=== PATIENT | male | born 1935 | race Caucasian/White ===

== ENCOUNTER 2017-08-03 02:17 | Inpatient (IN) ==
[2017-08-03] MEDS ORDERED: 0.9 % Sodium Chloride 1,000 ML IVC ONE (02:33)
--- NOTE | 2017-08-03 02:35 | Emergency Department Note ---
Disposition Clinical Impression: Hyponatremia, Elevated troponin, VIRIDIANA (acute kidney injury), Elevated INR Leukocytosis Qualifiers: Leukocytosis type: unspecified Qualified Code(s): D72.829 - Elevated white blood cell count, unspecified Anemia Qualifiers: Anemia type: unspecified type Qualified Code(s): D64.9 - Anemia, unspecified Disposition: Transfer Other Condition: Fair Time of Disposition: 05:48 Weakness HPI - General Chief complaint: ED Weakness Stated complaint: AMS Time Seen by Provider: 08/03/17 02:23 Source: patient, family, EMS Limitations: no limitations Nursing Notes Reviewed: Yes Vital Signs Reviewed: Yes - History of Present Illness HPI Narrative: Patient is an 82-year-old male with past medical history of sepsis proximally 2- 3 weeks ago secondary to UTI, CHF, A. fib and currently on Coumadin, COPD, diabetes He also had a recent right ankle injury, sprain with reported negative x-rays at outside facility. He presents today due to generalized fatigue, altered mental status. states that over the past 1-2 days, patient has become increasingly confused, has had difficulty with ambulation. The patient himself denies any chest pain, shortness of breath, nausea, vomiting , fevers, bowel pain, dysuria, hematuria. Pain Scale: 0 - Related Data Home Medications Medication Instructions Recorded Confirmed Advair 500-50 Diskus 12/11/14 12/11/14 Aspirin 81 mg PO DAILY 12/11/14 12/11/14 Calcium 600 + D Tablet 600 mg PO DAILY 12/11/14 12/11/14 Cozaar 50 mg PO DAILY 12/11/14 12/11/14 Cymbalta 60 mg PO DAILY 12/11/14 12/11/14 Duoneb 3 mg PO Q4HR 12/11/14 12/11/14 Furosemide 40 mg PO 1-2XD 12/11/14 12/11/14 Glucosamine Sulfate 500 mg PO BID 12/11/14 12/11/14 HumaLOG 100 ml SQ DAILY 12/11/14 12/11/14 Ketoconazole 2% CRM DAILY 12/11/14 12/11/14 Levemir 40 units SQ HS 12/11/14 12/11/14 Levothyroxine Sodium 75 mcg PO DAILY 12/11/14 12/11/14 Lipitor 40 mg PO DAILY 12/11/14 12/11/14 Losartan 50 mg PO DAILY 12/11/14 12/11/14 Metoprolol XL (24 HR) Succ 50 mg PO DAILY 12/11/14 12/11/14 Potassium Chloride 20 meq PO DAILY 12/11/14 12/11/14 Spiriva 18 mcg PO DAILY 12/11/14 12/11/14 Vitamin E 400 mg PO 1-2XD 12/11/14 12/11/14 Warfarin 7.5 mg PO DAILY 12/11/14 12/11/14 Allergies Allergy/AdvReac Type Severity Reaction Status Date / Time metformin [From Glucophage] Allergy Diarrhea Verified 12/11/14 11:57 All systems ED: reviewed and negative except as stated. Constitutional: Denies: fever Cardiovascular: Denies: chest pain Respiratory: Denies: cough, dyspnea Gastrointestinal: Denies: abdominal pain, nausea, vomiting, diarrhea Neurological: Reports: confusion, abnormal gait. Denies: headache, weakness, numbness, paresthesias Endocrine: Reports: fatigue Past Medical History - Past Medical History Attestation: Yes The following information was validated with the patient. Source: patient Medical history: Reports: COPD, diabetes Psychiatric history: Reports: no psych history - Social History Smoking Status: Former smoker Physical Exam - General Limitations: no limitations General appearance: in no apparent distress - Head Head exam: atraumatic, normocephalic, normal inspection - Eye Eye exam: Present: normal appearance, PERRL, EOMI - ENT ENT exam: normal exam, normal oropharynx, mucous membranes moist - Neck Neck exam: Present: normal inspection, full ROM, trachea midline - Chest Chest inspection: Present: normal inspection, symmetric chest wall rise - Respiratory Respiratory exam: Present: normal lung sounds bilaterally - Cardiovascular Cardiovascular exam: Present: tachycardia, irregular rhythm, normal heart sounds - Abdominal Exam Abdominal exam: Present: soft, Non-Tender. Absent: tenderness, distention, guarding, rebound, rigidity - Extremities Exam Extremities exam: Present: full ROM, other (Right ankle and foot ecchymosis and mild edema from previous right ankle injury.) - Neurological Exam Neurological exam: Present: alert, oriented X3, CN II-XII intact. Absent: motor sensory deficit - Expanded Neurological Exam Patient oriented to: Present: person, place. Absent: time Speech: Present: fluid speech Cranial nerves: EOM function (II, III, IV, ): Normal, facial sensation (V): Normal, facial palsy (VII): Normal, spinal accessory function (XI): Normal, tongue deviation (XII): Normal Motor strength - LUE: 5/5 Motor strength - RUE: 5/5 Motor strength - LLE: 5/5 Motor strength - RLE: 5/5 Sensory exam upper extremity: light touch: Normal Sensory exam lower extremity: light touch: Normal Coma Scale Eye Opening: Spontaneous Coma Scale Motor Response: Obeys Commands Coma Scale Verbal Response: Confused Coma Scale Total: 14 - Psychiatric Psychiatric exam: Present: normal mood, flat affect - Skin Skin exam: Present: warm, dry, intact, normal color. Absent: rash Course Course Narrative: Patient was hypertensive on presentation with systolic blood pressure in 80s. However, after 1 L normal saline bolus, pressure has come up to systolic of 107. On exam, patient was oriented to person and place but not time. He thinks that this is the 1980s. Otherwise no focal neurologic deficits. Basic lab work obtained. Chest x-ray negative for any acute cardio pulmonary process. Urinalysis negative for UTI. CBC shows leukocytosis and mild anemia. BMP concerning for critically low sodium at 118. Creatinine above baseline, concern for a cab. Troponin elevated. Patient has no complete any chest pain or shortness of breath. EKG shows no acute ST changes. This could be secondary to demand ischemia. Patient was given aspirin. He was not started on any heparin at this time. 05:37 and discussed patient's case with the help desk operator, Dr. Chowdary. With patient having no chest pain or shortness of breath at this time but elevated troponin level of 0.77, she recommended that heparin be started if the INR not in therapeutic range. However, INR came back at 8. Will hold Coumadin, not start any heparin at this time. No signs of bleeding, no need for any reversal of this time. Accepted for admisison by Dr. Cobb. Chest X-Ray 08/03/17 02:33 IMPRESSION: 1. No acute process. 2. Findings suggestive of COPD. D/ / Aldair Craft MD / Aldair Craft MD Interpreting Provider: Aldair Craft MD Vital Signs Temperature 98.5 F 08/03/17 02:18 Pulse Rate 102 08/03/17 02:18 Respiratory Rate 18 08/03/17 02:18 Blood Pressure 87/60 08/03/17 02:18 O2 Sat by Pulse Oximetry 95 08/03/17 02:18 Temperature 98.5 F 08/03/17 02:18 Pulse Rate 92 08/03/17 05:43 Respiratory Rate 18 08/03/17 05:43 Blood Pressure 108/56 08/03/17 05:43 O2 Sat by Pulse Oximetry 99 08/03/17 05:43 Oxygen Delivery Oxygen Delivery Room Air Weakness - MDM Narrative Medical decision making narrative: Patient was hypertensive on presentation with systolic blood pressure in 80s. However, after 1 L normal saline bolus, pressure has come up to systolic of 107. On exam, patient was oriented to person and place but not time. He thinks that this is the . Otherwise no focal neurologic deficits. Basic lab work obtained. Chest x-ray negative for any acute cardio pulmonary process. Urinalysis negative for UTI. CBC shows leukocytosis and mild anemia. BMP concerning for critically low sodium at 118. Creatinine above baseline, concern for a cab. Troponin elevated. Patient has no complete any chest pain or shortness of breath. EKG shows no acute ST changes. This could be secondary to demand ischemia. Patient was given aspirin. He was not started on any heparin at this time. 05:37 and discussed patient's case with the help desk operator, Dr. Chowdary. With patient having no chest pain or shortness of breath at this time but elevated troponin level of 0.77, she recommended that heparin be started if the INR not in therapeutic range. However, INR came back at 8. Will hold Coumadin, not start any heparin at this time. No signs of bleeding, no need for any reversal of this time. Accepted for admisison by Dr. Cobb. - Medical Records Medical records reviewed: Yes I reviewed the patient's medical records. - Lab Data Lab results reviewed: Yes I reviewed the patient's lab results. Result diagrams: 08/03/17 02:33 08/03/17 02:33 Lab Results 08/03/17 08/03/17 08/03/17 Range/Units 02:33 02:33 02:55 WBC 15.9 H (4.3-11.1) K/mcL RBC 3.90 L (4.19-5.50) M/mcL Hgb 11.6 L (12.9-16.9) g/dL Hct 32.9 L (37.5-50.1) % MCV 84.4 (83.0-100.0) fL MCH 29.7 (28.0-33.3) pg MCHC 35.3 (31.6-35.5) g/dL RDW 16.2 H (11.5-14.5) % Plt Count 339 (140-400) K/mcL MPV 9.3 L (9.4-12.4) fL Immature Gran % 2.0 (0-4) % Seg Neutrophils % 84.7 % Lymphocytes % 3.8 % Monocytes % 8.8 % Eosinophils % 0.6 % Basophils % 0.1 % Neutrophils # 13.5 H (1.6-8.9) K/mcL Lymphocytes # 0.6 (0.6-4.6) K/mcL Monocytes # 1.4 H (0.0-1.3) K/mcL Eosinophils # 0.1 (0.0-0.6) K/mcL Basophils # 0.0 (0.0-0.2) K/mcL PT (9.4-12.1) Seconds INR APTT (26.0-36.0) Seconds Sodium 118 L* (136-145) mEq/L Potassium 4.7 (3.5-5.1) mEq/L Chloride 83 L (98-107) mEq/L Carbon Dioxide 23 (23-29) mEq/L BUN 118 H (8-23) mg/dL Creatinine 2.23 H (0.70-1.30) mg/dL Est GFR ( Amer) 34 L (> 60) Est GFR (Non-Af Amer) 28 L (> 60) BUN/Creatinine Ratio 53 H (6-26) Glucose 271 H (70-105) mg/dL Calculated Osmolality 293 (280-300) Lactic Acid 2.4 H (0.5-2.2) mmol/L Calcium 8.7 (8.6-10.3) mg/dL Total Bilirubin 0.7 (0.3-1.0) mg/dL AST 73 H (13-39) Units/L ALT 28 (7-52) Units/L Alkaline Phosphatase 83 (34-104) Units/L Troponin I 0.77 H* (< 0.04) ng/mL Serum Total Protein 6.9 (6.4-8.9) g/dL Albumin 3.5 (3.5-5.7) g/dL Globulin 3.4 (2.4-3.5) g/dL Albumin/Globulin Ratio 1.0 L (1.1-2.2) Urine Color (Yellow) Urine Clarity (Clear) Urine pH (5.0-8.0) pH Units Ur Specific [place] (1.010-1.025) Urine Protein (Neg-Trace) mg/dL Urine Glucose (UA) (Normal) mg/dL Urine Ketones (Negative) mg/dL Urine Blood (Negative) Urine Nitrite (Negative) Urine Bilirubin (Negative) Urine Urobilinogen (Normal) mg/dL Ur Leukocyte Esterase (Negative) Urine Microscopic RBC (0-3) per hpf Urine Microscopic WBC (0-3) per hpf Ur Squamous Epith Cells (None-Few) per lpf Urine Bacteria (None-Few) per hpf Hyaline Casts (None-Few) per lpf Ur Culture Indicated? (NO) 08/03/17 08/03/17 Range/Units 02:55 03:41 WBC (4.3-11.1) K/mcL RBC (4.19-5.50) M/mcL Hgb (12.9-16.9) g/dL Hct (37.5-50.1) % MCV (83.0-100.0) fL MCH (28.0-33.3) pg MCHC (31.6-35.5) g/dL RDW (11.5-14.5) % Plt Count (140-400) K/mcL MPV (9.4-12.4) fL Immature Gran % (0-4) % Seg Neutrophils % % Lymphocytes % % Monocytes % % Eosinophils % % Basophils % % Neutrophils # (1.6-8.9) K/mcL Lymphocytes # (0.6-4.6) K/mcL Monocytes # (0.0-1.3) K/mcL Eosinophils # (0.0-0.6) K/mcL Basophils # (0.0-0.2) K/mcL PT 90.3 H* (9.4-12.1) Seconds INR 8.0 H* APTT 49.7 H (26.0-36.0) Seconds Sodium (136-145) mEq/L Potassium (3.5-5.1) mEq/L Chloride (98-107) mEq/L Carbon Dioxide (23-29) mEq/L BUN (8-23) mg/dL Creatinine (0.70-1.30) mg/dL Est GFR ( Amer) (> 60) Est GFR (Non-Af Amer) (> 60) BUN/Creatinine Ratio (6-26) Glucose (70-105) mg/dL Calculated Osmolality (280-300) Lactic Acid (0.5-2.2) mmol/L Calcium (8.6-10.3) mg/dL Total Bilirubin (0.3-1.0) mg/dL AST (13-39) Units/L ALT (7-52) Units/L Alkaline Phosphatase (34-104) Units/L Troponin I (< 0.04) ng/mL Serum Total Protein (6.4-8.9) g/dL Albumin (3.5-5.7) g/dL Globulin (2.4-3.5) g/dL Albumin/Globulin Ratio (1.1-2.2) Urine Color Yellow (Yellow) Urine Clarity Clear (Clear) Urine pH 6.0 (5.0-8.0) pH Units Ur Specific [place] 1.012 (1.010-1.025) Urine Protein Negative (Neg-Trace) mg/dL Urine Glucose (UA) 100 H (Normal) mg/dL Urine Ketones Negative (Negative) mg/dL Urine Blood Small H (Negative) Urine Nitrite Negative (Negative) Urine Bilirubin Negative (Negative) Urine Urobilinogen Normal (Normal) mg/dL Ur Leukocyte Esterase Small H (Negative) Urine Microscopic RBC 0-3 (0-3) per hpf Urine Microscopic WBC 5-15 H (0-3) per hpf Ur Squamous Epith Cells Moderate H (None-Few) per lpf Urine Bacteria None Seen (None-Few) per hpf Hyaline Casts None Seen (None-Few) per lpf Ur Culture Indicated? YES A (NO) - Radiology Data Radiology results reviewed: Yes I reviewed the patient's radiology results. Chest X-Ray 08/03/17 02:33 IMPRESSION: 1. No acute process. 2. Findings suggestive of COPD. D/ / Aldair Craft MD / Aldair Craft MD Interpreting Provider: Aldair Craft MD - EKG Data EKG attestation: Yes I reviewed and interpreted this EKG. EKG results narrative: 08/03/2017 02:42. A. fib. Rate 80. QRS 92. QTC 393. Normal axis. No acute ST elevation or depression. Attestation Statement - Attestation Attestation: I examined this patient and my medical decision-making was reviewed with the Resident Physician. I agree with the documented findings, disposition and treatment plan as described except to the extent set forth below. Findings consistent with altered mental status. The patient does have hyponatremia and weakness. There was intermittent hypotension. Initially the family requests transfer [facility] but ultimately they cannot offer cardiology support and the patient will be admitted here due to an STEMI, hyponatremia, hypotension, possible sepsis. I spent greater than 35 minutes of critical care time resuscitating this acutely ill patient suffering from hyponatremia, hypotension, sepsis. This was excluding billable procedures.
[2017-08-03 03:12] LABS: Basophils % 0.1 %; Eosinophils # 0.1 K/mcL (0.0-0.6); Eosinophils % 0.6 %; Hematocrit 32.9 % (37.5-50.1); Hemoglobin 11.6 g/dL (12.9-16.9); Lymphocytes # 0.6 K/mcL (0.6-4.6); Lymphocytes % 3.8 %; Mean Corpuscular HGB Conc 35.3 g/dL (31.6-35.5); Mean Corpuscular Hemoglobin 29.7 pg (28.0-33.3); Mean Corpuscular Volume 84.4 fL (83.0-100.0); Mean Platelet Volume 9.3 fL (9.4-12.4); Monocytes # 1.4 K/mcL (0.0-1.3); Monocytes % 8.8 %; Neutrophils # 13.5 K/mcL (1.6-8.9); Platelet Count 339 K/mcL (140-400); Red Cell Distribution Width 16.2 % (11.5-14.5); Segmented Neutrophils % 84.7 %
[2017-08-03] MEDS ORDERED: Piperacillin/Tazobactam 3.375 GM in 0.9 % Sodium Chloride Mini Bag 100 ML IVPB ONE (03:28)
[2017-08-03] MEDS ORDERED: Aspirin 325 MG TABLET PO ONE (03:36)
[2017-08-03 03:37] LABS: Albumin 3.5 g/dL (3.5-5.7); Bilirubin,Total 0.7 mg/dL (0.3-1.0); Calcium 8.7 mg/dL (8.6-10.3); Globulin 3.4 g/dL (2.4-3.5); Potassium 4.7 mEq/L (3.5-5.1); Total Protein 6.9 g/dL (6.4-8.9); Troponin I 0.77 ng/mL (< 0.04)
[2017-08-03 03:58] LABS: Bilirubin,Urine Negative (Negative); Blood,Urine Small (Negative); Clarity,Urine Clear (Clear); Color,Urine Yellow (Yellow); Glucose,Urine (UA) 100 mg/dL (Normal); Ketones,Urine Negative (Negative); Leukocyte Esterase,Urine Small (Negative); Nitrite,Urine Negative (Negative); Protein,Urine Negative (Neg-Trace); Specific Gravity,Urine 1.012 (1.010-1.025); Urobilinogen,Urine Normal (Normal)
[2017-08-03 04:01] LABS: Bacteria,Urine None Seen per hpf (None-Few); Hyaline Casts,Urine None Seen per lpf (None-Few); RBC,Urine 0-3 per hpf (0-3); Squamous Epithelial Cell,Urine Moderate per lpf (None-Few)
[2017-08-03 05:29] LABS: Activated Partial Thrombo Time 49.7 Seconds (26.0-36.0)
[2017-08-03] MEDS ORDERED: 0.9 % Sodium Chloride 1,000 ML IVC SCH ×2 (05:30→06:15)
[2017-08-03 05:31] LABS: Prothrombin Time 90.3 Seconds (9.4-12.1)
--- NOTE | 2017-08-03 05:57 | Internal Med History&Physical ---
Date of Encounter: 08/03/17 Time of Encounter: 05:50 Internal Medicine - H&P: HPI Chief complaint: fall/confusion Admitted From: Home Plans for Post Hospital Care: Home History of present illness: Mr. Mack is a 82 year old male w/ pmh of recent UTI sepsis, recent "sprained ankles", COPD, DM on insulin, hypothyroid, HTN, afib, CHF, GERD presented to [place] after experiencing a fall and confusion. Patient late last night got up to have a bowel movement in the restroom, after he finished he got up and on his way back experienced a fall. Patient's was unable to get patient up, and she called squad to get patient. Patient was brought to [place] and found to have an elevated trops and transferred to [place]. Fall was unwitnessed, and by the time patient arrived at [place] patient was confused and disoriented according to ED notes. Patient was poor historian, and history was gathered from . Patient denies chest pain, sob, abd pain, nausea, vomiting, diaphoresis. Past Med Surg Social Fam HX - Past Medical History Medical history: COPD, diabetes Psychiatric history: no psych history - Social History Smoking Status: Former smoker Internal Medicine - H&P: Meds Advair 500-50 Diskus 12/11/14 [History] Aspirin 81 mg PO DAILY 12/11/14 [History] Calcium 600 + D Tablet 600 mg PO DAILY 12/11/14 [History] Cozaar 50 mg PO DAILY 12/11/14 [History] Cymbalta 60 mg PO DAILY 12/11/14 [History] Duoneb 3 mg PO Q4HR 12/11/14 [History] Furosemide 40 mg PO 1-2XD 12/11/14 [History] Glucosamine Sulfate 500 mg PO BID 12/11/14 [History] HumaLOG 100 ml SQ DAILY 12/11/14 [History] Ketoconazole 2% CRM DAILY 12/11/14 [History] Levemir 40 units SQ HS 12/11/14 [History] Levothyroxine Sodium 75 mcg PO DAILY 12/11/14 [History] Lipitor 40 mg PO DAILY 12/11/14 [History] Losartan 50 mg PO DAILY 12/11/14 [History] Metoprolol XL (24 HR) Succ 50 mg PO DAILY 12/11/14 [History] Potassium Chloride 20 meq PO DAILY 12/11/14 [History] Spiriva 18 mcg PO DAILY 12/11/14 [History] Vitamin E 400 mg PO 1-2XD 12/11/14 [History] Warfarin 7.5 mg PO DAILY 12/11/14 [History] 3 Allergy/AdvReac Type Severity Reaction Status Date / Time metformin [From Glucophage] Allergy Diarrhea Verified 12/11/14 11:57 ROS unobtainable: due to mental status All Systems PM: A 10-system review of systems was performed and is negative for pertinent findings except as documented above in the HPI. - Constitutional Vitals: Temp Pulse Resp BP Pulse Ox 98.5 F 92 18 108/56 99 08/03/17 02:18 08/03/17 05:43 08/03/17 05:43 08/03/17 05:43 08/03/17 05:43 General appearance: Present: A&O X 1 (oriented to self. 1982, [facility]) , disheveled, obese. Absent: answers questions appropriately - Head Head exam: Present: atraumatic, normocephalic - Eye Eye exam: Present: PERRL, conjuntiva pink, sclera anicteric Pupils: Present: PERRL - Neck Neck exam general surgery: Present: supple, trachea midline. Absent: lymphadenopathy - Respiratory Respiratory exam: Present: wheezes. Absent: accessory muscle use, rales, rhonchi - Cardiovascular Cardiovascular exam: Present: RRR. Absent: diastolic murmur, gallop, rubs, systolic murmur - GI/Abdominal GI/Abdominal exam: Present: diminished bowel sounds, firm, no peritoneal signs. Absent: distended, guarding, hepatomegaly, rebound, tenderness - Extremities Exam Extremities exam: Present: tenderness (below knees bilaterally.), warm, radial pulses palpable and symmetrical. Absent: calf tenderness, cyanotic, pedal edema Additional comments: bilateral below knee contusions - Neurological Exam Neurological exam: Present: alert, CN II-XII intact, no focal deficits. Absent : pronater drift, facial droop, speech deficit Additional comments: patient was unable to follow command for neuro exam - Skin Skin exam: Present: dry, intact Internal Med - H&P Results - Labs CBC & Chem 7: 08/03/17 02:33 08/03/17 02:33 Labs: Short CBC 08/03/17 Range/Units 02:33 WBC 15.9 H (4.3-11.1) K/mcL Hgb 11.6 L (12.9-16.9) g/dL Hct 32.9 L (37.5-50.1) % Plt Count 339 (140-400) K/mcL Neutrophils # 13.5 H (1.6-8.9) K/mcL BMP 08/03/17 02:33 Sodium 118 L* Potassium 4.7 Chloride 83 L Carbon Dioxide 23 BUN 118 H Creatinine 2.23 H Glucose 271 H Calcium 8.7 Cardiac Enzymes 08/03/17 Range/Units 02:33 Troponin I 0.77 H* (< 0.04) ng/mL Liver Function 08/03/17 Range/Units 02:33 Total Bilirubin 0.7 (0.3-1.0) mg/dL AST 73 H (13-39) Units/L ALT 28 (7-52) Units/L Alkaline Phosphatase 83 (34-104) Units/L Albumin 3.5 (3.5-5.7) g/dL Urine 08/03/17 Range/Units 03:41 Urine Color Yellow (Yellow) Urine Clarity Clear (Clear) Urine pH 6.0 (5.0-8.0) pH Units Ur Specific [place] 1.012 (1.010-1.025) Urine Protein Negative (Neg-Trace) mg/dL Urine Glucose (UA) 100 H (Normal) mg/dL - Impressions ITS Impressions Chest X-Ray 08/03/17 02:33 IMPRESSION: 1. No acute process. 2. Findings suggestive of COPD. D/ / Aldair Craft MD / Aldair Craft MD Interpreting Provider: Aldair Craft MD - Assessment and plan (1) Elevated troponin Current Visit: Yes Status: Acute Assessment and plan: Trops on admission 0.77. patient is currently asymptomatic but is also confused. EKG showed no ischemic changes - cardiology consulted - serial trops (2) Elevated INR Current Visit: Yes Status: Acute Assessment and plan: patient has INR of 8.0 on admission most likely 2/2 VIRIDIANA and poor renal clearance of coumadin. Patient is on coumadin for afib - hold coumadin for now. (3) VIRIDIANA (acute kidney injury) Current Visit: Yes Status: Acute Assessment and plan: Cr elevated on admission most likely 2/2 dehydration. Will hydrate and follow closely. Patient is on Turosemide at [place] will order labs for FEUrea - consult nephro - continue IVF - trend Cr - urine creatinine and urine urea ordered (4) High ankle sprain of left lower extremity Current Visit: Yes Status: Acute Assessment and plan: previous worked up a gonzalez, no fracture Qualifiers: Qualified Code(s): S93.432A - Sprain of tibiofibular ligament of left ankle, initial encounter (5) High ankle sprain of right lower extremity Current Visit: Yes Status: Acute Assessment and plan: previous worked up a gonzalez, no fracture Qualifiers: Qualified Code(s): S93.431A - Sprain of tibiofibular ligament of right ankle , initial encounter (6) Anemia Current Visit: Yes Status: Acute Assessment and plan: hgb on admissions 11.6. may be contributing to patient AMS. Patient is high risk and will follow closely - daily h/h Qualifiers: Anemia type: unspecified type Qualified Code(s): D64.9 - Anemia, unspecified (7) Hyponatremia Current Visit: Yes Status: Acute Assessment and plan: Na on admission 118. fluid given in ED - trend Na q4h - continue IVF - uOSM, Jose ordered (8) Leukocytosis Current Visit: Yes Status: Acute Assessment and plan: WBC on admission 15.9, may be in the setting of recent ankle sprain. Patient was recently hospitalized for sepsis with UTI as source, patient is high risk. No other SIRS criteria met. - closely follow vitals - morning labs Qualifiers: Leukocytosis type: unspecified Qualified Code(s): D72.829 - Elevated white blood cell count, unspecified (9) Diabetes mellitus with neuropathy Current Visit: Yes Status: Acute Assessment and plan: hold home insulin. medium SSI Qualifiers: Diabetes mellitus type: type 2 Qualified Code(s): E11.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, unspecified; Z79.4 - investment counselor (current) use of insulin (10) Hypothyroid Current Visit: Yes Status: Acute Assessment and plan: continue home Rx Qualifiers: Qualified Code(s): E03.9 - Hypothyroidism, unspecified (11) Afib Current Visit: Yes Status: Acute Assessment and plan: currently controlled, continue home rx Qualifiers: Qualified Code(s): I48.91 - Unspecified atrial fibrillation (12) COPD (chronic obstructive pulmonary disease) Current Visit: Yes Status: Acute Assessment and plan: history of COPD, patient does not clinically have COPD exacerbation symptoms. Will continue to monitor closely Qualifiers: Qualified Code(s): J44.9 - Chronic obstructive pulmonary disease, unspecified (13) CHF (congestive heart failure) Current Visit: Yes Status: Acute Assessment and plan: reported history of COPD. continue home rx - ordered BNP Qualifiers: Qualified Code(s): I50.9 - Heart failure, unspecified (14) GERD (gastroesophageal reflux disease) Current Visit: Yes Status: Acute Assessment and plan: continue home rx. Qualifiers: Qualified Code(s): K21.9 - Gastro-esophageal reflux disease without esophagitis (15) Hypertension Current Visit: Yes Status: Acute Assessment and plan: currently stable, continue home rx Qualifiers: Qualified Code(s): I10 - Essential (primary) hypertension (16) Goals of care, counseling/discussion Current Visit: Yes Status: Acute Assessment and plan: is PoA. [facility] [phone]. has PoA and DNR/DNI/CCA paper work. (17) Confusion Current Visit: Yes Status: Acute Assessment and plan: serial clinical exams (18) Fall Current Visit: Yes Status: Acute Assessment and plan: unwitness fall. Patient is high risk due to INR of 8.0, confusion and PMHx. - Ordered CT head to rule out brain hemorrhage. Qualifiers: Qualified Code(s): W19.XXXA - Unspecified fall, initial encounter (19) DVT prophylaxis Current Visit: Yes Status: Acute Assessment and plan: EPCD. holding coumadin due to INR ~8 - Time Spent With Patient Total time spent is greater than 50% in coordination of care (as documented) at patient's floor/unit and/or counseling patient:
[2017-08-03] MEDS ORDERED: D5% in Water 1,000 ML IVC PRN (06:14)
[2017-08-03] MEDS ORDERED: Dextrose Gel 15 GM/37.5 ML TUBE PO PRN ×2 (06:14)
[2017-08-03] MEDS ORDERED: *HR* Dextrose 50 % in Water (Syg) 50 ML SYRINGE IVP PRN (06:14)
[2017-08-03] MEDS ORDERED: Naloxone 0.4 MG/ML INJ IVP PRN (06:15)
--- NOTE | 2017-08-03 06:37 | Event Note ---
Date of Encounter: 08/03/17 Time of Encounter: 06:29 Patient was seen and examined. I agree with the H&P as written by the Resident Physician. Briefly, patient with history of recent hospitalization for UTI sepsis at [place] and discharged about 3 weeks. ago. Has not been himself since discharged and progressively weak. Signs of confusion since last week but nothing major. Last couple of days he has been more confused. Per his , he has had a decrease in his normal oral intake by about half since discharge from there. He had sprained his right ankle about a week ago. Today, she was walking him to the bathroom and he kid of fell but never hit his head. He was confused and she couldnt get him up. They ended up here where laboratory work up showed sings of dehydration and low Na at 118. INR 8.0. Trops .77. No reported chest pain. Cardiology were made aware and recommended no heparin drip as long as his INR is therapeutic. The patient was given 1L NS in the ED and ASA 325 mg and IV vancomycin On exam vitals are stable he is alert to self and thinks he is at [place]. He told me the year was 2017 but told others otherwise. irregular but rate controlled CTAB Distended, NT, +BS Trace LE edema. right ankle wrapped Nonfocal, pupils equal and reactive Will admit to hospitalist c/s nephrology Repeat Na STAT and will base further management based on that. Serial Na checks NS at 100 cc/hr for now Hold nephrotoxins. Trend cardiac enzymes. Cardiology is consulted Likely all demand ischemia Hold Coumadin. CT head STAT
[2017-08-03] MEDS: Ipratropium/Albuterol Neb 3 ML IH SCH ×5 (07:30→23:13)
[2017-08-03] MEDS: Tiotropium 18 MCG inhalation IH SCH (07:32)
[2017-08-03 07:55] LABS: Calcium 8.9 mg/dL (8.6-10.3); Potassium 4.4 mEq/L (3.5-5.1)
[2017-08-03] MEDS ORDERED: GLUCOSAMINE SULFATE 500 MG PO SCH (09:00)
[2017-08-03] MEDS ORDERED: CALCIUM PO SCH (09:00)
[2017-08-03] MEDS ORDERED: [UNRECOGNIZED DRUG - OTHER] PO SCH (09:00)
[2017-08-03] MEDS ORDERED: Spironolactone 25 MG TABLET PO SCH (09:00)
--- NOTE | 2017-08-03 09:05 | Nephrology Consult Note ---
Date of Encounter: 08/03/17 Time of Encounter: 09:00 Assessment and Plan (1) VIRIDIANA (acute kidney injury) Current Visit: Yes Status: Acute Unsure if worsening renal function or VIRIDIANA. As mentioned, said he was supposed to see a premises technician outpatient. Continue to avoid nephrotoxins and renal dose all medications. Continue to encourage PO intake. (2) CHF (congestive heart failure) Current Visit: Yes Status: Chronic Per primary team. Qualifiers: Heart failure type: unspecified Heart failure chronicity: unspecified Qualified Code(s): I50.9 - Heart failure, unspecified (3) Hyponatremia Current Visit: Yes Status: Acute Will trend. Labs ordered to rule out other processes. Will check every 4 hours. History of Present Illness - Reason for Consult hyponatremia - Chief Complaint weakness - History of Present Illness Mr. Mack is an 82 year old male admitted to ICU last night. He presented to ED for AMS, weakness. is at bedside now and reports he has had "difficulty even walking". He was in the hospital 2-3 weeks ago for sepsis with UTI. PMH: CHF, AFIB (currently on Coumadin), COPD and DM. He also sprained his ankle, recently per other records there is no fracture. Patient is poor historian but states he was supposed to see Creative Developer at another facility but was unable to keep appointment, she thinks it was for increasing Scr. Hyponatremia most likely from hypovolemia, will continue gentle hydration. Past Med Surg Social Fam HX - Past Medical History Medical history: COPD, diabetes Psychiatric history: no psych history - Past Surgical History Surgical History: cancer surgery, prostatectomy - Social History Smoking Status: Former smoker Alcohol use: none Drug use: none Medications and Allergies Atorvastatin Calcium [Lipitor] 80 mg PO HS 08/03/17 [History] Budesonide/Formoterol 160/4.5 [Symbicort 160/4.5] 2 puff IH BIDR 08/03/17 [ History] Insulin DETEMIR [Levemir Flextouch] 40 - 50 unit SQ HS 08/03/17 [History] Insulin LISPRO [Humalog Kwikpen U-100] 0 unit SQ TID PRN 08/03/17 [History] Levothyroxine Sodium [Levoxyl] 175 mcg PO DAILY 08/03/17 [History] Losartan Potassium [Cozaar] 50 mg PO DAILY 08/03/17 [History] Metoprolol [Lopressor] 50 mg PO BID 08/03/17 [History] Metoprolol [Lopressor] 50 mg PO BID 08/03/17 [History] Omeprazole [PriLOSEC] 20 mg PO DAILY 08/03/17 [History] Potassium Chloride [K-Tab ER] 80 meq PO BID 08/03/17 [History] Spironolactone [Aldactone] 25 mg PO DAILY 08/03/17 [History] Tiotropium [Spiriva] 18 mcg IH DAILY 08/03/17 [History] Torsemide [Demadex] 100 mg PO BID 08/03/17 [History] Warfarin [Coumadin] 8.5 mg PO DAILY 08/03/17 [History] metOLazone [Metolazone] 10 mg PO DAILY 08/03/17 [History] 3 Allergy/AdvReac Type Severity Reaction Status Date / Time metformin [From Glucophage] Allergy Diarrhea Verified 12/11/14 11:57 Review of Systems ROS unobtainable: due to mental status Exam - Vital Signs Vital signs: Initial Vital Signs Temp Pulse Resp BP Pulse Ox 98.5 F 102 18 87/60 95 08/03/17 02:18 08/03/17 02:18 08/03/17 02:18 08/03/17 02:18 08/03/17 02:18 Vital Signs - Last 8 Hours Temp Pulse Resp BP Pulse Ox 08/03/17 07:30 16 93 08/03/17 06:40 98.1 F 94 12 114/86 Intake and Output 08/02/17 08/03/17 08/03/17 23:59 07:59 15:59 Intake Total 250 / 1250 Balance 250 / 1250 Intake: IV Fluids 250 / 250 Vancocin 1,500 MG In 0.9 % 250 / 250 Sodium Chloride 250 ML @ 167 mls/hr IVPB ONCE ONE Rx#: [id number] Other: Weight 105.3 kg Blood Glucose* 173 Patient Weight 08/03/17 23:59 Weight 105.3 kg - General Appearance General appearance: fatigue, frail EENT: ATNC, hearing intact, vision intact Respiratory: clear Cardiology: edema Additional Comments: RLE Gastrointestinal: normoactive bowel sounds, no tenderness, no guarding Integumentary: no rash, warm and dry Neurologic: alert and oriented x3 Psychiatric: mood/affect appropriate, cooperative Results - Lab Results 08/03/17 02:33 08/03/17 11:40 Most recent lab results Calcium 8.9 mg/dL (8.6-10.3) 08/03/17 07:18 Consult Discharge Plan - Plan Referrals: Garth Little DO [Primary Care Provider] -
--- NOTE | 2017-08-03 09:37 | Electrocardiograph Report ---
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
[2017-08-03] MEDS: 0.9 % Sodium Chloride 1,000 ML IVC SCH ×2 (09:58→23:26)
[2017-08-03] MEDS: Aspirin 81 MG TAB.CHEW PO SCH (09:59)
[2017-08-03] MEDS: Insulin LISPRO 300 UNITS/3 ML VIAL SQ SCH ×4 (10:03→20:00)
[2017-08-03 10:53] LABS: Thyroid Stimulating Hormone 0.104 mcIU/mL (0.340-5.600)
[2017-08-03 11:31] LABS: Uric Acid 9.6 mg/dL (2.3-7.6)
[2017-08-03 12:03] LABS: Bilirubin,Urine Negative (Negative); Blood,Urine Trace (Negative); Clarity,Urine Clear (Clear); Color,Urine Yellow (Yellow); Glucose,Urine (UA) Normal (Normal); Ketones,Urine Negative (Negative); Leukocyte Esterase,Urine Small (Negative); Nitrite,Urine Negative (Negative); Protein,Urine Negative (Neg-Trace); Specific Gravity,Urine 1.016 (1.010-1.025); Urobilinogen,Urine Normal (Normal)
[2017-08-03 12:06] LABS: Bacteria,Urine None Seen per hpf (None-Few); Hyaline Casts,Urine None Seen per lpf (None-Few); RBC,Urine 0-3 per hpf (0-3); Squamous Epithelial Cell,Urine Moderate per lpf (None-Few); WBC,Urine 0-3 per hpf (0-3)
[2017-08-03 12:11] LABS: Troponin I 0.03 ng/mL (< 0.04)
[2017-08-03 12:11] LABS: Creatinine,Urine 36 mg/dL
[2017-08-03 12:12] LABS: Protein/Creatinine Ratio,Urine 0.31 mg/mg (0.00-0.20)
[2017-08-03 12:15] LABS: Calcium 8.9 mg/dL (8.6-10.3); Potassium 3.8 mEq/L (3.5-5.1)
--- NOTE | 2017-08-03 12:31 | Cardiology Consult Note ---
Date of Encounter: 08/03/17 Time of Encounter: 12:00 Assessment and Plan (1) Elevated troponin Current Visit: Yes Status: Acute Troponin 0.77, 0.04 in the setting of acute confusion secondary to VIRIDIANA, hyponatremia. No not suspect ACS No acute ST/T wave abnormalities noted per ECG. Hx of remote PCI, follows with in [place], [place] for Cardiology. Prior EF 55% 2016 per old records. No chest pain reported. INR supratherapeutic upon admission, 8.0. Continue asa, statin, BB. Currently recommend medical therapy, no indication for cardiac rehab. Check TTE to evaluate structure and function. (2) VIRIDIANA (acute kidney injury) Current Visit: Yes Status: Acute Unclear baseline. SCr improved with IV hydration, Nephrology following. (3) CHF (congestive heart failure) Current Visit: Yes Status: Chronic Reported hx of CHF. Mild volume overload on exam, also with VIRIDIANA. Per old records (ecw), EF 55% with normal RV function in 2016. Suspect hx of diastolic CHF. Volume mgmt per Nephrology. Continue betablocker. Qualifiers: Heart failure type: unspecified Heart failure chronicity: unspecified Qualified Code(s): I50.9 - Heart failure, unspecified (4) Afib Current Visit: Yes Status: Acute Reported longstanding hx of atrial fibrillation. INR supratherapeutic upon admission, 8.0. Recent hospitalization with sepsis, d/ c'ed on po antibiotics, unclear when INR last checked as outpt. Recommend resuming coumadin when INR falls below 2.0. Qualifiers: Atrial fibrillation type: persistent Qualified Code(s): I48.1 - Persistent atrial fibrillation Discussion w patient/family: The assessment and plan as outlined above was discussed with the patient and/or family members who expressed understanding and agreement. All questions were answered. Thank you for involving us in the care of your patient. Please call with any questions. The patient will be discussed and reviewed with Dr. Pozo; changes to be made accordingly. History of Present Illness Consult date: 08/03/17 Requesting physician: Peter Anne Consult reason: elevated trop Chief complaint: AMS History of present illness: Mr. Mack is a 82 year old male with PMHx significant for COPD, afib on coumadin, reported CHF, DMII, HTN, HLD CAD s/p remote PCI who presented to the ED with weakness and confusion. He was found to be hyponatremic with Na 118. Family reports recent fall with sprained right ankle. Also reports recent prolonged hospitalization at the end of June at [place] for urosepsis with subsequent transfer to [place] d/t reported urinary catheter issues. Patient is alert and oriented upon exam. He denies any chest pain or discomfort. His INR was 8.0 upon admission, reports INR checked once a month, recently on IV atb. Follows with Dr. Garcia for Cardiology care. Cardiology consulted for elevated troponin. No acute ST/T wave abnormalities noted per ECG. Past Med Surg Social Fam HX - Past Medical History Attestation: Yes The following information was validated with the patient. Medical history: atrial fibrillation, COPD, coronary artery disease, diabetes, hyperlipidemia, hypertension Psychiatric history: no psych history - Past Surgical History Surgical History: cancer surgery, prostatectomy - Social History Smoking Status: Former smoker Alcohol use: none Drug use: none Medications and Allergies Atorvastatin Calcium [Lipitor] 80 mg PO HS 08/03/17 [History] Budesonide/Formoterol 160/4.5 [Symbicort 160/4.5] 2 puff IH BIDR 08/03/17 [ History] Insulin DETEMIR [Levemir Flextouch] 40 - 50 unit SQ HS 08/03/17 [History] Insulin LISPRO [Humalog Kwikpen U-100] 0 unit SQ TID PRN 08/03/17 [History] Levothyroxine Sodium [Levoxyl] 175 mcg PO DAILY 08/03/17 [History] Losartan Potassium [Cozaar] 50 mg PO DAILY 08/03/17 [History] Metoprolol [Lopressor] 50 mg PO BID 08/03/17 [History] Metoprolol [Lopressor] 50 mg PO BID 08/03/17 [History] Omeprazole [PriLOSEC] 20 mg PO DAILY 08/03/17 [History] Potassium Chloride [K-Tab ER] 80 meq PO BID 08/03/17 [History] Spironolactone [Aldactone] 25 mg PO DAILY 08/03/17 [History] Tiotropium [Spiriva] 18 mcg IH DAILY 08/03/17 [History] Torsemide [Demadex] 100 mg PO BID 08/03/17 [History] Warfarin [Coumadin] 8.5 mg PO DAILY 08/03/17 [History] metOLazone [Metolazone] 10 mg PO DAILY 08/03/17 [History] 3 Allergy/AdvReac Type Severity Reaction Status Date / Time metformin [From Glucophage] Allergy Diarrhea Verified 12/11/14 11:57 All Systems Review: The remainder of the systems were reviewed and are negative - Cardiovascular Cardiovascular: as per HPI Physical Examination Vital Signs, Last 4 Hours Temp Pulse Resp BP Pulse Ox 08/03/17 12:00 89 15 117/106 95 08/03/17 11:47 97.8 F 08/03/17 11:38 16 96 08/03/17 10:00 85 12 96/59 95 General: Conversant HEENT: Atraumatic, Normocephaly Cardiac: Other (irregularly irregular) Neuro: Alert and responsive Abdomen: Soft Skin: No rashes noted on visualized skin Musculoskeletal: No Chest Wall Tenderness Extremities: Normal Pulses, Other (right ankle bruise, mild edema noted) Results 08/03/17 02:33 08/03/17 11:40 Lab Results 08/03/17 08/03/17 08/03/17 07:18 07:18 09:45 Sodium 122 L Potassium 4.4 Chloride 86 L Carbon Dioxide 20 L BUN 116 H Creatinine 1.97 H Glucose 173 H Calcium 8.9 Troponin I 0.04 H* TSH 0.104 L 08/03/17 11:40 Sodium 125 L Potassium 3.8 Chloride 89 L Carbon Dioxide 27 BUN 105 H Creatinine 1.82 H Glucose 144 H Calcium 8.9 Troponin I 0.03 TSH Active Medications Albuterol/Ipratropium (Duoneb) 3 ml IH Q4HR ERIKA Stop: 02/02/18 08:01 Last Admin: 08/03/17 11:38 Dose: 3 ml Aspirin (Aspirin) 81 mg PO DAILY ERIKA Stop: 02/02/18 09:01 Last Admin: 08/03/17 09:59 Dose: Not Given Atorvastatin Calcium (Lipitor) 40 mg PO DAILY ERIKA Stop: 02/02/18 09:01 Last Admin: 08/03/17 09:59 Dose: Not Given Dextrose/Water (Dextrose 50% (Syg)) 25 ml IVP AD PRN PRN Reason: Hypoglycemia Stop: 02/02/18 06:15 Duloxetine HCl (Cymbalta) 60 mg PO DAILY [facility] Stop: 02/02/18 09:01 Last Admin: 08/03/17 09:59 Dose: Not Given Glucagon (Glucagen) 1 mg IM ONCE PRN PRN Reason: Hypoglycemia Stop: 02/02/18 06:15 Glucose (Gluctose) 15 gm PO ONCE PRN PRN Reason: Hypoglycemia Stop: 02/02/18 06:15 Glucose (Gluctose) 30 gm PO ONCE PRN PRN Reason: Hypoglycemia Stop: 02/02/18 06:15 Guaifenesin (Mucinex) 600 mg PO BID PRN PRN Reason: Congestion Stop: 02/02/18 06:31 Dextrose (Dextrose 5%) 1,000 mls @ 100 mls/hr IVC .Q10H PRN PRN Reason: HYPOGLYCEMIA Stop: 02/02/18 06:15 Sodium Chloride (0.9 % Sodium Chloride) 1,000 mls @ 75 mls/hr IVC .[id number] ERIKA Stop: 08/04/17 11:24 Last Admin: 08/03/17 09:58 Dose: 75 mls/hr Insulin Human Lispro (Humalog) 0 units SQ HS ERIKA PRN Reason: Protocol Stop: 02/02/18 21:01 Insulin Human Lispro (Humalog) 0 units SQ TIDAC ERIKA PRN Reason: Protocol Stop: 02/02/18 07:31 Last Admin: 08/03/17 10:03 Dose: Not Given Levothyroxine Sodium (Synthroid) 175 mcg PO 0630 [facility] Stop: 02/03/18 06:31 Metoprolol Tartrate (Lopressor) 50 mg PO BID ERIKA Stop: 02/02/18 09:01 Last Admin: 08/03/17 09:59 Dose: Not Given Naloxone HCl (Narcan) 0.4 mg IVP Q2MIN PRN PRN Reason: SEE COMMENTS Stop: 02/02/18 06:16 Omeprazole (Prilosec) 20 mg PO DAILY@0630 ERIKA PRN Reason: Protocol Stop: 02/03/18 06:31 Tiotropium Tony (Spiriva) 18 mcg IH DAILYR [facility] Stop: 02/02/18 10:01 Last Admin: 08/03/17 07:32 Dose: Not Given Vitamin E (Vitamin E) 400 unit PO BID ERIKA Stop: 02/02/18 09:01 Last Admin: 05/22/18 09:59 Dose: Not Given - Imaging and Cardiology Echo: pending Other Results: 12 hour tele: avg HR=93 afib. Consult Discharge Plan - Plan Referrals: Garth Little DO [Primary Care Provider] -
--- NOTE | 2017-08-03 13:23 | Podiatry Consult Note ---
Date of Encounter: 08/03/17 Time of Encounter: 12:45 Assessment and Plan (1) Traumatic ecchymosis of right ankle Current visit: Yes Status: Acute Ecchymosis and edema to right ankle with tenderness upon palpation secondary to fall. Patient had x-rays 6 days ago at [place] of right ankle and per daughter they were negative for fracture. Due to new fall last night will obtain x-rays of the right ankle and foot today. Will follow up with patient once x-rays are obtained and reviewed. Recommend ice, elevation and compression with mildred wrap while in bed. Qualifiers: Encounter type: initial encounter Qualified Code(s): S90.01XA - Contusion of right ankle, initial encounter (2) Diabetes mellitus with neuropathy Current visit: Yes Status: Acute Qualifiers: Diabetes mellitus type: type 2 Diabetes mellitus termite treater insulin use: unspecified termite treater insulin use status Qualified Code(s): E11.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, unspecified History of Present Illness HPI: Mr. Mack is a 82 year old male admitted to [place] for elevated troponins and frequent falls. Patient has a medical history significant for COPD, DM on insulin with neuropathy, hypothyroid, HTN, afib, CHF, GERD. Patient is lying in bed sleeping with daughter at bedside. Per daughter patient fell 6 days ago at home from weakness and was evaluated at [place], x rays were completed of the right ankle at that time and negative for a fracture. Patient was diagnosed with a sprained ankle and sent home with an mildred wrap. Daughter states patient fell last night and the right leg was turned out. The daughter then calleed the squad and patient was brought to the Emergency Department. Patient is very drowsy and unable to keep eyes open during exam. Per daughter patient lives at home with his and uses a walker but he has been very weak and unsteady. Patient pulls back on right leg upon palpation of right ankle. Past Med Surg Social Fam HX - Past Medical History Medical history: atrial fibrillation, COPD, coronary artery disease, diabetes, hyperlipidemia, hypertension Psychiatric history: no psych history - Past Surgical History Surgical History: cancer surgery, prostatectomy - Social History Smoking Status: Former smoker Alcohol use: none Drug use: none Medications and Allergies Atorvastatin Calcium [Lipitor] 80 mg PO HS 08/03/17 [History] Budesonide/Formoterol 160/4.5 [Symbicort 160/4.5] 2 puff IH BIDR 08/03/17 [ History] Insulin DETEMIR [Levemir Flextouch] 40 - 50 unit SQ HS 08/03/17 [History] Insulin LISPRO [Humalog Kwikpen U-100] 0 unit SQ TID PRN 08/03/17 [History] Levothyroxine Sodium [Levoxyl] 175 mcg PO DAILY 08/03/17 [History] Losartan Potassium [Cozaar] 50 mg PO DAILY 08/03/17 [History] Metoprolol [Lopressor] 50 mg PO BID 08/03/17 [History] Metoprolol [Lopressor] 50 mg PO BID 08/03/17 [History] Omeprazole [PriLOSEC] 20 mg PO DAILY 08/03/17 [History] Potassium Chloride [K-Tab ER] 80 meq PO BID 08/03/17 [History] Spironolactone [Aldactone] 25 mg PO DAILY 08/03/17 [History] Tiotropium [Spiriva] 18 mcg IH DAILY 08/03/17 [History] Torsemide [Demadex] 100 mg PO BID 08/03/17 [History] Warfarin [Coumadin] 8.5 mg PO DAILY 08/03/17 [History] metOLazone [Metolazone] 10 mg PO DAILY 08/03/17 [History] 3 Allergy/AdvReac Type Severity Reaction Status Date / Time metformin [From Glucophage] Allergy Diarrhea Verified 12/11/14 11:57 Physical Exam - Constitutional Vitals: Temp Pulse Resp BP Pulse Ox 97.8 F 89 15 117/106 95 08/03/17 11:47 08/03/17 12:00 08/03/17 12:00 08/03/17 12:00 08/03/17 12:00 Exam: Alert to self, drowsy. - Extremities Exam Additional comments: Dried scattered scabs to the anterior tibial region of the left leg. - Expanded Lower Extremities Exam Lower Leg exam: Present: ecchymosis (ecchymosis to the medial and lateral right ankle with ecchymosis to the medial aspect of the right lower leg. Right foot and ankle are edematous, no erythema, no fluctuance. Tenderness upon palpation. ) - Neurological Exam Additional comments: Patient pulls right leg back upon palpation of right ankle. - Vascular Capillary Refill: less than 3 seconds (pedal pulses palpable) - Ankle & Foot Appearance ankle: swelling (right ankle) Results - Labs Result Diagrams: 08/03/17 02:33 08/03/17 11:40 Labs: Abnormal lab results WBC 15.9 K/mcL (4.3-11.1) H 08/03/17 02:33 RBC 3.90 M/mcL (4.19-5.50) L 08/03/17 02:33 Hgb 11.6 g/dL (12.9-16.9) L 08/03/17 02:33 Hct 32.9 % (37.5-50.1) L 08/03/17 02:33 RDW 16.2 % (11.5-14.5) H 08/03/17 02:33 MPV 9.3 fL (9.4-12.4) L 08/03/17 02:33 Neutrophils # 13.5 K/mcL (1.6-8.9) H 08/03/17 02:33 Monocytes # 1.4 K/mcL (0.0-1.3) H 08/03/17 02:33 PT 90.3 Seconds (9.4-12.1) H* 08/03/17 02:55 INR 8.0 H* 08/03/17 02:55 APTT 49.7 Seconds (26.0-36.0) H 08/03/17 02:55 Sodium 125 mEq/L (136-145) L 08/03/17 11:40 Chloride 89 mEq/L (98-107) L 08/03/17 11:40 BUN 105 mg/dL (8-23) H 08/03/17 11:40 Creatinine 1.82 mg/dL (0.70-1.30) H 08/03/17 11:40 Est GFR ( Amer) 44 (> 60) L 08/03/17 11:40 Est GFR (Non-Af Amer) 36 (> 60) L 08/03/17 11:40 BUN/Creatinine Ratio 58 (6-26) H 08/03/17 11:40 Glucose 144 mg/dL (70-105) H 08/03/17 11:40 POC Glucose 162 mg/dL (70-99) H 08/03/17 11:24 Uric Acid 9.6 mg/dL (2.3-7.6) H 08/03/17 09:45 AST 73 Units/L (13-39) H 08/03/17 02:33 Albumin/Globulin Ratio 1.0 (1.1-2.2) L 08/03/17 02:33 TSH 0.104 mcIU/mL (0.340-5.600) L 08/03/17 09:45 Urine Blood Trace (Negative) H 08/03/17 11:00 Ur Leukocyte Esterase Small (Negative) H 08/03/17 11:00 Ur Squamous Epith Cells Moderate per lpf (None-Few) H 08/03/17 11:00 Ur Culture Indicated? YES (NO) A 08/03/17 11:00 Protein/Creatinin Ratio 0.31 mg/mg (0.00-0.20) H 08/03/17 11:00 All other labs normal. Consult Discharge Plan - Plan Referrals: Garth Little DO [Primary Care Provider] -
--- NOTE | 2017-08-03 16:48 | Internal Med Progress Note ---
Date of Encounter: 08/03/17 Time of Encounter: 09:10 - Assessment and plan (1) Hyponatremia Current Visit: Yes Status: Acute Assessment and plan: Severe hyponatremia Na on admission 118 Morning Na -122 Cont Q4h Na Our goal of correction 0.5meq/hr not mroe than 8-10 meq/day Goal for today 126-128 Adjust the IVF accordingly Nephro consulted (2) VIRIDIANA (acute kidney injury) Current Visit: Yes Status: Acute Assessment and plan: Due to dehydration improving cont IVF avoid nephro toxic meds (3) Elevated troponin Current Visit: Yes Status: Acute Assessment and plan: Trops on admission 0.77.. trending down No CP Resumed home meds - ASA, Statin and BB Will obtain recent 2 D Echo and Cardiac work up records from his primary card office Card consulted here (4) Acute metabolic encephalopathy Current Visit: Yes Status: Acute (5) Leukocytosis Current Visit: Yes Status: Acute Assessment and plan: Reactive no signs of inf cont close monitoring no need of abx Qualifiers: Leukocytosis type: unspecified Qualified Code(s): D72.829 - Elevated white blood cell count, unspecified (6) Elevated INR Current Visit: Yes Status: Acute Assessment and plan: patient has INR of 8.0 on admission most likely due to nutritional def / dehydration / VIRIDIANA No signs of active bleeding cont holding Coumadin check INR in AM (7) Diabetes mellitus with neuropathy Current Visit: Yes Status: Acute Assessment and plan: ISS and ADA diet when pt is fully awake ACHS accuchecks Qualifiers: Diabetes mellitus type: type 2 Diabetes mellitus workers compensation analyst insulin use: unspecified workers compensation analyst insulin use status Qualified Code(s): E11.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, unspecified (8) High ankle sprain of right lower extremity Current Visit: Yes Status: Acute Assessment and plan: previous worked up a gonzalez, no fracture Electron Microscopist consulted Qualifiers: Qualified Code(s): S93.431A - Sprain of tibiofibular ligament of right ankle , initial encounter (9) Hypothyroid Current Visit: Yes Status: Acute Assessment and plan: continue home Rx Qualifiers: Qualified Code(s): E03.9 - Hypothyroidism, unspecified (10) Afib Current Visit: Yes Status: Acute Assessment and plan: currently controlled, continue home rx Qualifiers: Atrial fibrillation type: persistent Qualified Code(s): I48.1 - Persistent atrial fibrillation (11) COPD (chronic obstructive pulmonary disease) Current Visit: Yes Status: Acute Assessment and plan: history of COPD, patient does not clinically have COPD exacerbation symptoms. Will continue to monitor closely Qualifiers: Qualified Code(s): J44.9 - Chronic obstructive pulmonary disease, unspecified (12) CHF (congestive heart failure) Current Visit: Yes Status: Chronic Assessment and plan: Mostly diastoic CHF Not in exacerbation resumed home meds except diuretics Qualifiers: Heart failure type: unspecified Heart failure chronicity: unspecified Qualified Code(s): I50.9 - Heart failure, unspecified (13) GERD (gastroesophageal reflux disease) Current Visit: Yes Status: Acute Assessment and plan: continue home rx. Qualifiers: Qualified Code(s): K21.9 - Gastro-esophageal reflux disease without esophagitis (14) Hypertension Current Visit: Yes Status: Acute Assessment and plan: currently stable, continue home rx Qualifiers: Qualified Code(s): I10 - Essential (primary) hypertension (15) Goals of care, counseling/discussion Current Visit: Yes Status: Acute Assessment and plan: is PoA. Nita Mack [phone]. has PoA and DNR/DNI/CCA paper work. (16) Fall Current Visit: Yes Status: Acute Assessment and plan: un witness fall. Patient is high risk due to INR of 8.0, confusion and PMHx. CT of head - no acute ICH Fall precautions Qualifiers: Qualified Code(s): W19.XXXA - Unspecified fall, initial encounter (17) DVT prophylaxis Current Visit: Yes Status: Acute Assessment and plan: EPCD. holding coumadin due to INR ~8 - Time Spent With Patient Total time spent is greater than 50% in coordination of care (as documented) at patient's floor/unit and/or counseling patient: - Subjective Interval history: Mr. Mack is a 82 year old male with PMHx significant for COPD, afib on coumadin, diastolic CHF, DMII, HTN, HLD CAD s/p remote PCI who presented to the ED with weakness and confusion. He was found to be hyponatremic with Na 118 and also have supra therapeutic INR. He does have frequent falls at home, recently had Rt ankle sprain 6 days ago had X ray taken at [facility] which were negative for fx. He also had UTI and Sepsis 3-4weeks ago initially admitted at [facility] [facility], later he was transferred to [facility] for further care and d/t reported urinary catheter issues. He was admmitted here for acute hyponatremmia, VIRIDIANA, elevated Troponin and supra therapeutic INR. When I saw him today he is sleepy, arousable, follwing all the commands. He is oriented x 3. Denied any CP / SOB. Talked to pt's at bed side and explained to her about current care - Constitutional Vitals: Temp Pulse Resp BP Pulse Ox 97.8 F 89 18 110/43 96 08/03/17 11:47 08/03/17 16:00 08/03/17 16:00 08/03/17 16:00 08/03/17 16:00 General appearance: Present: cooperative, A&O X 3, obese, answers questions appropriately - Head Head exam: Present: atraumatic, normal inspection - Neck Neck exam general surgery: Present: supple - Respiratory Respiratory exam: Present: decreased breath sounds. Absent: rales, respiratory distress, rhonchi, wheezes - Cardiovascular Cardiovascular exam: Present: RRR, +S1, +S2. Absent: tachycardia - GI/Abdominal GI/Abdominal exam: Present: normal bowel sounds, soft. Absent: rebound, rigid, tenderness - Extremities Exam Extremities exam: Absent: calf tenderness, pedal edema, tenderness - Back Exam Back exam: Absent: CVA tenderness (L), CVA tenderness (R) - Neurological Exam Neurological exam: Present: alert, altered, oriented X3 - Psychiatric Psychiatric exam: Present: depressed Additional comments: Sleepy - Skin Skin exam: Absent: rash Internal Medicine: Result - Labs CBC & Chem 7: 08/03/17 02:33 08/03/17 15:40 Labs: BMP 08/03/17 08/03/17 08/03/17 07:18 11:40 15:40 Sodium 122 L 125 L 124 L Potassium 4.4 3.8 Chloride 86 L 89 L Carbon Dioxide 20 L 27 BUN 116 H 105 H Creatinine 1.97 H 1.82 H Glucose 173 H 144 H Calcium 8.9 8.9 Cardiac Enzymes 08/03/17 08/03/17 Range/Units 07:18 11:40 Troponin I 0.04 H* 0.03 (< 0.04) ng/mL Urine 08/03/17 Range/Units 11:00 Urine Color Yellow (Yellow) Urine Clarity Clear (Clear) Urine pH 6.0 (5.0-8.0) pH Units Ur Specific [place] 1.016 (1.010-1.025) Urine Protein Negative (Neg-Trace) mg/dL Urine Glucose (UA) Normal (Normal) mg/dL - ABG Interpretation ABG results: PT/INR, D-dimer PT 90.3 Seconds (9.4-12.1) H* 08/03/17 02:55 - VTE Documentation of Mechanical Device: Intermittent pneumatic compression device Consult Discharge Plan - Plan Referrals: Garth Little DO [Primary Care Provider] -
[2017-08-03] MEDS ORDERED: Haloperidol Lactate 5 MG/ML VIAL IVP PRN (17:40)
[2017-08-03 19:10] LABS: Calcium 8.7 mg/dL (8.6-10.3); Magnesium 1.9 mg/dL (1.6-2.6); Phosphorous 3.5 mg/dL (2.7-4.5); Potassium 3.4 mEq/L (3.5-5.1)
[2017-08-04] MEDS: Ipratropium/Albuterol Neb 3 ML IH SCH ×8 (03:27→23:33)
[2017-08-04 05:02] LABS: Basophils % 0.3 %; Eosinophils # 0.1 K/mcL (0.0-0.6); Eosinophils % 0.8 %; Hematocrit 31.3 % (37.5-50.1); Hemoglobin 10.7 g/dL (12.9-16.9); Immature Granulocytes % 1.6 % (0-4); Lymphocytes # 0.8 K/mcL (0.6-4.6); Lymphocytes % 7.3 %; Mean Corpuscular HGB Conc 34.2 g/dL (31.6-35.5); Mean Corpuscular Hemoglobin 28.8 pg (28.0-33.3); Mean Corpuscular Volume 84.4 fL (83.0-100.0); Mean Platelet Volume 9.2 fL (9.4-12.4); Monocytes # 1.2 K/mcL (0.0-1.3); Monocytes % 10.7 %; Neutrophils # 9.2 K/mcL (1.6-8.9); Platelet Count 287 K/mcL (140-400); Red Blood Count 3.71 M/mcL (4.19-5.50); Red Cell Distribution Width 16.2 % (11.5-14.5); Segmented Neutrophils % 79.3 %
[2017-08-04 05:13] LABS: Activated Partial Thrombo Time 51.6 Seconds (26.0-36.0)
[2017-08-04 05:18] LABS: INR 7.2; Prothrombin Time 81.2 Seconds (9.4-12.1)
[2017-08-04 05:28] LABS: Alanine Aminotransferase 27 Units/L (7-52); Albumin 3.1 g/dL (3.5-5.7); Albumin/Globulin Ratio 0.9 (1.1-2.2); Alkaline Phosphatase 66 Units/L (34-104); Aspartate Amino Transferase 46 Units/L (13-39); BUN/Creatinine Ratio 61 (6-26); Bilirubin,Total 0.6 mg/dL (0.3-1.0); Blood Urea Nitrogen 72 mg/dL (8-23); Calcium 8.9 mg/dL (8.6-10.3); Carbon Dioxide 23 mEq/L (23-29); Chloride 98 mEq/L (98-107); Globulin 3.3 g/dL (2.4-3.5); Glucose 236 mg/dL (70-105); Magnesium 2.4 mg/dL (1.6-2.6); Osmolality,Calculated 301 (280-300); Phosphorous 3.1 mg/dL (2.7-4.5); Potassium 3.2 mEq/L (3.5-5.1); Sodium 131 mEq/L (136-145); Total Protein 6.4 g/dL (6.4-8.9); eGFR For African Americans > 60 (> 60); eGFR For Non-African Americans 59 (> 60)
[2017-08-04] MEDS: Tiotropium 18 MCG inhalation IH SCH (07:33)
[2017-08-04] MEDS: Insulin LISPRO 300 UNITS/3 ML VIAL SQ SCH ×4 (08:01→20:52)
[2017-08-04] MEDS ORDERED: Ondansetron 4 MG/2 ML VIAL ONE (08:08)
[2017-08-04] MEDS ORDERED: Pantoprazole 40 MG VIAL IVP ONE (08:08)
[2017-08-04] MEDS: Ondansetron 4 MG/2 ML VIAL IVP PRN ×2 (08:09→17:19)
[2017-08-04] MEDS: Pantoprazole 40 MG in 0.9 % Sodium Chloride Mini Bag 100 ML IVC SCH ×4 (08:19→22:22)
--- NOTE | 2017-08-04 08:19 | Nephrology Progress Note ---
Date of Encounter: 08/04/17 Time of Encounter: 08:16 - Assessment and Plan (1) VIRIDIANA (acute kidney injury) Current Visit: Yes Status: Acute Is improved, will sign off from renal standpoint, reconsult PRN. GFR 59 Scr 1.19 Uop 1650 yesterday and 600 today. (2) CHF (congestive heart failure) Current Visit: Yes Status: Chronic Qualifiers: Heart failure type: unspecified Heart failure chronicity: unspecified Qualified Code(s): I50.9 - Heart failure, unspecified (3) Hyponatremia Current Visit: Yes Status: Acute Resolved, 131. Subjective Principal diagnosis: AMS Interval history: Pt seen and examined. No CP, SOB. Is nauseated and had large amount of coffee ground emesis. Objective - Vital Signs Vital signs: Vital Signs Temp Pulse Resp BP Pulse Ox 08/04/17 07:34 17 93 08/04/17 04:48 98.3 F 08/04/17 04:00 100 12 104/61 97 08/04/17 03:29 16 97 08/04/17 00:28 98.1 F 08/04/17 00:00 126 20 96/55 99 08/03/17 23:13 18 98 08/03/17 20:00 105 22 91/54 100 08/03/17 19:58 18 90 08/03/17 19:55 98 F 08/03/17 18:00 110 16 117/57 97 08/03/17 16:00 89 18 110/43 96 08/03/17 15:21 16 96 08/03/17 14:00 97 16 117/62 97 08/03/17 12:00 89 15 117/106 95 08/03/17 11:47 97.8 F 08/03/17 11:38 16 96 08/03/17 10:00 85 12 96/59 95 Intake and Output 08/03/17 08/04/17 08/04/17 23:59 07:59 15:59 Intake Total 1000 / 1000 Output Total 1100 / 1100 600 / 600 Balance -100 / -100 -600 / -600 Intake: IV Fluids 1000 / 1000 0.9 % Sodium Chloride 1,000 ML 1000 / 1000 @ 75 mls/hr IVC .[id number] ERIKA Rx #:[id number] Output: Urine 1100 / 1100 600 / 600 Other: # Voids 1 Weight 104.5 kg Blood Glucose* 317 Patient Weight 08/04/17 23:59 Weight 104.5 kg - General Appearance General appearance: Present: chronically ill EENT: Present: ATNC, hearing intact, vision intact Neck: Present: supple Respiratory: Present: clear Cardiology: Present: regular rate, regular rhythm, normal S1, normal S2 Gastrointestinal: Present: normoactive bowel sounds, no tenderness, no guarding Integumentary: Present: no rash, warm and dry Neurologic: Present: alert and oriented x3, disoriented (Disoriented at times.) Psychiatric: Present: mood/affect appropriate, cooperative - Lab 08/04/17 04:30 08/04/17 07:55 Most recent lab results Calcium 8.9 mg/dL (8.6-10.3) 08/04/17 04:30 Phosphorus 3.1 mg/dL (2.7-4.5) 08/04/17 04:30 Magnesium 2.4 mg/dL (1.6-2.6) 08/04/17 04:30 Urine Creatinine 36 mg/dL 08/03/17 11:00 Urine Sodium < 10.0 mEq/L 08/03/17 11:00 Urine Total Protein 11 mg/dL (1-14) 08/03/17 11:00 - VTE Documentation of Mechanical Device: Intermittent pneumatic compression device Consult Discharge Plan - Plan Referrals: Garth Little DO [Primary Care Provider] -
[2017-08-04] MEDS: Aspirin 81 MG TAB.CHEW PO SCH (08:25)
--- NOTE | 2017-08-04 08:30 | Internal Med Progress Note ---
Date of Encounter: 08/04/17 Time of Encounter: 08:15 - Assessment and plan (1) Acute upper GI bleed Current Visit: Yes Status: Acute Assessment and plan: with hematemesis Hb dropped down to 10.7 cont close monitoring no need of PRBC for now Protonix 80mg + gtt started now GI consulted No need of NG tube at this point Vit K IV 10mg + FFP 2 U ordered stat Pt does need higher critical level of care. so will transfer him to ICU I spent 45 minutes critical care time on this pt (2) Hyponatremia Current Visit: Yes Status: Acute Assessment and plan: Severe hyponatremia Na on admission 118 Morning Na -131 Corrected slowly Nephro is on board (3) VIRIDIANA (acute kidney injury) Current Visit: Yes Status: Acute Assessment and plan: Due to dehydration improving cont genlte IVF avoid nephro toxic meds (4) Elevated troponin Current Visit: Yes Status: Acute Assessment and plan: Trops on admission 0.77.. trended down No CP Resumed home meds - ASA, Statin and BB Will obtain recent 2 D Echo and Cardiac work up records from his primary card office Card is on board (5) Acute metabolic encephalopathy Current Visit: Yes Status: Acute Assessment and plan: His delirium might be due to acute matabolic encephaloapthy as well as with dementia too cont close monitoring for now improving slowly placed him on Haldol PRN (6) Leukocytosis Current Visit: Yes Status: Acute Assessment and plan: Reactive no signs of inf cont close monitoring no need of abx Qualifiers: Leukocytosis type: unspecified Qualified Code(s): D72.829 - Elevated white blood cell count, unspecified (7) Elevated INR Current Visit: Yes Status: Acute Assessment and plan: patient has INR of 8.0 on admission most likely due to nutritional def / dehydration / VIRIDIANA Tday @ 7.2 Since he just had hematemesis and Hb dropped down to 10.7 gave him 10mg IV Vit K Also ordered 2 U FFP cont holding Coumadin check INR closely (8) Diabetes mellitus with neuropathy Current Visit: Yes Status: Acute Assessment and plan: ISS and ADA diet when pt is fully awake ACHS accuchecks Qualifiers: Diabetes mellitus type: type 2 Diabetes mellitus detention insulin use: unspecified detention insulin use status Qualified Code(s): E11.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, unspecified (9) High ankle sprain of right lower extremity Current Visit: Yes Status: Acute Assessment and plan: previous worked up a gonzalez, no fracture - as per family however X ray of ankle here showed fractures of the medial malleolus and distal fibula Gunite Nozzle Operator consulted - appreciate your help Qualifiers: Qualified Code(s): S93.431A - Sprain of tibiofibular ligament of right ankle , initial encounter (10) Hypothyroid Current Visit: Yes Status: Acute Assessment and plan: continue home Rx Qualifiers: Qualified Code(s): E03.9 - Hypothyroidism, unspecified (11) Afib Current Visit: Yes Status: Acute Assessment and plan: currently rate fairly controlled Switched to IV Lopressor holding coumadin Qualifiers: Atrial fibrillation type: persistent Qualified Code(s): I48.1 - Persistent atrial fibrillation (12) COPD (chronic obstructive pulmonary disease) Current Visit: Yes Status: Acute Assessment and plan: history of COPD, patient does not clinically have COPD exacerbation symptoms. Will continue to monitor closely Qualifiers: Qualified Code(s): J44.9 - Chronic obstructive pulmonary disease, unspecified (13) CHF (congestive heart failure) Current Visit: Yes Status: Chronic Assessment and plan: Mostly diastoic CHF Not in exacerbation resumed home meds except diuretics Qualifiers: Heart failure type: unspecified Heart failure chronicity: unspecified Qualified Code(s): I50.9 - Heart failure, unspecified (14) GERD (gastroesophageal reflux disease) Current Visit: Yes Status: Acute Assessment and plan: continue home rx. Qualifiers: Qualified Code(s): K21.9 - Gastro-esophageal reflux disease without esophagitis (15) Hypertension Current Visit: Yes Status: Acute Assessment and plan: currently stable, continue home rx Qualifiers: Qualified Code(s): I10 - Essential (primary) hypertension (16) Goals of care, counseling/discussion Current Visit: Yes Status: Acute Assessment and plan: is PoA. [facility] [phone]. has PoA and DNR/DNI/CCA paper work. (17) Fall Current Visit: Yes Status: Acute Assessment and plan: un witness fall. Patient is high risk due to INR of 8.0, confusion and PMHx. CT of head - no acute ICH Fall precautions Qualifiers: Qualified Code(s): W19.XXXA - Unspecified fall, initial encounter (18) DVT prophylaxis Current Visit: Yes Status: Acute Assessment and plan: EPCD. holding coumadin due to INR ~8 - Time Spent With Patient Total time spent is greater than 50% in coordination of care (as documented) at patient's floor/unit and/or counseling patient: - Subjective Interval history: Mr. Mack is a 82 year old male with PMHx significant for COPD, afib on coumadin, diastolic CHF, DMII, HTN, HLD CAD s/p remote PCI who presented to the ED with weakness and confusion. He was found to be hyponatremic with Na 118 and also have supra therapeutic INR. He does have frequent falls at home, recently had Rt ankle sprain 6 days ago had X ray taken at [facility] which were negative for fx. He also had UTI and Sepsis 3-4weeks ago initially admitted at [facility], later he was transferred to [place] for further care and d/t reported urinary catheter issues. He was admmitted here for acute hyponatremmia, VIRIDIANA, elevated Troponin and supra therapeutic INR. Pt is more alert, awake and oriented today. Denied any CP / SOB. he just had coffee ground emesis x 1 this morning. No abd pain. No BM since y/d . - Constitutional Vitals: Temp Pulse Resp BP Pulse Ox 98.3 F 100 17 104/61 93 08/04/17 04:48 08/04/17 04:00 08/04/17 07:34 08/04/17 04:00 08/04/17 07:34 General appearance: Present: cooperative, A&O X 3, obese, answers questions appropriately - Head Head exam: Present: atraumatic, normal inspection - Neck Neck exam general surgery: Present: supple - Respiratory Respiratory exam: Present: decreased breath sounds, wheezes (mild). Absent: rales, respiratory distress, rhonchi - Cardiovascular Cardiovascular exam: Present: irregular rhythm, +S1, +S2. Absent: tachycardia - GI/Abdominal GI/Abdominal exam: Present: normal bowel sounds, soft. Absent: rebound, rigid, tenderness - Extremities Exam Extremities exam: Absent: calf tenderness, pedal edema, tenderness - Back Exam Back exam: Absent: CVA tenderness (L), CVA tenderness (R) - Neurological Exam Neurological exam: Present: alert, oriented X3 - Psychiatric Psychiatric exam: Present: anxious - Skin Skin exam: Absent: rash Internal Medicine: Result - Labs CBC & Chem 7: 08/04/17 04:30 08/04/17 04:30 Labs: Short CBC 08/04/17 Range/Units 04:30 WBC 11.5 H (4.3-11.1) K/mcL Hgb 10.7 L (12.9-16.9) g/dL Hct 31.3 L (37.5-50.1) % Plt Count 287 (140-400) K/mcL Neutrophils # 9.2 H (1.6-8.9) K/mcL BMP 08/03/17 08/03/17 08/03/17 11:40 15:40 18:35 Sodium 125 L 124 L 124 L Potassium 3.8 3.4 L Chloride 89 L 91 L Carbon Dioxide 27 23 BUN 105 H 91 H Creatinine 1.82 H 1.54 H Glucose 144 H 308 H Calcium 8.9 8.7 08/03/17 08/04/17 08/04/17 20:00 00:00 04:30 Sodium 125 L 128 L 131 L Potassium 3.2 L Chloride 98 Carbon Dioxide 23 BUN 72 H Creatinine 1.19 Glucose 236 H Calcium 8.9 Cardiac Enzymes 08/03/17 08/03/17 Range/Units 07:18 11:40 Troponin I 0.04 H* 0.03 (< 0.04) ng/mL Liver Function 08/04/17 Range/Units 04:30 Total Bilirubin 0.6 (0.3-1.0) mg/dL AST 46 H (13-39) Units/L ALT 27 (7-52) Units/L Alkaline Phosphatase 66 (34-104) Units/L Albumin 3.1 L (3.5-5.7) g/dL Urine 08/03/17 Range/Units 11:00 Urine Color Yellow (Yellow) Urine Clarity Clear (Clear) Urine pH 6.0 (5.0-8.0) pH Units Ur Specific [place] 1.016 (1.010-1.025) Urine Protein Negative (Neg-Trace) mg/dL Urine Glucose (UA) Normal (Normal) mg/dL - ABG Interpretation ABG results: PT/INR, D-dimer PT 81.2 Seconds (9.4-12.1) H* 08/04/17 04:30 - Impressions Impressions Ankle X-Ray 08/03/17 15:07 IMPRESSION: Fractures of the medial malleolus and distal fibula. No dislocation. No fractures are seen in the right foot. D/ / 08/03/2017 17:43:26 Tenzin Draper MD / Yesenia Iverson Interpreting Provider: Tenzin Draper MD Foot X-Ray 08/03/17 15:07 IMPRESSION: Fractures of the medial malleolus and distal fibula. No dislocation. No fractures are seen in the right foot. D/ / 08/03/2017 17:43:26 Tenzin Draper MD / Yesenia Iverson Interpreting Provider: Tenzin Draper MD - VTE Documentation of Mechanical Device: Intermittent pneumatic compression device Consult Discharge Plan - Plan Referrals: Garth Little DO [Primary Care Provider] -
[2017-08-04] MEDS ORDERED: Aminoglycoside Consult 1 EACH MC ONE (09:03)
[2017-08-04] MEDS: 0.9 % Sodium Chloride w KCl 20 MEQ/1,000 ML MLS IVC SCH ×2 (09:55→22:21)
--- NOTE | 2017-08-04 10:13 | Cardiology Progress Note ---
Date of Encounter: 08/04/17 Time of Encounter: 10:10 Assessment and Plan (1) Elevated troponin I level Current Visit: Yes Status: Acute Continue to monitor, TTE pending to evaluate EF/WMA (2) Afib Current Visit: Yes Status: Acute Reported longstanding hx of atrial fibrillation. INR supratherapeutic upon admission, 8.0. Recent hospitalization with sepsis, d/ c'ed on po antibiotics, unclear when INR last checked as outpt. Recommend resuming coumadin when INR falls below 3.0. Qualifiers: Atrial fibrillation type: persistent Qualified Code(s): I48.1 - Persistent atrial fibrillation (3) CHF (congestive heart failure) Current Visit: Yes Status: Chronic Reported hx of CHF. Mild volume overload on exam, also with VIRIDIANA. Per old records (ecw), EF 55% with normal RV function in 2016. Suspect hx of diastolic CHF. Volume mgmt per Nephrology. Continue betablocker. Repeat TTE Qualifiers: Heart failure type: unspecified Heart failure chronicity: unspecified Qualified Code(s): I50.9 - Heart failure, unspecified (4) Hypertension Current Visit: Yes Status: Acute continue HTN meds Qualifiers: Qualified Code(s): I10 - Essential (primary) hypertension (5) Acute upper GI bleed Current Visit: Yes Status: Acute likely secondary to coagulopathy, continue to monitor HH, agree with PPI Discussion w patient/family: The assessment and plan as outlined above was discussed with the patient and/or family members who expressed understanding and agreement. All questions were answered. Thank you for involving us in the care of your patient. Please call with any questions. Subjective Principal diagnosis: AMS Interval history: Patient has no complaints of chest pain, states he feels better when left alone. No acute events overnight. Denies dyspnea palpitations or syncope. Objective Vital Signs, Last 4 Hours Temp Pulse Resp BP Pulse Ox 08/04/17 09:00 106 20 114/67 97 08/04/17 08:54 97.7 F 08/04/17 08:00 106 16 125/65 95 08/04/17 07:34 17 93 General: Conversant HEENT: Atraumatic Neck: No JVD Cardiac: Reg Rate and Rhythm Lungs: Normal Breath Sounds Neuro: No focal deficits noted, Other (lthargic) Abdomen: Soft Skin: No rashes noted on visualized skin Musculoskeletal: No Chest Wall Tenderness Extremities: No Edema Results 08/04/17 04:30 08/04/17 07:55 Lab Results 08/03/17 08/03/17 08/03/17 09:45 11:40 15:40 WBC Hgb Hct Plt Count INR APTT Sodium 125 L 124 L Potassium 3.8 Chloride 89 L Carbon Dioxide 27 BUN 105 H Creatinine 1.82 H Glucose 144 H Calcium 8.9 Magnesium Total Bilirubin AST ALT Alkaline Phosphatase Troponin I 0.03 B-Natriuretic Peptide TSH 0.104 L 08/03/17 08/03/17 08/04/17 18:35 20:00 00:00 WBC Hgb Hct Plt Count INR APTT Sodium 124 L 125 L 128 L Potassium 3.4 L Chloride 91 L Carbon Dioxide 23 BUN 91 H Creatinine 1.54 H Glucose 308 H Calcium 8.7 Magnesium 1.9 Total Bilirubin AST ALT Alkaline Phosphatase Troponin I B-Natriuretic Peptide TSH 08/04/17 08/04/17 08/04/17 04:30 04:30 04:30 WBC 11.5 H Hgb 10.7 L Hct 31.3 L Plt Count 287 INR 7.2 H* APTT 51.6 H Sodium 131 L Potassium 3.2 L Chloride 98 Carbon Dioxide 23 BUN 72 H Creatinine 1.19 Glucose 236 H Calcium 8.9 Magnesium 2.4 Total Bilirubin 0.6 AST 46 H ALT 27 Alkaline Phosphatase 66 Troponin I B-Natriuretic Peptide TSH 08/04/17 08/04/17 04:30 07:55 WBC Hgb Hct Plt Count INR APTT Sodium 133 L Potassium Chloride Carbon Dioxide BUN Creatinine Glucose Calcium Magnesium Total Bilirubin AST ALT Alkaline Phosphatase Troponin I B-Natriuretic Peptide 149 H TSH - VTE Documentation of Mechanical Device: Intermittent pneumatic compression device Consult Discharge Plan - Plan Referrals: Garth Little DO [Primary Care Provider] -
[2017-08-04 10:57] LABS: Acinetobacter baumannii by PCR Not Detected (Not Detect); Candida albicans by PCR Not Detected (Not Detect); Candida glabrata by PCR Not Detected (Not Detect); Candida krusei by PCR Not Detected (Not Detect); Candida parapsilosis by PCR Not Detected (Not Detect); Candida tropicalis by PCR Not Detected (Not Detect); Enterococcus by PCR Not Detected (Not Detect); Escherichia coli by PCR Not Detected (Not Detect); Klebsiella oxytoca by PCR Not Detected (Not Detect); Klebsiella pneumoniae by PCR Not Detected (Not Detect); Pseudomonas aeruginosa by PCR Not Detected (Not Detect); Serratia marcescens by PCR Not Detected (Not Detect); Staphylococcus aureus by PCR Not Detected (Not Detect); Streptococcus agalactiae(B)PCR Not Detected (Not Detect); Streptococcus by PCR Not Detected (Not Detect); Streptococcus pneumoniae PCR Not Detected (Not Detect); Streptococcus pyogenes (A) PCR Not Detected (Not Detect); mecA Methicillin-Resist Gene ***DETECTED*** (Not Detect)
[2017-08-04] MEDS ORDERED: *HR* Promethazine 25 MG/ML VIAL IVP ONE (11:00)
[2017-08-04] MEDS: *HR* Metoprolol 5 MG/5 ML VIAL IVP SCH ×2 (11:43→17:34)
[2017-08-04] MEDS ORDERED: 0.9 % Sodium Chloride 250 ML ONE (12:56)
--- NOTE | 2017-08-04 13:19 | Podiatry Progress Note ---
Date of Encounter: 08/04/17 Time of Encounter: 13:00 - Assessment and Plan (1) Traumatic ecchymosis of right ankle Current Visit: Yes Status: Acute Ecchymosis and edema to right ankle with tenderness upon palpation secondary to fall. X-rays were ordered of the right foot and ankle showing fractures of the medial malleolus and distal fibula. No fractures or dislocations to the foot. Plan: Remain strict non weight bearing to the RLE. Orders written for compression wrap to the RLE (cast padding and mildred wrap from toes to tibia) Placed in a tall cam boot. Follow up in Podiatry clinic one week after discharge from the hospital with Dr. King. At that time we will obtain repeat x-rays. Qualifiers: Encounter type: initial encounter Qualified Code(s): S90.01XA - Contusion of right ankle, initial encounter (2) Diabetes mellitus with neuropathy Current Visit: Yes Status: Acute Qualifiers: Diabetes mellitus type: type 2 Diabetes mellitus long goods drier insulin use: unspecified care home insulin use status Qualified Code(s): E11.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, unspecified (3) Bimalleolar fracture of right ankle Current Visit: Yes Status: Acute Qualifiers: Encounter type: initial encounter Fracture type: closed Qualified Code(s) : S82.841A - Displaced bimalleolar fracture of right lower leg, initial encounter for closed fracture Subjective Principal diagnosis: AMS Interval history: Patient is lying in bed with cam boot on to RLE. Patient is much more awake and alert today. Patient was evaluated yesterday for a right ankle injury. X rays were ordered of the right foot and ankle showing fractures of the medial malleolus and distal fibula. Patient denies any right ankle pain currently. Objective - Vital Signs Vital Signs: Vital Signs Temp Pulse Resp BP Pulse Ox 08/04/17 11:51 97.3 F L 08/04/17 11:27 18 97 08/04/17 10:00 92 18 130/94 97 08/04/17 09:00 106 20 114/67 97 08/04/17 08:54 97.7 F 08/04/17 08:00 106 16 125/65 95 08/04/17 07:34 17 93 08/04/17 04:48 98.3 F 08/04/17 04:00 100 12 104/61 97 08/04/17 03:29 16 97 08/04/17 00:28 98.1 F 08/04/17 00:00 126 20 96/55 99 08/03/17 23:13 18 98 08/03/17 20:00 105 22 91/54 100 08/03/17 19:58 18 90 08/03/17 19:55 98 F 08/03/17 18:00 110 16 117/57 97 08/03/17 16:00 89 18 110/43 96 08/03/17 15:21 16 96 08/03/17 14:00 97 16 117/62 97 Intake and Output 08/03/17 08/04/17 08/04/17 23:59 07:59 15:59 Intake Total 1000 / 1000 100 / 100 Output Total 1100 / 1100 600 / 600 200 / 200 Balance -100 / -100 -600 / -600 -100 / -100 Intake: IV Fluids 1000 / 1000 100 / 100 0.9 % Sodium Chloride 1,000 ML 1000 / 1000 @ 75 mls/hr IVC .[id number] ERIKA Rx #:[id number] Protonix 40 MG In 0.9 % Sodium 100 / 100 Chloride (Mini-Bag +) 100 ML @ 20 mls/hr IVC .Q5H ERIKA Rx#: [id number] Output: Urine 1100 / 1100 600 / 600 Emesis 200 / 200 Other: # Voids 1 Weight 104.5 kg Blood Glucose* 317 179 Patient Weight 08/04/17 23:59 Weight 104.5 kg - Exam Exam: General: A&O x3, calm and pleasant. Musckuloskeletal: Cast padding with mildred wrap intact to the RLE with tall cam boot. - Lab Result Diagrams: 08/04/17 04:30 08/04/17 07:55 Labs: Abnormal lab results WBC 11.5 K/mcL (4.3-11.1) H 08/04/17 04:30 RBC 3.71 M/mcL (4.19-5.50) L 08/04/17 04:30 Hgb 10.7 g/dL (12.9-16.9) L 08/04/17 04:30 Hct 31.3 % (37.5-50.1) L 08/04/17 04:30 RDW 16.2 % (11.5-14.5) H 08/04/17 04:30 MPV 9.2 fL (9.4-12.4) L 08/04/17 04:30 Neutrophils # 9.2 K/mcL (1.6-8.9) H 08/04/17 04:30 PT 81.2 Seconds (9.4-12.1) H* 08/04/17 04:30 INR 7.2 H* 08/04/17 04:30 APTT 51.6 Seconds (26.0-36.0) H 08/04/17 04:30 Sodium 133 mEq/L (136-145) L 08/04/17 07:55 Potassium 3.2 mEq/L (3.5-5.1) L 08/04/17 04:30 BUN 72 mg/dL (8-23) H 08/04/17 04:30 Est GFR (Non-Af Amer) 59 (> 60) L 08/04/17 04:30 BUN/Creatinine Ratio 61 (6-26) H 08/04/17 04:30 Glucose 236 mg/dL (70-105) H 08/04/17 04:30 POC Glucose 179 mg/dL (70-99) H 08/04/17 11:16 Calculated Osmolality 301 (280-300) H 08/04/17 04:30 Uric Acid 9.6 mg/dL (2.3-7.6) H 08/03/17 09:45 AST 46 Units/L (13-39) H 08/04/17 04:30 B-Natriuretic Peptide 149 pg/mL (Less than 100) H 08/04/17 04:30 Albumin 3.1 g/dL (3.5-5.7) L 08/04/17 04:30 Albumin/Globulin Ratio 0.9 (1.1-2.2) L 08/04/17 04:30 TSH 0.104 mcIU/mL (0.340-5.600) L 08/03/17 09:45 Urine Blood Trace (Negative) H 08/03/17 11:00 Ur Leukocyte Esterase Small (Negative) H 08/03/17 11:00 Ur Squamous Epith Cells Moderate per lpf (None-Few) H 08/03/17 11:00 Ur Culture Indicated? YES (NO) A 08/03/17 11:00 Protein/Creatinin Ratio 0.31 mg/mg (0.00-0.20) H 08/03/17 11:00 Staphylococcus sp PCR DETECTED (Not Detect) A 08/03/17 07:18 mecA-Methicil Res Gene DETECTED (Not Detect) A 08/03/17 07:18 Microbiology, Last 48 Hours 08/03/17 07:18 Blood Culture - Preliminary Peripheral Venipuncture Gram Positive Cocci - VTE Documentation of Mechanical Device: Intermittent pneumatic compression device Consult Discharge Plan - Plan Referrals: Garth Little DO [Primary Care Provider] -
[2017-08-04 15:19] LABS: INR 2.1; Prothrombin Time 23.3 Seconds (9.4-12.1)
--- NOTE | 2017-08-04 15:43 | Gastroenterology Consult Note ---
<Mandie Doll - Last Filed: 08/04/17 15:40> Date of Encounter: 08/04/17 Time of Encounter: 10:45 - Assessment and plan (1) Acute upper GI bleed Current Visit: Yes Status: Acute Assessment and plan: 82 year old male who presents after a fall. He was found to have INR 8 and had hematemesis. Hgb remains at 10.7 INR is still elevated. He reports recent scopes at [facility], will send for results. Will monitor H&H, transfuse as needed. If pt develops active bleeding will need endoscopic work up. - Time Spent With Patient Total time spent is greater than 50% in coordination of care (as documented) at patient's floor/unit and/or counseling patient: GI History of Present Illness - Data of Consult Patient: new to practice Consult date: 08/04/17 Requesting Physician: Myke Cobb - Consult Narrative Reason for consult: hematemesis, anemia History of present illness: Mr. Mack is a 82 year old male w/ pmh of recent UTI sepsis, recent "sprained ankles", COPD, DM on insulin, hypothyroid, HTN, afib, CHF, GERD presented to [facility] after experiencing a fall and confusion. Patient late last night got up to have a bowel movement in the restroom, after he finished he got up and on his way back experienced a fall. Patient's was unable to get patient up, and she called squad to get patient. Patient was brought to [facility] and found to have an elevated trops and transferred to [facility]. Fall was unwitnessed, and by the time patient arrived at [facility] patient was confused and disoriented according to ED notes. Patient denies chest pain, sob, abd pain, diarrhea or constipation. He does complain of nausea and had an episode of hematemesis and hgb dropped from 11.6 to 10.7. INR was 8.0 on admission and is now 7.2. procedures: Santana per pt "couple days ago" nsaids: asa 81 mg anticoagulants: coumadin Past Med Surg Social Fam HX - Past Medical History Medical history: atrial fibrillation, COPD, coronary artery disease, diabetes, hyperlipidemia, hypertension Psychiatric history: no psych history - Past Surgical History Surgical History: cancer surgery, prostatectomy - Social History Smoking Status: Former smoker Alcohol use: none Drug use: none Review of Systems: GI: as per [facility] GENERAL: denies fever, has some chills EYES: denies yellow discoloration ENT: denies pain with swallowing or difficulty swallowing CARDIO: denies chest pain, palpitations RESP: Shortness of breath with exertion : denies change in color of urine NEURO: weakness HEME: Denies any bruising MS: denies joint pain, joint swelling or back pain. DERM: denies rash or itching PSYCH: Denies history of anxiety or depression - Constitutional Vitals: Temp Pulse Resp BP Pulse Ox 98.2 F 105 20 105/82 97 08/04/17 13:48 08/04/17 14:00 08/04/17 14:00 08/04/17 14:00 08/04/17 14:00 Exam: CONSTITUTIONAL:~alert, no acute distress.~HEAD:~normocephalic.~EYES:~no jaundice.~NECK:~no obvious swelling.~HEART:~regular rate and rhythm, no murmurs. ~LUNGS:~bilateral fair air entry.~ABDOMEN:~non distended, soft, diffuse mild tenderness, no masses palpable, no organomegaly.~RECTAL EXAM:~Deferred.~ EXTREMITIES:~no clubbing, cyanosis or edema.~SKIN:~pallor noted, no stigmata of chronic liver disease.~NEUROLOGIC:~no obvious focal defect.~~~~ Results - Labs CBC & Chem 7: 08/04/17 04:30 08/04/17 07:55 Labs: Last Result Calcium 8.9 mg/dL (8.6-10.3) 08/04/17 04:30 Troponin I 0.03 ng/mL (< 0.04) 08/03/17 11:40 Entire Visit Hgb 10.7 g/dL (12.9-16.9) L 08/04/17 04:30 Hct 31.3 % (37.5-50.1) L 08/04/17 04:30 PT 23.3 Seconds (9.4-12.1) H D 08/04/17 14:20 Total Bilirubin 0.6 mg/dL (0.3-1.0) 08/04/17 04:30 AST 46 Units/L (13-39) H 08/04/17 04:30 ALT 27 Units/L (7-52) 08/04/17 04:30 E. coli (PCR) Not Detected (Not Detect) 08/03/17 07:18 - ABG ABG results: PT/INR, D-dimer PT 23.3 Seconds (9.4-12.1) H D 08/04/17 14:20 - Impressions Impressions Echocardiogram 08/03/17 12:27 Impressions: Technically difficult study due to poor windows and patient would not turn on left side for images. LVEF 60-65%. Not all LV segments were well visualized, but overall LVEF appears normal. Normal LV chamber size. Indeterminate diastolic function. Normal right ventricular structure and function. Aortic valve not well visualized. Mild aortic stenosis by Doppler. Mean gradient 16 mmHg. Mild pulmonary hypertension. Estimated RVSP 42 mmHg. Findings: Study Quality * Technically sub-optimal due to poor echocardiographic windows. ECG Findings * Atrial fibrillation. Left Ventricle * LVEF 60-65%. Not all LV segments were well visualized, but overall LVEF appears normal. * Normal LV chamber size. * Indeterminate diastolic function. Right Ventricle * Normal right ventricular structure and function. Left Atrium * Moderately dilated left atrium. Right Atrium * Moderately dilated right atrium. Aortic Valve * Aortic valve not well visualized. * Grossly, the aortic valve appears calcified. * No aortic regurgitation. * Mild aortic stenosis by Doppler. Mean gradient 16 mmHg. Mitral Valve * Normal mitral valve structure and function. * No mitral stenosis. * No mitral regurgitation. Tricuspid Valve * Normal tricuspid valve structure and function. * Trace tricuspid regurgitation. * Mild pulmonary hypertension. Estimated RVSP 42 mmHg. Pulmonic Valve * Pulmonic valve not well visualized. Aorta * Normally sized aortic root. Pericardium * There is a trivial pericardial effusion present. IVC * Normal IVC dimensions and inspiratory collapse. Pulmonary Artery * Pulmonary artery not well visualized. Ankle X-Ray 08/03/17 15:07 IMPRESSION: Fractures of the medial malleolus and distal fibula. No dislocation. No fractures are seen in the right foot. D/ / 08/03/2017 17:43:26 Tenzin Draper MD / Yesenia Iverson Interpreting Provider: Tenzin Draper MD Foot X-Ray 08/03/17 15:07 IMPRESSION: Fractures of the medial malleolus and distal fibula. No dislocation. No fractures are seen in the right foot. D/ / 08/03/2017 17:43:26 Tenzin Draper MD / Yesenia Iverson Interpreting Provider: Tenzin Draper MD Consult Discharge Plan - Plan Referrals: Garth Little DO [Primary Care Provider] - <AidanBarrera - Last Filed: 08/04/17 16:37> Date of Encounter: 08/04/17 Time of Encounter: 15:00 - Time Spent With Patient Total time spent is greater than 50% in coordination of care (as documented) at patient's floor/unit and/or counseling patient: GI History of Present Illness - Data of Consult Requesting Physician: Myke Cobb - Consult Narrative History of present illness: Mr. Mack is a 82 year old male - Constitutional Vitals: Temp Pulse Resp BP Pulse Ox 98.2 F 105 20 105/82 97 08/04/17 13:48 08/04/17 14:00 08/04/17 14:00 08/04/17 14:00 08/04/17 14:00 Results - Labs CBC & Chem 7: 08/04/17 04:30 08/04/17 07:55 Labs: Last Result Calcium 8.9 mg/dL (8.6-10.3) 08/04/17 04:30 Troponin I 0.03 ng/mL (< 0.04) 08/03/17 11:40 Entire Visit Hgb 10.7 g/dL (12.9-16.9) L 08/04/17 04:30 Hct 31.3 % (37.5-50.1) L 08/04/17 04:30 PT 23.3 Seconds (9.4-12.1) H D 08/04/17 14:20 Total Bilirubin 0.6 mg/dL (0.3-1.0) 08/04/17 04:30 AST 46 Units/L (13-39) H 08/04/17 04:30 ALT 27 Units/L (7-52) 08/04/17 04:30 E. coli (PCR) Not Detected (Not Detect) 08/03/17 07:18 - ABG ABG results: PT/INR, D-dimer PT 23.3 Seconds (9.4-12.1) H D 08/04/17 14:20 - Impressions Impressions Echocardiogram 08/03/17 12:27 Impressions: Technically difficult study due to poor windows and patient would not turn on left side for images. LVEF 60-65%. Not all LV segments were well visualized, but overall LVEF appears normal. Normal LV chamber size. Indeterminate diastolic function. Normal right ventricular structure and function. Aortic valve not well visualized. Mild aortic stenosis by Doppler. Mean gradient 16 mmHg. Mild pulmonary hypertension. Estimated RVSP 42 mmHg. Findings: Study Quality * Technically sub-optimal due to poor echocardiographic windows. ECG Findings * Atrial fibrillation. Left Ventricle * LVEF 60-65%. Not all LV segments were well visualized, but overall LVEF appears normal. * Normal LV chamber size. * Indeterminate diastolic function. Right Ventricle * Normal right ventricular structure and function. Left Atrium * Moderately dilated left atrium. Right Atrium * Moderately dilated right atrium. Aortic Valve * Aortic valve not well visualized. * Grossly, the aortic valve appears calcified. * No aortic regurgitation. * Mild aortic stenosis by Doppler. Mean gradient 16 mmHg. Mitral Valve * Normal mitral valve structure and function. * No mitral stenosis. * No mitral regurgitation. Tricuspid Valve * Normal tricuspid valve structure and function. * Trace tricuspid regurgitation. * Mild pulmonary hypertension. Estimated RVSP 42 mmHg. Pulmonic Valve * Pulmonic valve not well visualized. Aorta * Normally sized aortic root. Pericardium * There is a trivial pericardial effusion present. IVC * Normal IVC dimensions and inspiratory collapse. Pulmonary Artery * Pulmonary artery not well visualized. Ankle X-Ray 08/03/17 15:07 IMPRESSION: Fractures of the medial malleolus and distal fibula. No dislocation. No fractures are seen in the right foot. D/ / 08/03/2017 17:43:26 Tenzin Draper MD / Yesenia Iverson Interpreting Provider: Tenzin Draper MD Foot X-Ray 08/03/17 15:07 IMPRESSION: Fractures of the medial malleolus and distal fibula. No dislocation. No fractures are seen in the right foot. D/ / 08/03/2017 17:43:26 Tenzin Draper MD / Yesenia Iverson Interpreting Provider: Tenzin Draper MD - Attending Attestation I have personally performed a face to face evaluation on this patient. I have reviewed and agree with the care plan. History and Exam by me shows: Patient seen. Patient with supratherapeutic INR with a coffee-ground emesis and drop in his hemoglobin. INR is still more than 2. Recommendation: Follow H/H, correct Coagulopathy, if continued to have a drop in his hemoglobin then we will consider EGD.
[2017-08-04] MEDS ORDERED: *HR* FentaNYL (PF) 100 MCG/2 ML VIAL IVP PRN (18:28)
[2017-08-04] MEDS ORDERED: *HR* Promethazine 25 MG/ML VIAL IVP PRN (18:29)
[2017-08-04 18:36] LABS: Basophils % 0.1 %; Eosinophils # 0.1 K/mcL (0.0-0.6); Eosinophils % 1.3 %; Hematocrit 28.2 % (37.5-50.1); Hemoglobin 9.9 g/dL (12.9-16.9); Immature Granulocytes % 1.4 % (0-4); Lymphocytes # 0.8 K/mcL (0.6-4.6); Lymphocytes % 8.4 %; Mean Corpuscular HGB Conc 35.1 g/dL (31.6-35.5); Mean Corpuscular Hemoglobin 30.1 pg (28.0-33.3); Mean Corpuscular Volume 85.7 fL (83.0-100.0); Mean Platelet Volume 9.1 fL (9.4-12.4); Monocytes # 1.2 K/mcL (0.0-1.3); Monocytes % 12.4 %; Neutrophils # 7.5 K/mcL (1.6-8.9); Platelet Count 255 K/mcL (140-400); Red Blood Count 3.29 M/mcL (4.19-5.50); Red Cell Distribution Width 16.3 % (11.5-14.5); Segmented Neutrophils % 76.4 %
[2017-08-04 18:40] LABS: BUN/Creatinine Ratio 50 (6-26); Blood Urea Nitrogen 51 mg/dL (8-23); Calcium 9.1 mg/dL (8.6-10.3); Carbon Dioxide 26 mEq/L (23-29); Chloride 105 mEq/L (98-107); Glucose 181 mg/dL (70-105); Magnesium 2.5 mg/dL (1.6-2.6); Osmolality,Calculated 304 (280-300); Potassium 3.3 mEq/L (3.5-5.1); Sodium 138 mEq/L (136-145); eGFR For African Americans > 60 (> 60); eGFR For Non-African Americans > 60 (> 60)
--- NOTE | 2017-08-04 20:28 | Electrocardiograph Report ---
[address] [place], [place] [address] Test Date: 2017-08-03 Pat Name: [facility] Department: 109 Room: 10 Gender: M Operating Room Registered Nurse: : [id number] Requested By: Rad Mckeon Order Number: [id number] Reading MD: Jordon Pozo Measurements Intervals [place] Rate: 103 P: [place]: 0 QRS: 41 QRSD: 97 T: 27 QT: 344 QTc: 404 Interpretive Statements ATRIAL FIBRILLATION WITH RAPID VENTRICULAR RESPONSE LOW QRS VOLTAGE IN EXTREMITY LEADS Electronically Signed On 08-04-2017 20:27:08 EDT by Jordon Pozo
[2017-08-05] MEDS: *HR* Metoprolol 5 MG/5 ML VIAL IVP SCH ×2 (00:42→06:12)
[2017-08-05] MEDS: Pantoprazole 40 MG in 0.9 % Sodium Chloride Mini Bag 100 ML IVC SCH ×5 (02:30→23:38)
[2017-08-05] MEDS: Ipratropium/Albuterol Neb 3 ML IH SCH ×5 (03:18→20:27)
[2017-08-05 05:10] LABS: Basophils % 0.2 %; Eosinophils # 0.2 K/mcL (0.0-0.6); Eosinophils % 1.7 %; Hematocrit 29.3 % (37.5-50.1); Hemoglobin 9.7 g/dL (12.9-16.9); Immature Granulocytes % 1.3 % (0-4); Lymphocytes # 0.9 K/mcL (0.6-4.6); Lymphocytes % 9.3 %; Mean Corpuscular HGB Conc 33.1 g/dL (31.6-35.5); Mean Corpuscular Hemoglobin 28.7 pg (28.0-33.3); Mean Corpuscular Volume 86.7 fL (83.0-100.0); Mean Platelet Volume 9.1 fL (9.4-12.4); Monocytes # 1.2 K/mcL (0.0-1.3); Monocytes % 12.9 %; Platelet Count 244 K/mcL (140-400); Red Blood Count 3.38 M/mcL (4.19-5.50); Red Cell Distribution Width 16.6 % (11.5-14.5); Segmented Neutrophils % 74.6 %
[2017-08-05 05:27] LABS: INR 1.4; Prothrombin Time 15.2 Seconds (9.4-12.1)
[2017-08-05 05:34] LABS: BUN/Creatinine Ratio 36 (6-26); Blood Urea Nitrogen 36 mg/dL (8-23); Carbon Dioxide 26 mEq/L (23-29); Chloride 110 mEq/L (98-107); Glucose 180 mg/dL (70-105); Magnesium 2.3 mg/dL (1.6-2.6); Osmolality,Calculated 311 (280-300); Potassium 3.5 mEq/L (3.5-5.1); Sodium 144 mEq/L (136-145); eGFR For African Americans > 60 (> 60); eGFR For Non-African Americans > 60 (> 60)
[2017-08-05] MEDS ORDERED: Cefepime HCl 1,000 MG in Water for inj. (sterile) 20 ML 20 ML IVPB SCH (06:00)
[2017-08-05 06:43] LABS: Hematocrit 28.6 % (37.5-50.1); Hemoglobin 9.6 g/dL (12.9-16.9)
--- NOTE | 2017-08-05 07:45 | Internal Med Progress Note ---
Date of Encounter: 08/05/17 Time of Encounter: 07:40 - Assessment and plan (1) Sepsis Current Visit: Yes Status: Acute Assessment and plan: Sepsis with MRSA bacteremia. Repeat blood cultures. Infectious disease recs appreciated. Per pharmacist, staph might be contaminanat and not true MRSA. Will follow up sensitivities and hold vancomycin for now (2) Acute upper GI bleed Current Visit: Yes Status: Acute Assessment and plan: GI following. COntinue protonix drip. Hemgolobin stable. Per GI, no indicstion for endoscopy at this time. Will start on a diet (3) Acute metabolic encephalopathy Current Visit: Yes Status: Acute Assessment and plan: His delirium might be due to acute matabolic encephaloapthy as well as with dementia vs MRSA sepsis. Continue fluids and supportive care (4) Diabetes mellitus with neuropathy Current Visit: Yes Status: Acute Assessment and plan: ISS and ADA diet when pt is fully awake ACHS accuchecks Qualifiers: Diabetes mellitus type: type 2 Diabetes mellitus chcf insulin use: unspecified long term care administrator insulin use status Qualified Code(s): E11.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, unspecified (5) Hyponatremia Current Visit: Yes Status: Acute Assessment and plan: Sodium was 144 this am. Discontinue normal saline and start on half normal saline (6) Elevated troponin Current Visit: Yes Status: Acute Assessment and plan: Trops on admission 0.77.. trended down No CP Resumed home meds - ASA, Statin and BB 2D echo showed no acute findings. Etiology likely 2/2 to demand ischemia (7) VIRIDIANA (acute kidney injury) Current Visit: Yes Status: Acute Assessment and plan: Due to dehydration improving cont genlte IVF avoid nephro toxic meds (8) Elevated INR Current Visit: Yes Status: Acute Assessment and plan: patient has INR of 8.0 on admission most likely due to nutritional def / dehydration / VIRIDIANA Since he just had hematemesis and Hb dropped down to 10.7 gave him 10mg IV Vit K Also ordered 2 U FFP cont holding Coumadin check INR closely. INR down to 1.4 today s/p vitsamin K and FFP (9) High ankle sprain of right lower extremity Current Visit: Yes Status: Acute Assessment and plan: previous worked up a gonzalez, no fracture - as per family however X ray of ankle here showed fractures of the medial malleolus and distal fibula Washing Machine Striper consulted - appreciate your help Qualifiers: Encounter type: initial encounter Qualified Code(s): S93.431A - Sprain of tibiofibular ligament of right ankle, initial encounter (10) Hypothyroid Current Visit: Yes Status: Acute Assessment and plan: continue home Rx Qualifiers: Qualified Code(s): E03.9 - Hypothyroidism, unspecified (11) Afib Current Visit: Yes Status: Acute Assessment and plan: currently rate fairly controlled Switched to IV Lopressor holding coumadin Qualifiers: Atrial fibrillation type: persistent Qualified Code(s): I48.1 - Persistent atrial fibrillation (12) CHF (congestive heart failure) Current Visit: Yes Status: Chronic Assessment and plan: Mostly diastoic CHF Not in exacerbation resumed home meds except diuretics Qualifiers: Heart failure type: unspecified Heart failure chronicity: unspecified Qualified Code(s): I50.9 - Heart failure, unspecified (13) Hypertension Current Visit: Yes Status: Acute Assessment and plan: currently stable, continue home rx Qualifiers: Hypertension type: essential hypertension Qualified Code(s): I10 - Essential (primary) hypertension (14) Goals of care, counseling/discussion Current Visit: Yes Status: Acute Assessment and plan: is PoA. [facility] [phone]. has PoA and DNR/DNI/CCA paper work. (15) Fall Current Visit: Yes Status: Acute Assessment and plan: un witness fall. Patient is high risk due to INR of 8.0, confusion and PMHx. CT of head - no acute ICH Fall precautions Qualifiers: Qualified Code(s): W19.XXXA - Unspecified fall, initial encounter (16) DVT prophylaxis Current Visit: Yes Status: Acute Assessment and plan: EPCD. Coumadin currently held - Time Spent With Patient Total time spent is greater than 50% in coordination of care (as documented) at patient's floor/unit and/or counseling patient: - Subjective Interval history: No acute events overnight - Constitutional Vitals: Temp Pulse Resp BP Pulse Ox 98.8 F 104 18 107/90 98 08/05/17 05:19 08/05/17 07:20 08/05/17 07:20 08/05/17 07:20 08/05/17 07:20 General appearance: Present: cooperative, A&O X 3, obese, answers questions appropriately - Head Head exam: Present: atraumatic, normocephalic - Eye Eye exam: Present: PERRL, conjuntiva pink, sclera anicteric Pupils: Present: PERRL - Neck Neck exam general surgery: Present: supple, trachea midline. Absent: lymphadenopathy - Respiratory Respiratory exam: Present: CTAB. Absent: accessory muscle use, rales, rhonchi, wheezes - Cardiovascular Cardiovascular exam: Present: RRR, +S1, +S2. Absent: diastolic murmur, gallop, rubs, systolic murmur - GI/Abdominal GI/Abdominal exam: Present: normal bowel sounds, soft, no peritoneal signs. Absent: distended, tenderness - Extremities Exam Extremities exam: Present: warm, radial pulses palpable and symmetrical. Absent : calf tenderness, cyanotic, pedal edema - Neurological Exam Neurological exam: Present: CN II-XII intact, oriented X3, no focal deficits. Absent: pronater drift, facial droop, speech deficit - Skin Skin exam: Present: dry, intact Internal Medicine: Result - Labs CBC & Chem 7: 08/05/17 06:15 08/05/17 04:35 Labs: Short CBC 08/04/17 08/05/17 08/05/17 Range/Units 18:10 04:35 06:15 WBC 9.9 9.3 (4.3-11.1) K/mcL Hgb 9.9 L 9.7 L 9.6 L (12.9-16.9) g/dL Hct 28.2 L 29.3 L 28.6 L (37.5-50.1) % Plt Count 255 244 (140-400) K/mcL Neutrophils # 7.5 7.0 (1.6-8.9) K/mcL BMP 08/04/17 08/04/17 08/05/17 07:55 18:10 04:35 Sodium 133 L 138 144 Potassium 3.3 L 3.5 Chloride 105 110 H Carbon Dioxide 26 26 BUN 51 H 36 H Creatinine 1.03 0.99 Glucose 181 H 180 H Calcium 9.1 9.0 - ABG Interpretation ABG results: PT/INR, D-dimer PT 15.2 Seconds (9.4-12.1) H 08/05/17 04:35 - Impressions Impressions Echocardiogram 08/03/17 12:27 Impressions: Technically difficult study due to poor windows and patient would not turn on left side for images. LVEF 60-65%. Not all LV segments were well visualized, but overall LVEF appears normal. Normal LV chamber size. Indeterminate diastolic function. Normal right ventricular structure and function. Aortic valve not well visualized. Mild aortic stenosis by Doppler. Mean gradient 16 mmHg. Mild pulmonary hypertension. Estimated RVSP 42 mmHg. Findings: Study Quality * Technically sub-optimal due to poor echocardiographic windows. ECG Findings * Atrial fibrillation. Left Ventricle * LVEF 60-65%. Not all LV segments were well visualized, but overall LVEF appears normal. * Normal LV chamber size. * Indeterminate diastolic function. Right Ventricle * Normal right ventricular structure and function. Left Atrium * Moderately dilated left atrium. Right Atrium * Moderately dilated right atrium. Aortic Valve * Aortic valve not well visualized. * Grossly, the aortic valve appears calcified. * No aortic regurgitation. * Mild aortic stenosis by Doppler. Mean gradient 16 mmHg. Mitral Valve * Normal mitral valve structure and function. * No mitral stenosis. * No mitral regurgitation. Tricuspid Valve * Normal tricuspid valve structure and function. * Trace tricuspid regurgitation. * Mild pulmonary hypertension. Estimated RVSP 42 mmHg. Pulmonic Valve * Pulmonic valve not well visualized. Aorta * Normally sized aortic root. Pericardium * There is a trivial pericardial effusion present. IVC * Normal IVC dimensions and inspiratory collapse. Pulmonary Artery * Pulmonary artery not well visualized. - VTE Documentation of Mechanical Device: Intermittent pneumatic compression device Consult Discharge Plan - Plan Referrals: Garth Little DO [Primary Care Provider] -
[2017-08-05] MEDS: Aspirin 81 MG TAB.CHEW PO SCH (08:26)
[2017-08-05] MEDS: Insulin LISPRO 300 UNITS/3 ML VIAL SQ SCH ×4 (08:39→21:13)
--- NOTE | 2017-08-05 16:21 | Infectious Disease Consult ---
Date of Encounter: 08/05/17 Time of Encounter: 16:15 Assessment and Plan (1) Urinary tract infection Status: Acute Assessment and plan: Causative organism Escherichia coli Source urine Given the patient's mental status unable to gauge symptoms however given his fall and questionable confusion as well as greater than 100,000 colony-forming units of Escherichia coli this may represent true infection. Sensitivities reveal that this bacteria is resistant to ampicillin, Unasyn, and intermediate to Augmentin Is sensitive to Bactrim Will start Bactrim DS 1 tab twice a day for 5-7 days ID will sign off, please call with any questions Qualifiers: Urinary tract infection type: acute cystitis Hematuria presence: with hematuria Qualified Code(s): N30.01 - Acute cystitis with hematuria (2) Positive blood culture Status: Acute Assessment and plan: One out of 4 blood cultures positive for Staphylococcus species expressing the mecA gene. This is not staph aureus. This is likely a contaminate given the patient's clinical picture. Repeat blood cultures are pending. If repeat blood cultures are remain negative recommend no further treatment. (3) VIRIDIANA (acute kidney injury) Status: Resolved Assessment and plan: Resolved at this time. Likely prerenal azotemia. Creatinine clearance is 70 Further management per primary/nephrology (4) Hyponatremia Status: Acute Assessment and plan: Likely hypovolemic hyponatremia setting of dehydration Nephrology following further recommendations per primary/nephrology (5) Anemia Status: Acute Assessment and plan: Appears to be acute blood loss in the setting of GI bleed. Further management per GI/primary Qualifiers: Anemia type: unspecified type Qualified Code(s): D64.9 - Anemia, unspecified (6) Elevated INR Status: Acute Assessment and plan: Secondary to Coumadin use. Was reversed and now normal. No evidence of active bleeding Further management per primary (7) Acute upper GI bleed Status: Acute (8) Fall Status: Acute Qualifiers: Encounter type: initial encounter Qualified Code(s): W19.XXXA - Unspecified fall, initial encounter (9) Diabetes mellitus with neuropathy Status: Acute Qualifiers: Diabetes mellitus type: type 2 Diabetes mellitus long term care administrator insulin use: unspecified prison insulin use status Qualified Code(s): E11.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, unspecified (10) Hypothyroid Status: Acute Qualifiers: Hypothyroidism type: unspecified Qualified Code(s): E03.9 - Hypothyroidism , unspecified (11) Afib Status: Acute Qualifiers: Atrial fibrillation type: persistent Qualified Code(s): I48.1 - Persistent atrial fibrillation (12) COPD (chronic obstructive pulmonary disease) Status: Acute Qualifiers: COPD type: unspecified COPD Qualified Code(s): J44.9 - Chronic obstructive pulmonary disease, unspecified (13) CHF (congestive heart failure) Status: Chronic Qualifiers: Heart failure type: unspecified Heart failure chronicity: unspecified Qualified Code(s): I50.9 - Heart failure, unspecified (14) GERD (gastroesophageal reflux disease) Status: Acute Qualifiers: Esophagitis presence: esophagitis presence not specified Qualified Code(s) : K21.9 - Gastro-esophageal reflux disease without esophagitis (15) Hypertension Status: Acute Qualifiers: Hypertension type: essential hypertension Qualified Code(s): I10 - Essential (primary) hypertension Infectious Disease HPI - Data of Consult Patient: new to practice Consult date: 08/05/17 Requesting Physician: Myke Cobb Primary Care Provider: Garth Little - Consult Narrative Reason for consult: Positive blood culture History of present illness: Mr. Mack is a 82 year old male with history of COPD, insulin-dependent diabetes, hypothyroidism, hypertension, atrial fibrillation, congestive heart failure, GERD, dementia, recent UTI, recent fall. Patient was admitted on August 03 after a fall. Infectious disease was consulted on August 05 due to positive blood culture. Patient is an 82-year-old male with previous medical history as stated above. Patient is an extremely poor historian and is unable to provide a history. History is obtained from the medical record. Per the record the patient got up in the middle the night to have a bowel movement and had a fall. He was transferred to [facility] and found to have elevated troponins so he is transferred to [place]. Patient has no recollection of events leading to his admission. At this time the patient is unable to verbalize any complaints. Patient had blood cultures drawn upon arrival and 1 out of 4 bottles was positive for staph species with mecA gene. Upon arrival patient was found to be afebrile, tachycardic with a heart rate in the low 100s in atrial fibrillation, blood pressure has remained stable through admission. White blood cell count was 15.9 on arrival, hemoglobin 11.6.he is found to be hyponatremic at 124 with an elevated creatinine of 1.54. He is hyperglycemic at 308, his lactic acid was slightly elevated at 2.4 which has since normalized. INR was acutely elevated 8.0. Urinalysis had small leukocyte esterase and subsequent urine culture was positive for Escherichia coli. Blood cultures were drawn in 1 out of 4 bottles was positive for staph species with mecA gene, not staph aureus. CC: Myke Cobb Past Med Surg Social Fam HX - Past Medical History Medical history: atrial fibrillation, COPD, coronary artery disease, diabetes, hyperlipidemia, hypertension Psychiatric history: no psych history - Past Surgical History Surgical History: cancer surgery, prostatectomy - Social History Smoking Status: Former smoker Alcohol use: none Drug use: none Infectious Disease-CN:Meds Atorvastatin Calcium [Lipitor] 80 mg PO HS 08/03/17 [History] Budesonide/Formoterol 160/4.5 [Symbicort 160/4.5] 2 puff IH BIDR 08/03/17 [ History] Insulin DETEMIR [Levemir Flextouch] 40 - 50 unit SQ HS 08/03/17 [History] Insulin LISPRO [Humalog Kwikpen U-100] 0 unit SQ TID PRN 08/03/17 [History] Levothyroxine Sodium [Levoxyl] 175 mcg PO DAILY 08/03/17 [History] Losartan Potassium [Cozaar] 50 mg PO DAILY 08/03/17 [History] Metoprolol [Lopressor] 50 mg PO BID 08/03/17 [History] Metoprolol [Lopressor] 50 mg PO BID 08/03/17 [History] Omeprazole [PriLOSEC] 20 mg PO DAILY 08/03/17 [History] Potassium Chloride [K-Tab ER] 80 meq PO BID 08/03/17 [History] Spironolactone [Aldactone] 25 mg PO DAILY 08/03/17 [History] Tiotropium [Spiriva] 18 mcg IH DAILY 08/03/17 [History] Torsemide [Demadex] 100 mg PO BID 08/03/17 [History] Warfarin [Coumadin] 8.5 mg PO DAILY 08/03/17 [History] metOLazone [Metolazone] 10 mg PO DAILY 08/03/17 [History] 3 Allergy/AdvReac Type Severity Reaction Status Date / Time metformin [From Glucophage] Allergy Diarrhea Verified 12/11/14 11:57 Sulfa (Sulfonamide Allergy See Verified 08/05/17 17:59 Antibiotics) Comments ROS unobtainable: due to mental status Exam - Constitutional Vitals: Temp Pulse Resp BP Pulse Ox 98.1 F 99 18 128/71 100 08/05/17 12:15 08/05/17 15:05 08/05/17 15:05 08/05/17 15:05 08/05/17 15:05 General appearance: no acute distress, obese - Head Head exam: Present: atraumatic, normal inspection, normocephalic - Eye Eye exam: Present: EOMI, PERRL - ENT ENT exam: Present: mucous membranes dry - Respiratory Respiratory exam: Present: CTAB. Absent: rales, rhonchi, stridor - Cardiovascular Cardiovascular exam: Present: irregular rhythm, tachycardia. Absent: diastolic murmur, systolic murmur - GI/Abdominal GI/Abdominal exam: Present: hypoactive bowel sounds, soft. Absent: distended, tenderness - Extremities Exam Extremities exam: Absent: pedal edema Additional comments: Patient has walking boot on right lower extremity - Neurological Exam Neurological exam: Present: alert, altered, no focal deficits - Psychiatric Psychiatric exam: Absent: anxious, depressed Infectious Disease CN: Results - Labs CBC & Chem 7: 08/05/17 06:15 08/05/17 04:35 Cultures: Cultures 08/03/17 11:00 Urine Culture - Preliminary Urine,Clean Catch No growth. 08/03/17 07:18 Blood Culture - Preliminary Peripheral Venipuncture Gram Positive Cocci Serology: Serology 08/04/17 08/04/17 08/03/17 Range/Units 04:00 04:00 11:00 Urine Color (Yellow) Urine Clarity (Clear) Urine pH (5.0-8.0) pH Units Ur Specific Gurley (1.010-1.025) Urine Protein (Neg-Trace) mg/dL Urine Glucose (UA) (Normal) mg/dL Urine Ketones (Negative) mg/dL Urine Blood (Negative) Urine Nitrite (Negative) Urine Bilirubin (Negative) Urine Urobilinogen (Normal) mg/dL Ur Leukocyte Esterase (Negative) Urine Microscopic RBC (0-3) per hpf Urine Microscopic WBC (0-3) per hpf Ur Squamous Epith Cells (None-Few) per lpf Urine Bacteria (None-Few) per hpf Hyaline Casts (None-Few) per lpf Ur Culture Indicated? (NO) Urine Osmolality 394 (300-1090) mOsm/kg Urine Creatinine 36 mg/dL Protein/Creatinin Ratio 0.31 H (0.00-0.20) mg/mg Urine Sodium < 10.0 mEq/L Urine Urea Nitrogen mg/dL Urine Total Protein 11 (1-14) mg/dL A. baumannii (PCR) (Not Detect) Mago albicans (PCR) (Not Detect) C. glabrata (PCR) (Not Detect) C. krusei (PCR) (Not Detect) C. parapsilosis (PCR) (Not Detect) C. tropicalis (PCR) (Not Detect) Enterobacteriac sp PCR (Not Detect) E. cloacae complex PCR (Not Detect) Enterococcus sp PCR (Not Detect) E. coli (PCR) (Not Detect) H. influenzae (PCR) (Not Detect) Klebsiella oxytoca PCR (Not Detect) Klebsiella pneumoniae (Not Detect) List. monocytogenes PCR (Not Detect) N. meningitidis (PCR) (Not Detect) Proteus species (PCR) (Not Detect) Serratia marcescens PCR (Not Detect) Staphylococcus sp PCR (Not Detect) Staph aureus (PCR) (Not Detect) mecA-Methicil Res Gene (Not Detect) Streptococcus sp PCR (Not Detect) Group A Strep DNA (Not Detect) Group B Strep (PCR) (Not Detect) Strep pneumoniae (PCR) (Not Detect) P. aeruginosa (PCR) (Not Detect) Elton/B-Vanco Res Genes (Not Detect) KPC (blaKPC) Detect PCR (Not Detect) 08/03/17 08/03/17 08/03/17 Range/Units 11:00 11:00 11:00 Urine Color Yellow (Yellow) Urine Clarity Clear (Clear) Urine pH 6.0 (5.0-8.0) pH Units Ur Specific Gurley 1.016 (1.010-1.025) Urine Protein Negative (Neg-Trace) mg/dL Urine Glucose (UA) Normal (Normal) mg/dL Urine Ketones Negative (Negative) mg/dL Urine Blood Trace H (Negative) Urine Nitrite Negative (Negative) Urine Bilirubin Negative (Negative) Urine Urobilinogen Normal (Normal) mg/dL Ur Leukocyte Esterase Small H (Negative) Urine Microscopic RBC 0-3 (0-3) per hpf Urine Microscopic WBC 0-3 (0-3) per hpf Ur Squamous Epith Cells Moderate H (None-Few) per lpf Urine Bacteria None Seen (None-Few) per hpf Hyaline Casts None Seen (None-Few) per lpf Ur Culture Indicated? YES A (NO) Urine Osmolality 331 (300-1090) mOsm/kg Urine Creatinine mg/dL Protein/Creatinin Ratio (0.00-0.20) mg/mg Urine Sodium < 10.0 mEq/L Urine Urea Nitrogen mg/dL Urine Total Protein (1-14) mg/dL A. baumannii (PCR) (Not Detect) Mago albicans (PCR) (Not Detect) C. glabrata (PCR) (Not Detect) C. krusei (PCR) (Not Detect) C. parapsilosis (PCR) (Not Detect) C. tropicalis (PCR) (Not Detect) Enterobacteriac sp PCR (Not Detect) E. cloacae complex PCR (Not Detect) Enterococcus sp PCR (Not Detect) E. coli (PCR) (Not Detect) H. influenzae (PCR) (Not Detect) Klebsiella oxytoca PCR (Not Detect) Klebsiella pneumoniae (Not Detect) List. monocytogenes PCR (Not Detect) N. meningitidis (PCR) (Not Detect) Proteus species (PCR) (Not Detect) Serratia marcescens PCR (Not Detect) Staphylococcus sp PCR (Not Detect) Staph aureus (PCR) (Not Detect) mecA-Methicil Res Gene (Not Detect) Streptococcus sp PCR (Not Detect) Group A Strep DNA (Not Detect) Group B Strep (PCR) (Not Detect) Strep pneumoniae (PCR) (Not Detect) P. aeruginosa (PCR) (Not Detect) Elton/B-Vanco Res Genes (Not Detect) KPC (blaKPC) Detect PCR (Not Detect) 08/03/17 08/03/17 Range/Units 11:00 07:18 Urine Color (Yellow) Urine Clarity (Clear) Urine pH (5.0-8.0) pH Units Ur Specific Gurley (1.010-1.025) Urine Protein (Neg-Trace) mg/dL Urine Glucose (UA) (Normal) mg/dL Urine Ketones (Negative) mg/dL Urine Blood (Negative) Urine Nitrite (Negative) Urine Bilirubin (Negative) Urine Urobilinogen (Normal) mg/dL Ur Leukocyte Esterase (Negative) Urine Microscopic RBC (0-3) per hpf Urine Microscopic WBC (0-3) per hpf Ur Squamous Epith Cells (None-Few) per lpf Urine Bacteria (None-Few) per hpf Hyaline Casts (None-Few) per lpf Ur Culture Indicated? (NO) Urine Osmolality (300-1090) mOsm/kg Urine Creatinine 36 mg/dL Protein/Creatinin Ratio (0.00-0.20) mg/mg Urine Sodium mEq/L Urine Urea Nitrogen 602 mg/dL Urine Total Protein (1-14) mg/dL A. baumannii (PCR) Not Detected (Not Detect) Mago albicans (PCR) Not Detected (Not Detect) C. glabrata (PCR) Not Detected (Not Detect) C. krusei (PCR) Not Detected (Not Detect) C. parapsilosis (PCR) Not Detected (Not Detect) C. tropicalis (PCR) Not Detected (Not Detect) Enterobacteriac sp PCR Not Detected (Not Detect) E. cloacae complex PCR Not Detected (Not Detect) Enterococcus sp PCR Not Detected (Not Detect) E. coli (PCR) Not Detected (Not Detect) H. influenzae (PCR) Not Detected (Not Detect) Klebsiella oxytoca PCR Not Detected (Not Detect) Klebsiella pneumoniae Not Detected (Not Detect) List. monocytogenes PCR Not Detected (Not Detect) N. meningitidis (PCR) Not Detected (Not Detect) Proteus species (PCR) Not Detected (Not Detect) Serratia marcescens PCR Not Detected (Not Detect) Staphylococcus sp PCR DETECTED A (Not Detect) Staph aureus (PCR) Not Detected (Not Detect) mecA-Methicil Res Gene DETECTED A (Not Detect) Streptococcus sp PCR Not Detected (Not Detect) Group A Strep DNA Not Detected (Not Detect) Group B Strep (PCR) Not Detected (Not Detect) Strep pneumoniae (PCR) Not Detected (Not Detect) P. aeruginosa (PCR) Not Detected (Not Detect) Elton/B-Vanco Res Genes N/A (Not Detect) KPC (blaKPC) Detect PCR N/A (Not Detect) - VTE Documentation of Mechanical Device: Intermittent pneumatic compression device Consult Discharge Plan - Plan Referrals: Garth Little DO [Primary Care Provider] - - Attending Attestation I examined this patient and my medical decision-making was reviewed with the Resident Physician. I agree with the documented findings, disposition and treatment plan as described except to the extent set forth below. Nita addendum to original report dictated by resident physician. Please refer to residents note for full detail. Patient was seen and examined in the presence of his and daughter and grandchild. Patient sleeping comfortably with no acute distress. I agree with above history of present illness and physical exam findings. although tells me that the patient is also allergic to sulfa that was not on our list. Assessment and plan: Urinary tract infection with Escherichia coli Positive blood culture coag-negative staph within MecA gene 1 out of 4 sets Acute kidney injury A. fib with RVR Diabetes mellitus with neuropathy Status post fall Recommendations: The patient's coag-negative staph in the blood is likely contaminant. I would not pursue any further this time. As for the UTI patient has positive Escherichia coli that septal to marked palpable oral options. Patient is allergic to Bactrim per a few years back ago he was allergic to sulfa so I will stop the Bactrim and start him on levofloxacin to finish a 5-7 day course. Patient otherwise stable we will be happy to reevaluate if anything new comes up in the meantime we will sign off.
[2017-08-05] MEDS: levoFLOXacin 500 MG TABLET PO SCH (18:11)
[2017-08-05] MEDS ORDERED: Sulfamethoxazole/Trimeth DS 1 EACH TABLET PO SCH (21:00)
[2017-08-06] MEDS: Ipratropium/Albuterol Neb 3 ML IH SCH ×6 (01:34→20:12)
[2017-08-06] MEDS: Pantoprazole 40 MG in 0.9 % Sodium Chloride Mini Bag 100 ML IVC SCH ×2 (04:00→09:35)
[2017-08-06 06:40] LABS: Basophils % 0.1 %; Eosinophils # 0.3 K/mcL (0.0-0.6); Hematocrit 29.7 % (37.5-50.1); Hemoglobin 9.4 g/dL (12.9-16.9); Immature Granulocytes % 1.1 % (0-4); Lymphocytes # 1.2 K/mcL (0.6-4.6); Lymphocytes % 12.3 %; Mean Corpuscular HGB Conc 31.6 g/dL (31.6-35.5); Mean Corpuscular Hemoglobin 28.7 pg (28.0-33.3); Mean Corpuscular Volume 90.8 fL (83.0-100.0); Monocytes # 1.1 K/mcL (0.0-1.3); Monocytes % 11.5 %; Neutrophils # 7.1 K/mcL (1.6-8.9); Platelet Count 229 K/mcL (140-400); Red Blood Count 3.27 M/mcL (4.19-5.50); Red Cell Distribution Width 17.1 % (11.5-14.5)
[2017-08-06 07:00] LABS: BUN/Creatinine Ratio 23 (6-26); Blood Urea Nitrogen 20 mg/dL (8-23); Carbon Dioxide 25 mEq/L (23-29); Chloride 114 mEq/L (98-107); Glucose 174 mg/dL (70-105); Magnesium 2.1 mg/dL (1.6-2.6); Osmolality,Calculated 309 (280-300); Phosphorous 1.8 mg/dL (2.7-4.5); Potassium 3.6 mEq/L (3.5-5.1); Sodium 146 mEq/L (136-145); eGFR For African Americans > 60 (> 60); eGFR For Non-African Americans > 60 (> 60)
[2017-08-06] MEDS: Insulin LISPRO 300 UNITS/3 ML VIAL SQ SCH ×4 (08:06→23:18)
[2017-08-06] MEDS: Aspirin 81 MG TAB.CHEW PO SCH (11:21)
[2017-08-06] MEDS ORDERED: DEXTROSE 5 % IN WATER 50 ML PGGYBK.PRT IV SCH (12:00)
--- NOTE | 2017-08-06 12:15 | Internal Med Progress Note ---
Date of Encounter: 08/06/17 Time of Encounter: 12:15 - Assessment and plan (1) Afib Current Visit: Yes Status: Acute Assessment and plan: A fib with RVR. Currently on Cardizem drip. Plan to wean off cardizem and start lopressor. Holding anticoagulation 2/2 to GI bleed Qualifiers: Atrial fibrillation type: persistent Qualified Code(s): I48.1 - Persistent atrial fibrillation (2) Sepsis Current Visit: Yes Status: Acute Assessment and plan: Sepsis with UTI. Seen by ID.Completed course of cefepime.Will start on bactrim. what was thought to be MRSA is likely a contaminanat. Qualifiers: Sepsis type: sepsis due to unspecified organism Qualified Code(s): A41.9 - Sepsis, unspecified organism (3) Acute upper GI bleed Current Visit: Yes Status: Acute Assessment and plan: GI following. D/C protonix drip and start on BID PPI. Hemgolobin stable. Per GI , no indication for endoscopy at this time. Will start on a diet. Plan to restart anticoagulation if clear by GI (4) Acute metabolic encephalopathy Current Visit: Yes Status: Acute Assessment and plan: His delirium might be due to acute matabolic encephaloapthy as well as with dementia vs MRSA sepsis. 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 Discontinue normal saline and start on half normal saline (7) Elevated troponin Current Visit: Yes Status: Acute Assessment and plan: Trops on admission 0.77.. trended down No CP Resumed home meds - ASA, Statin and BB 2D echo showed no acute findings. Etiology likely 2/2 to demand ischemia (8) VIRIDIANA (acute kidney injury) Current Visit: Yes Status: Resolved Assessment and plan: Due to dehydration improving cont genlte IVF avoid nephro toxic meds (9) Elevated INR Current Visit: Yes Status: Acute Assessment and plan: patient has INR of 8.0 on admission most likely due to nutritional def / dehydration / VIRIDIANA Since he just had hematemesis and Hb dropped down to 10.7 gave him 10mg IV Vit K Also ordered 2 U FFP cont holding Coumadin check INR closely. INR down to 1.4 today s/p vitsamin K and FFP (10) High ankle sprain of right lower extremity Current Visit: Yes Status: Acute Assessment and plan: previous worked up a gonzalez, no fracture - as per family however X ray of ankle here showed fractures of the medial malleolus and distal fibula Senior Net Architect consulted - appreciate your help Qualifiers: Encounter type: initial encounter Qualified Code(s): S93.431A - Sprain of tibiofibular ligament of right ankle, initial encounter (11) Hypothyroid Current Visit: Yes Status: Acute Assessment and plan: continue home Rx Qualifiers: Hypothyroidism type: unspecified Qualified Code(s): E03.9 - Hypothyroidism , unspecified (12) CHF (congestive heart failure) Current Visit: Yes Status: Chronic Assessment and plan: Mostly diastoic CHF Not in exacerbation resumed home meds except diuretics Qualifiers: Heart failure type: unspecified Heart failure chronicity: unspecified Qualified Code(s): I50.9 - Heart failure, unspecified (13) Hypertension Current Visit: Yes Status: Acute Assessment and plan: currently stable, continue home rx Qualifiers: Hypertension type: essential hypertension Qualified Code(s): I10 - Essential (primary) hypertension (14) Goals of care, counseling/discussion Current Visit: Yes Status: Acute Assessment and plan: is PoA. [facility] [phone]. has PoA and DNR/DNI/CCA paper work. (15) Fall Current Visit: Yes Status: Acute Assessment and plan: un witness fall. Patient is high risk due to INR of 8.0, confusion and PMHx. CT of head - no acute ICH Fall precautions Qualifiers: Encounter type: initial encounter Qualified Code(s): W19.XXXA - Unspecified fall, initial encounter (16) DVT prophylaxis Current Visit: Yes Status: Acute Assessment and plan: EPCD. Coumadin currently held - Time Spent With Patient Total time spent is greater than 50% in coordination of care (as documented) at patient's floor/unit and/or counseling patient: - Subjective Interval history: No acute events overnight - Constitutional Vitals: Temp Pulse Resp BP Pulse Ox 97.9 F 104 16 145/75 94 08/06/17 11:44 08/06/17 11:44 08/06/17 11:44 08/06/17 11:44 08/06/17 11:44 General appearance: Present: cooperative, A&O X 3, obese, answers questions appropriately - Head Head exam: Present: atraumatic, normocephalic - Eye Eye exam: Present: PERRL, conjuntiva pink, sclera anicteric Pupils: Present: PERRL - Neck Neck exam general surgery: Present: supple, trachea midline. Absent: lymphadenopathy - Respiratory Respiratory exam: Present: CTAB. Absent: accessory muscle use, rales, rhonchi, wheezes - Cardiovascular Cardiovascular exam: Present: RRR, +S1, +S2. Absent: diastolic murmur, gallop, rubs, systolic murmur - GI/Abdominal GI/Abdominal exam: Present: normal bowel sounds, soft, no peritoneal signs. Absent: distended, tenderness - Extremities Exam Extremities exam: Present: warm, radial pulses palpable and symmetrical. Absent : calf tenderness, cyanotic, pedal edema - Neurological Exam Neurological exam: Present: CN II-XII intact, oriented X3, no focal deficits. Absent: pronater drift, facial droop, speech deficit - Skin Skin exam: Present: dry, intact Internal Medicine: Result - Labs CBC & Chem 7: 08/06/17 06:20 08/06/17 06:20 Labs: Short CBC 08/06/17 Range/Units 06:20 WBC 9.9 (4.3-11.1) K/mcL Hgb 9.4 L (12.9-16.9) g/dL Hct 29.7 L (37.5-50.1) % Plt Count 229 (140-400) K/mcL Neutrophils # 7.1 (1.6-8.9) K/mcL BMP 08/06/17 06:20 Sodium 146 H Potassium 3.6 Chloride 114 H Carbon Dioxide 25 BUN 20 Creatinine 0.88 Glucose 174 H Calcium 9.0 - ABG Interpretation ABG results: PT/INR, D-dimer PT 15.2 Seconds (9.4-12.1) H 08/05/17 04:35 - Impressions Impressions Chest X-Ray 08/05/17 08:02 IMPRESSION: Stable COPD with no acute abnormality. D/ / 08/05/2017 09:22:35 Manuel Rosas MD / maria fernanda Interpreting Provider: Manuel Rosas MD - VTE Documentation of Mechanical Device: Intermittent pneumatic compression device Consult Discharge Plan - Plan Referrals: Garth Little DO [Primary Care Provider] -
[2017-08-06 13:20] LABS: INR 1.4; Prothrombin Time 15.6 Seconds (9.4-12.1)
[2017-08-06] MEDS: D5% in Water 1,000 ML IVC SCH (13:22)
[2017-08-06] MEDS: levoFLOXacin 500 MG TABLET PO SCH (17:27)
[2017-08-06] MEDS: Pantoprazole 40 MG VIAL IVP SCH (17:27)
[2017-08-07] MEDS: Ipratropium/Albuterol Neb 3 ML IH SCH ×7 (00:09→23:23)
[2017-08-07] MEDS: D5% in Water 1,000 ML IVC SCH (02:55)
[2017-08-07 05:24] LABS: Basophils % 0.2 %; Eosinophils # 0.2 K/mcL (0.0-0.6); Eosinophils % 2.1 %; Hematocrit 27.7 % (37.5-50.1); Immature Granulocytes % 0.8 % (0-4); Lymphocytes # 1.4 K/mcL (0.6-4.6); Lymphocytes % 13.5 %; Mean Corpuscular HGB Conc 32.5 g/dL (31.6-35.5); Mean Corpuscular Hemoglobin 29.5 pg (28.0-33.3); Mean Corpuscular Volume 90.8 fL (83.0-100.0); Mean Platelet Volume 9.1 fL (9.4-12.4); Monocytes # 0.9 K/mcL (0.0-1.3); Monocytes % 9.4 %; Neutrophils # 7.4 K/mcL (1.6-8.9); Nucleated Red Blood Cells 0.5 /100 WBC (0); Platelet Count 227 K/mcL (140-400); Red Blood Count 3.05 M/mcL (4.19-5.50); Red Cell Distribution Width 17.4 % (11.5-14.5)
[2017-08-07 05:45] LABS: BUN/Creatinine Ratio 17 (6-26); Blood Urea Nitrogen 15 mg/dL (8-23); Calcium 8.9 mg/dL (8.6-10.3); Carbon Dioxide 25 mEq/L (23-29); Chloride 114 mEq/L (98-107); Glucose 207 mg/dL (70-105); Osmolality,Calculated 311 (280-300); Potassium 3.4 mEq/L (3.5-5.1); Sodium 147 mEq/L (136-145); eGFR For African Americans > 60 (> 60); eGFR For Non-African Americans > 60 (> 60)
[2017-08-07] MEDS: Pantoprazole 40 MG VIAL IVP SCH ×2 (06:19→17:03)
--- NOTE | 2017-08-07 07:41 | Internal Med Progress Note ---
Date of Encounter: 08/07/17 Time of Encounter: 07:40 - Assessment and plan (1) Afib Current Visit: Yes Status: Acute Assessment and plan: A fib with RVR. Currently on Cardizem drip. Plan to wean off cardizem and start lopressor. Holding anticoagulation 2/2 to GI bleed. Pt's HR still elevated after resuming lopressor. Will add po cardizem to regimen Qualifiers: Atrial fibrillation type: persistent Qualified Code(s): I48.1 - Persistent atrial fibrillation (2) Sepsis Current Visit: Yes Status: Acute Assessment and plan: Sepsis with UTI. Seen by ID.Completed course of cefepime.Will start on bactrim. what was thought to be MRSA is likely a contaminant. Qualifiers: Sepsis type: sepsis due to unspecified organism Qualified Code(s): A41.9 - Sepsis, unspecified organism (3) Acute upper GI bleed Current Visit: Yes Status: Acute Assessment and plan: GI following. D/C protonix drip and start on BID PPI. Hemgolobin stable. Per GI , no indication for endoscopy at this time. Will start on a diet. Plan to restart anticoagulation if clear by GI (4) Acute metabolic encephalopathy Current Visit: Yes Status: Acute Assessment and plan: His delirium might be due to acute matabolic encephalopathy as well as with dementia vs UTI sepsis. 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 Patient has been started on free water (7) Elevated troponin Current Visit: Yes Status: Acute Assessment and plan: Trops on admission 0.77.. trended down No CP Resumed home meds - ASA, Statin and BB 2D echo showed no acute findings. Etiology likely 2/2 to demand ischemia (8) VIRIDIANA (acute kidney injury) Current Visit: Yes Status: Resolved Assessment and plan: Due to dehydration improving cont gentle IVF avoid nephro toxic meds (9) Elevated INR Current Visit: Yes Status: Acute Assessment and plan: patient has INR of 8.0 on admission most likely due to nutritional def / dehydration / VIRIDIANA Since he just had hematemesis and Hb dropped down to 10.7 gave him 10mg IV Vit K Also ordered 2 U FFP cont holding Coumadin check INR closely. INR down to 1.4 s/p vitamin K and FFP. Continue to hold anticoagulation until cleared by GI (10) High ankle sprain of right lower extremity Current Visit: Yes Status: Acute Assessment and plan: previous worked up a gonzalez, no fracture - as per family however X ray of ankle here showed fractures of the medial malleolus and distal fibula [employer] consulted - appreciate your help Qualifiers: Encounter type: initial encounter Qualified Code(s): S93.431A - Sprain of tibiofibular ligament of right ankle, initial encounter (11) Hypothyroid Current Visit: Yes Status: Acute Assessment and plan: continue home Rx Qualifiers: Hypothyroidism type: unspecified Qualified Code(s): E03.9 - Hypothyroidism , unspecified (12) CHF (congestive heart failure) Current Visit: Yes Status: Chronic Assessment and plan: Mostly diastoic CHF Not in exacerbation resumed home meds except diuretics Qualifiers: Heart failure type: unspecified Heart failure chronicity: unspecified Qualified Code(s): I50.9 - Heart failure, unspecified (13) Hypertension Current Visit: Yes Status: Acute Assessment and plan: currently stable, continue home rx Qualifiers: Hypertension type: essential hypertension Qualified Code(s): I10 - Essential (primary) hypertension (14) Goals of care, counseling/discussion Current Visit: Yes Status: Acute Assessment and plan: is PoA. [facility] [phone]. has PoA and DNR/DNI/CCA paper work. (15) Fall Current Visit: Yes Status: Acute Assessment and plan: un witness fall. Patient is high risk due to INR of 8.0, confusion and PMHx. CT of head - no acute ICH Fall precautions Qualifiers: Encounter type: initial encounter Qualified Code(s): W19.XXXA - Unspecified fall, initial encounter (16) DVT prophylaxis Current Visit: Yes Status: Acute Assessment and plan: EPCD. Coumadin currently held - Time Spent With Patient Total time spent is greater than 50% in coordination of care (as documented) at patient's floor/unit and/or counseling patient: - Subjective Interval history: No acute events overnight - Constitutional Vitals: Temp Pulse Resp BP Pulse Ox 99.0 F 102 16 123/71 98 08/07/17 03:26 08/07/17 03:26 08/07/17 03:48 08/07/17 03:08/07/17 03:48 General appearance: Present: cooperative, A&O X 3, obese, answers questions appropriately - Head Head exam: Present: atraumatic, normocephalic - Eye Eye exam: Present: PERRL, conjuntiva pink, sclera anicteric Pupils: Present: PERRL - Neck Neck exam general surgery: Present: supple, trachea midline. Absent: lymphadenopathy - Respiratory Respiratory exam: Present: CTAB. Absent: accessory muscle use, rales, rhonchi, wheezes - Cardiovascular Cardiovascular exam: Present: RRR, +S1, +S2. Absent: diastolic murmur, gallop, rubs, systolic murmur - GI/Abdominal GI/Abdominal exam: Present: normal bowel sounds, soft, no peritoneal signs. Absent: distended, tenderness - Extremities Exam Extremities exam: Present: warm, radial pulses palpable and symmetrical. Absent : calf tenderness, cyanotic, pedal edema - Neurological Exam Neurological exam: Present: CN II-XII intact, oriented X3, no focal deficits. Absent: pronater drift, facial droop, speech deficit - Skin Skin exam: Present: dry, intact Internal Medicine: Result - Labs CBC & Chem 7: 08/07/17 04:37 08/07/17 04:37 Labs: Short CBC 08/07/17 Range/Units 04:37 WBC 10.0 (4.3-11.1) K/mcL Hgb 9.0 L (12.9-16.9) g/dL Hct 27.7 L (37.5-50.1) % Plt Count 227 (140-400) K/mcL Neutrophils # 7.4 (1.6-8.9) K/mcL BMP 08/07/17 04:37 Sodium 147 H Potassium 3.4 L Chloride 114 H Carbon Dioxide 25 BUN 15 Creatinine 0.86 Glucose 207 H Calcium 8.9 - ABG Interpretation ABG results: PT/INR, D-dimer PT 15.6 Seconds (9.4-12.1) H 08/06/17 12:52 - Impressions Impressions Videofluoroscopic Swallow 08/06/17 11:53 IMPRESSION: Penetration with thin liquids which is improved with nectar consistency. Please see separate speech pathology report for full discussion of findings and recommendations. D/ / 08/06/2017 15:59:48 Antonio Blair MD / catina Interpreting Provider: Antonio Blair MD Head CT 08/06/17 12:12 IMPRESSION: Stable CT scan of the head without acute intracranial abnormality. Generalized cortical atrophy and chronic microvascular ischemic changes. D/ / Kenny Fajardo MD / Kenny Fajardo MD Interpreting Provider: Kenny Fajardo MD - VTE Documentation of Mechanical Device: Intermittent pneumatic compression device Consult Discharge Plan - Plan Referrals: Garth Little DO [Primary Care Provider] -
[2017-08-07] MEDS ORDERED: D5% in Water 1,000 ML IVC SCH (07:45)
[2017-08-07] MEDS: Aspirin 81 MG TAB.CHEW PO SCH (08:40)
[2017-08-07] MEDS ORDERED: Diltiazem CD (24hr) 120 MG CAPSULE PO SCH (09:00)
[2017-08-07] MEDS: Insulin LISPRO 300 UNITS/3 ML VIAL SQ SCH ×4 (09:04→22:15)
[2017-08-07] MEDS ORDERED: Furosemide 40 MG/4 ML VIAL IVP ONE (11:44)
[2017-08-07] MEDS: *HR* LORazepam 2 MG/ML VIAL IVP PRN ×2 (14:19→23:36)
[2017-08-07] MEDS: levoFLOXacin 500 MG TABLET PO SCH (17:02)
[2017-08-08] MEDS: Ipratropium/Albuterol Neb 3 ML IH SCH ×6 (03:51→23:18)
[2017-08-08 04:52] LABS: Basophils % 0.1 %; Eosinophils # 0.3 K/mcL (0.0-0.6); Eosinophils % 2.5 %; Hemoglobin 8.9 g/dL (12.9-16.9); Immature Granulocytes % 0.7 % (0-4); Lymphocytes # 1.5 K/mcL (0.6-4.6); Lymphocytes % 11.4 %; Mean Corpuscular HGB Conc 31.8 g/dL (31.6-35.5); Mean Corpuscular Hemoglobin 29.9 pg (28.0-33.3); Monocytes # 1.2 K/mcL (0.0-1.3); Neutrophils # 9.9 K/mcL (1.6-8.9); Nucleated Red Blood Cells 0.2 /100 WBC (0); Platelet Count 196 K/mcL (140-400); Red Blood Count 2.98 M/mcL (4.19-5.50); Red Cell Distribution Width 17.4 % (11.5-14.5); Segmented Neutrophils % 76.3 %
[2017-08-08 05:12] LABS: BUN/Creatinine Ratio 14 (6-26); Blood Urea Nitrogen 16 mg/dL (8-23); Calcium 8.9 mg/dL (8.6-10.3); Carbon Dioxide 27 mEq/L (23-29); Chloride 114 mEq/L (98-107); Glucose 240 mg/dL (70-105); Osmolality,Calculated 311 (280-300); Potassium 3.9 mEq/L (3.5-5.1); Sodium 146 mEq/L (136-145); eGFR For African Americans > 60 (> 60); eGFR For Non-African Americans > 60 (> 60)
[2017-08-08] MEDS: Pantoprazole 40 MG VIAL IVP SCH ×2 (05:48→16:48)
[2017-08-08] MEDS: Diltiazem CD (24hr) 240 MG CAPSULE PO SCH (07:38)
[2017-08-08] MEDS: Aspirin 81 MG TAB.CHEW PO SCH (07:38)
--- NOTE | 2017-08-08 07:38 | Internal Med Progress Note ---
Date of Encounter: 08/08/17 Time of Encounter: 07:30 - Assessment and plan (1) Afib Current Visit: Yes Status: Acute Assessment and plan: A fib with RVR. Weaned off cardizem drip. Plan to wean off cardizem and start lopressor. Holding anticoagulation 2/2 to GI bleed. Pt's HR still elevated after resuming lopressor. Added po cardizem to regimen Qualifiers: Atrial fibrillation type: persistent Qualified Code(s): I48.1 - Persistent atrial fibrillation (2) Sepsis Current Visit: Yes Status: Acute Assessment and plan: Sepsis with UTI. Seen by ID.Completed course of cefepime. Possibly new HCAp developing. CXR showed new infiltrate and patient had a mild leukocytosis. will start on borad spectrum abx woth zosyn. repeat blood cultures. Obtain CT chest Qualifiers: Sepsis type: sepsis due to unspecified organism Qualified Code(s): A41.9 - Sepsis, unspecified organism (3) Pneumonia Current Visit: Yes Status: Acute Assessment and plan: Query HCAp. see management for sepsis Qualifiers: Qualified Code(s): J18.9 - Pneumonia, unspecified organism (4) Acute upper GI bleed Current Visit: Yes Status: Acute Assessment and plan: GI following. D/C protonix drip and start on BID PPI. Hemgolobin stable. Per GI , no indication for endoscopy at this time. Will start on a diet. Plan to restart anticoagulation if clear by GI (5) Acute metabolic encephalopathy Current Visit: Yes Status: Acute Assessment and plan: His delirium might be due to acute matabolic encephalopathy as well as with dementia vs UTI sepsis. Continue fluids and supportive care. 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 Patient has been started on free water (8) Elevated troponin Current Visit: Yes Status: Acute Assessment and plan: Trops on admission 0.77.. trended down No CP Resumed home meds - ASA, Statin and BB 2D echo showed no acute findings. Etiology likely 2/2 to demand ischemia (9) VIRIDIANA (acute kidney injury) Current Visit: Yes Status: Resolved Assessment and plan: Due to dehydration improving cont gentle IVF avoid nephro toxic meds (10) Elevated INR Current Visit: Yes Status: Acute Assessment and plan: patient has INR of 8.0 on admission most likely due to nutritional def / dehydration / VIRIDIANA Since he just had hematemesis and Hb dropped down to 10.7 gave him 10mg IV Vit K Also ordered 2 U FFP cont holding Coumadin check INR closely. INR down to 1.4 s/p vitamin K and FFP. Continue to hold anticoagulation until cleared by GI (11) High ankle sprain of right lower extremity Current Visit: Yes Status: Acute Assessment and plan: previous worked up a gonzalez, no fracture - as per family however X ray of ankle here showed fractures of the medial malleolus and distal fibula Manager Math consulted - appreciate your help Qualifiers: Encounter type: initial encounter Qualified Code(s): S93.431A - Sprain of tibiofibular ligament of right ankle, initial encounter (12) Hypothyroid Current Visit: Yes Status: Acute Assessment and plan: continue home Rx Qualifiers: Hypothyroidism type: unspecified Qualified Code(s): E03.9 - Hypothyroidism , unspecified (13) CHF (congestive heart failure) Current Visit: Yes Status: Chronic Assessment and plan: Mostly diastoic CHF Not in exacerbation resumed home meds except diuretics Qualifiers: Heart failure type: unspecified Heart failure chronicity: unspecified Qualified Code(s): I50.9 - Heart failure, unspecified (14) Hypertension Current Visit: Yes Status: Acute Assessment and plan: currently stable, continue home rx Qualifiers: Hypertension type: essential hypertension Qualified Code(s): I10 - Essential (primary) hypertension (15) Goals of care, counseling/discussion Current Visit: Yes Status: Acute Assessment and plan: is PoA. [facility] [phone]. has PoA and DNR/DNI/CCA paper work. (16) Fall Current Visit: Yes Status: Acute Assessment and plan: un witness fall. Patient is high risk due to INR of 8.0, confusion and PMHx. CT of head - no acute ICH Fall precautions Qualifiers: Encounter type: initial encounter Qualified Code(s): W19.XXXA - Unspecified fall, initial encounter (17) DVT prophylaxis Current Visit: Yes Status: Acute Assessment and plan: EPCD. Coumadin currently held - Time Spent With Patient Total time spent is greater than 50% in coordination of care (as documented) at patient's floor/unit and/or counseling patient: - Subjective Interval history: No acute events overnight - Constitutional Vitals: Temp Pulse Resp BP Pulse Ox 98.5 F 128 17 121/80 98 08/08/17 07:02 08/08/17 07:02 08/08/17 07:02 08/08/17 07:02 08/08/17 07:02 General appearance: Present: cooperative, A&O X 3, obese, answers questions appropriately Exam: Lethargic - Head Head exam: Present: atraumatic, normocephalic - Eye Eye exam: Present: PERRL, conjuntiva pink, sclera anicteric Pupils: Present: PERRL - Neck Neck exam general surgery: Present: supple, trachea midline. Absent: lymphadenopathy - Respiratory Respiratory exam: Present: CTAB. Absent: accessory muscle use, rales, rhonchi, wheezes - Cardiovascular Cardiovascular exam: Present: RRR, +S1, +S2. Absent: diastolic murmur, gallop, rubs, systolic murmur - GI/Abdominal GI/Abdominal exam: Present: normal bowel sounds, soft, no peritoneal signs. Absent: distended, tenderness - Extremities Exam Extremities exam: Present: warm, radial pulses palpable and symmetrical. Absent : calf tenderness, cyanotic, pedal edema - Neurological Exam Neurological exam: Present: CN II-XII intact, oriented X3, no focal deficits. Absent: pronater drift, facial droop, speech deficit - Skin Skin exam: Present: dry, intact Internal Medicine: Result - Labs CBC & Chem 7: 08/08/17 04:30 08/08/17 04:30 Labs: Short CBC 08/08/17 Range/Units 04:30 WBC 12.9 H (4.3-11.1) K/mcL Hgb 8.9 L (12.9-16.9) g/dL Hct 28.0 L (37.5-50.1) % Plt Count 196 (140-400) K/mcL Neutrophils # 9.9 H (1.6-8.9) K/mcL BMP 08/08/17 04:30 Sodium 146 H Potassium 3.9 Chloride 114 H Carbon Dioxide 27 BUN 16 Creatinine 1.16 Glucose 240 H Calcium 8.9 - ABG Interpretation ABG results: PT/INR, D-dimer PT 15.6 Seconds (9.4-12.1) H 08/06/17 12:52 - Impressions Impressions Chest X-Ray 08/07/17 10:15 IMPRESSION: COPD with developing right lower lobe atelectasis or infiltrate. Indeterminate nodular opacity left upper lobe. Recommend CT correlation. D/ / 08/07/2017 10:56:26 Arvind Lee MD / maria fernanda Interpreting Provider: Arvind Lee MD - VTE Documentation of Mechanical Device: Intermittent pneumatic compression device Consult Discharge Plan - Plan Referrals: Garth Little DO [Primary Care Provider] -
[2017-08-08] MEDS: *HR* LORazepam 2 MG/ML VIAL IVP PRN ×2 (07:39→20:22)
[2017-08-08] MEDS: Insulin LISPRO 300 UNITS/3 ML VIAL SQ SCH ×4 (07:48→21:59)
[2017-08-08] MEDS ORDERED: Benzonatate 100 MG CAPSULE PO PRN (08:09)
[2017-08-08] MEDS: Acetylcysteine 10% 2 ML INHSOL IH SCH ×3 (09:23→23:18)
--- NOTE | 2017-08-08 10:34 | Cardiology Progress Note ---
Date of Encounter: 08/08/17 Time of Encounter: 09:30 Assessment and Plan (1) Elevated troponin Current Visit: Yes Status: Acute Troponin elevated on presentation in setting of VIRIDIANA, hyponatremia. No not suspect ACS. No acute findings on ECG. Normal LVEF by echo. Continue aspirin , statin, BB. (2) Elevated INR Current Visit: Yes Status: Acute Presented with supratherapeutic INR, now normalized. Patient tolerating aspirin. Would appreciate recommendations from GI for intermodal customer service anticoagulation. (3) Afib Current Visit: Yes Status: Acute Reported longstanding hx of atrial fibrillation presented with rate controlled atrial fibrillation. Received call from hospitalist today regarding uncontrolled heart rates. Average HR overnight on telemetry is 111 bpm. Cardizem gtt was stopped and replaced with PO cardizem. MAR documents that lopressor this morning was held for "low BP" but I do not see very low blood pressures documented. Recommend ensuring lopressor and cardizem are given with careful watch on BP - especially if there is suspicion for a developing infection. Suspect elevated heart rates are a sign of an underlying developing infection - WBCs were improving but now are again elevated, CXR suggestive of an infiltrate, low grade temperature last 24h and now tremoring and confused. Will defer to Hospitalist for management. Once this underlying process is treated, suspect improvement in heart rates. In regards to anticoagulation, coumadin was held on admission due to supratherapeutic INR, 8.0. Recent hospitalization with sepsis, d/c'ed on po antibiotics, unclear when INR last checked as outpt. GI has been following. Now on aspirin. Would appreciate GI recommendations for [facility] anticoagulation from their standpoint. Qualifiers: Atrial fibrillation type: persistent Qualified Code(s): I48.1 - Persistent atrial fibrillation Discussion w patient/family: The assessment and plan as outlined above was discussed with the patient's who expressed understanding and agreement. All questions were answered. Thank you for involving us in the care of your patient. Please call with any questions. Subjective Principal diagnosis: AMS Interval history: Patient mumbling this morning, somewhat confused thinks it is 1918. at bedside said he has been tremoring overnight which is new. Objective Vital Signs, Last 4 Hours Temp Pulse Resp BP Pulse Ox 08/08/17 07:55 17 121/80 98 08/08/17 07:02 98.5 F 128 17 121/80 98 General: No Apparent Distress, Other (Tremors noted, attempts conversation but mumbles, appears confused) HEENT: Other (mucus membranes dry) Neck: Other (JVP difficult to appreciate) Cardiac: Other (irregularly irregular, no murmur) Lungs: Other (poor inspiratory effort, sounds rhonchorous, no wheeze) Neuro: Other (alert, confused) Abdomen: Soft, Other (bowel sounds audible) Extremities: Other (no significant LE edema on left, right sided is in a boot) Results 08/08/17 04:30 08/08/17 04:30 Lab Results 08/08/17 08/08/17 04:30 04:30 WBC 12.9 H Hgb 8.9 L Hct 28.0 L Plt Count 196 Sodium 146 H Potassium 3.9 Chloride 114 H Carbon Dioxide 27 BUN 16 Creatinine 1.16 Glucose 240 H Calcium 8.9 - Imaging and Cardiology Chest Xray: report reviewed (possible infiltrate) Echo: report reviewed (Normal LVEF, mild , mild PHTN) - EKG Interpretation EKG results cardiology: other (Telemetry reviewed, average HR 111 bpm, 20 beats NSVT, lots of artifact) - VTE Documentation of Mechanical Device: Intermittent pneumatic compression device Consult Discharge Plan - Plan Referrals: Garth Little DO [Primary Care Provider] -
[2017-08-08] MEDS ORDERED: Isovue-370 500 ML INFUS..BTL IV ONE (11:17)
[2017-08-08] MEDS: Piperacillin/Tazobactam 3.375 GM in 0.9 % Sodium Chloride Mini Bag 100 ML IVPB SCH ×2 (12:20→20:21)
[2017-08-08] MEDS: levoFLOXacin 500 MG TABLET PO SCH (16:48)
[2017-08-08] MEDS: Insulin DETEMIR 100 UNIT/ML X5UNITS SQ SCH (20:22)
[2017-08-09] MEDS: Ipratropium/Albuterol Neb 3 ML IH SCH ×5 (03:22→19:50)
[2017-08-09] MEDS ORDERED: *HR* LORazepam 2 MG/ML VIAL IVP ONE (03:26)
[2017-08-09] MEDS: Piperacillin/Tazobactam 3.375 GM in 0.9 % Sodium Chloride Mini Bag 100 ML IVPB SCH ×3 (04:06→19:37)
[2017-08-09] MEDS: Pantoprazole 40 MG VIAL IVP SCH ×2 (06:22→16:49)
[2017-08-09 06:29] LABS: Basophils % 0.1 %; Eosinophils # 0.3 K/mcL (0.0-0.6); Eosinophils % 2.7 %; Hematocrit 28.6 % (37.5-50.1); Immature Granulocytes % 0.8 % (0-4); Lymphocytes # 1.5 K/mcL (0.6-4.6); Lymphocytes % 12.6 %; Mean Corpuscular HGB Conc 31.5 g/dL (31.6-35.5); Mean Corpuscular Hemoglobin 29.9 pg (28.0-33.3); Mean Platelet Volume 9.5 fL (9.4-12.4); Monocytes # 1.1 K/mcL (0.0-1.3); Monocytes % 8.8 %; Nucleated Red Blood Cells 0.3 /100 WBC (0); Platelet Count 208 K/mcL (140-400); Red Blood Count 3.01 M/mcL (4.19-5.50); Red Cell Distribution Width 18.4 % (11.5-14.5)
[2017-08-09 06:49] LABS: BUN/Creatinine Ratio 14 (6-26); Blood Urea Nitrogen 18 mg/dL (8-23); Calcium 8.9 mg/dL (8.6-10.3); Carbon Dioxide 25 mEq/L (23-29); Chloride 116 mEq/L (98-107); Glucose 224 mg/dL (70-105); Osmolality,Calculated 315 (280-300); Potassium 4.2 mEq/L (3.5-5.1); Sodium 148 mEq/L (136-145); eGFR For African Americans > 60 (> 60); eGFR For Non-African Americans 54 (> 60)
[2017-08-09] MEDS ORDERED: D5% in Water 1,000 ML IVC SCH ×2 (07:30→23:45)
[2017-08-09] MEDS: Acetylcysteine 10% 2 ML INHSOL IH SCH ×2 (07:36→16:02)
--- NOTE | 2017-08-09 07:50 | Internal Med Progress Note ---
Date of Encounter: 08/09/17 Time of Encounter: 07:30 - Assessment and plan (1) Afib Current Visit: Yes Status: Acute Assessment and plan: A fib with RVR. Holding anticoagulation 2/2 to GI bleed. Pt's HR still elevated after resuming lopressor. Added po cardizem to regimen. Patient was restarted on cardizem drip in last 24hrs 2/2 to afib with rvr. We'll attempt to wean off today. Seen by cardiology who think underlying sepsis may be contributing to elevated heart rate. Continue zosyn. plan for 3 -5 day course. HR is 88 this am. Palliative care consulted. Patient will be discharged to [facility] once medical issues are stable. Qualifiers: Atrial fibrillation type: persistent Qualified Code(s): I48.1 - Persistent atrial fibrillation (2) Sepsis Current Visit: Yes Status: Acute Assessment and plan: Sepsis with UTI and HCAP. Seen by ID. Completed course of cefepime initially. Possibly new HCAP developing. CXR showed new infiltrate and patient had a mild leukocytosis. CT showed new right sided pneumonia in last 24hrs. Continue zosyn and repeat cultures. Mucomyst added to nebs treatment due to congestion Qualifiers: Sepsis type: sepsis due to unspecified organism Qualified Code(s): A41.9 - Sepsis, unspecified organism (3) Pneumonia Current Visit: Yes Status: Acute Assessment and plan: Query HCAP. see management for sepsis Qualifiers: Qualified Code(s): J18.9 - Pneumonia, unspecified organism (4) Acute upper GI bleed Current Visit: Yes Status: Acute Assessment and plan: GI following. D/C protonix drip and start on BID PPI. Hemgolobin stable. Per GI , no indication for endoscopy at this time. Will start on a diet. Plan to restart anticoagulation if clear by GI. Spoke with GI again today 08/09 who will reassess for possible endoscopy/anticoagulation (5) Acute metabolic encephalopathy Current Visit: Yes Status: Acute Assessment and plan: His delirium might be due to acute matabolic encephalopathy as well as with dementia vs UTI and HCAP sepsis. Continue fluids and supportive care. CT head came back WNL x 2 (6) Diabetes mellitus with neuropathy Current Visit: Yes Status: Acute Assessment and plan: ISS and ADA diet when pt is fully awake ACHS accuchecks Qualifiers: Diabetes mellitus type: type 2 Diabetes mellitus intermediate teacher insulin use: unspecified mcc insulin use status Qualified Code(s): E11.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, unspecified (7) Hyponatremia Current Visit: Yes Status: Acute Assessment and plan: Hyponatremia which has resolved and patient is now hypernatremic. Patient has been started on free water. Monitor sodium levels (8) Elevated troponin Current Visit: Yes Status: Acute Assessment and plan: Trops on admission 0.77.. trended down No CP Resumed home meds - ASA, Statin and BB 2D echo showed no acute findings. Etiology likely 2/2 to demand ischemia (9) VIRIDIANA (acute kidney injury) Current Visit: Yes Status: Resolved Assessment and plan: Due to dehydration improving cont gentle IVF avoid nephro toxic meds (10) Elevated INR Current Visit: Yes Status: Acute Assessment and plan: patient has INR of 8.0 on admission most likely due to nutritional def / dehydration / VIRIDIANA Since he just had hematemesis and Hb dropped down to 10.7 gave him 10mg IV Vit K Also ordered 2 U FFP cont holding Coumadin check INR closely. INR down to 1.4 s/p vitamin K and FFP. Continue to hold anticoagulation until cleared by GI (11) High ankle sprain of right lower extremity Current Visit: Yes Status: Acute Assessment and plan: previous worked up a gonzalez, no fracture - as per family however X ray of ankle here showed fractures of the medial malleolus and distal fibula Has boot on and podiatry recommened outpatient follow up in one week after discharge for repeat xrays Qualifiers: Encounter type: initial encounter Qualified Code(s): S93.431A - Sprain of tibiofibular ligament of right ankle, initial encounter (12) Hypothyroid Current Visit: Yes Status: Acute Assessment and plan: continue home Rx Qualifiers: Hypothyroidism type: unspecified Qualified Code(s): E03.9 - Hypothyroidism , unspecified (13) CHF (congestive heart failure) Current Visit: Yes Status: Chronic Assessment and plan: Has diastolic CHF Not in exacerbation resumed home meds except diuretics Qualifiers: Heart failure type: unspecified Heart failure chronicity: unspecified Qualified Code(s): I50.9 - Heart failure, unspecified (14) Hypernatremia Current Visit: Yes Status: Acute Assessment and plan: See plan for hyponatremia. On free water (15) Hypertension Current Visit: Yes Status: Acute Assessment and plan: currently stable, continue home rx Qualifiers: Hypertension type: essential hypertension Qualified Code(s): I10 - Essential (primary) hypertension (16) Goals of care, counseling/discussion Current Visit: Yes Status: Acute Assessment and plan: is PoA. [facility] [phone]. has PoA and DNR/DNI/CCA paper work. (17) Fall Current Visit: Yes Status: Acute Assessment and plan: un witness fall. Patient is high risk due to INR of 8.0, confusion and PMHx. CT of head - no acute ICH Fall precautions Qualifiers: Encounter type: initial encounter Qualified Code(s): W19.XXXA - Unspecified fall, initial encounter (18) DVT prophylaxis Current Visit: Yes Status: Acute Assessment and plan: EPCD. Coumadin currently held - Time Spent With Patient Total time spent is greater than 50% in coordination of care (as documented) at patient's floor/unit and/or counseling patient: - Subjective Interval history: No acute events overnight. Had CT angio done - Constitutional Vitals: Temp Pulse Resp BP Pulse Ox 99.4 F 88 23 129/76 98 08/09/17 03:46 08/09/17 03:46 08/09/17 04:28 08/09/17 03:46 08/09/17 04:28 General appearance: Present: cooperative, A&O X 3, obese, answers questions appropriately - Head Head exam: Present: atraumatic, normocephalic - Eye Eye exam: Present: PERRL, conjuntiva pink, sclera anicteric Pupils: Present: PERRL - Neck Neck exam general surgery: Present: supple, trachea midline. Absent: lymphadenopathy - Respiratory Respiratory exam: Present: CTAB. Absent: accessory muscle use, rales, rhonchi, wheezes Additional comments: Sounds congested. coarse breath sounds - Cardiovascular Cardiovascular exam: Present: +S1, +S2. Absent: diastolic murmur, gallop, rubs , systolic murmur Additional comments: irregularly irregular - GI/Abdominal GI/Abdominal exam: Present: normal bowel sounds, soft, no peritoneal signs. Absent: distended, tenderness - Extremities Exam Extremities exam: Present: warm, radial pulses palpable and symmetrical. Absent : calf tenderness, cyanotic, pedal edema - Neurological Exam Neurological exam: Present: CN II-XII intact, oriented X3, no focal deficits. Absent: pronater drift, facial droop, speech deficit - Skin Skin exam: Present: dry, intact Internal Medicine: Result - Labs CBC & Chem 7: 08/09/17 06:01 08/09/17 06:01 Labs: Short CBC 08/09/17 Range/Units 06:01 WBC 12.0 H (4.3-11.1) K/mcL Hgb 9.0 L (12.9-16.9) g/dL Hct 28.6 L (37.5-50.1) % Plt Count 208 (140-400) K/mcL Neutrophils # 9.0 H (1.6-8.9) K/mcL BMP 08/09/17 06:01 Sodium 148 H Potassium 4.2 Chloride 116 H Carbon Dioxide 25 BUN 18 Creatinine 1.28 Glucose 224 H Calcium 8.9 - ABG Interpretation ABG results: PT/INR, D-dimer PT 15.6 Seconds (9.4-12.1) H 08/06/17 12:52 - Impressions Impressions Chest CTA 08/08/17 11:17 IMPRESSION: No gross findings of pulmonary embolism. Bilateral airway thickening and mucoid deposition, suggestive of airways disease. Asymmetric right lower lobe consolidation is seen, for which superimposed pneumonia could be considered in the appropriate clinical setting. Left upper lobe nodules are not markedly changed as compared to prior examination, favoring an etiology such as granulomatous disease. Atherosclerosis, including coronary artery calcification. Distended stomach. If patient is symptomatic, nasogastric tube could be considered. D/ / Nilson Maza MD / Nilson Maza MD Interpreting Provider: Nilson Maza MD Chest X-Ray 08/09/17 00:18 IMPRESSION: No acute disease. D/ / Juanito Saenz MD / Juanito Saenz MD Interpreting Provider: Juanito Saenz MD - VTE Documentation of Mechanical Device: Intermittent pneumatic compression device Consult Discharge Plan - Plan Referrals: Garth Little DO [Primary Care Provider] -
[2017-08-09] MEDS: Insulin LISPRO 300 UNITS/3 ML VIAL SQ SCH ×4 (08:10→20:33)
[2017-08-09] MEDS: Diltiazem CD (24hr) 240 MG CAPSULE PO SCH (08:14)
[2017-08-09] MEDS: Aspirin 81 MG TAB.CHEW PO SCH (08:14)
[2017-08-09 08:52] LABS: INR 1.6; Prothrombin Time 17.7 Seconds (9.4-12.1)
--- NOTE | 2017-08-09 11:46 | Cardiology Progress Note ---
Date of Encounter: 08/09/17 Time of Encounter: 10:00 Assessment and Plan (1) Elevated troponin Current Visit: Yes Status: Acute Troponin elevated on presentation in setting of VIRIDIANA, hyponatremia. Do not suspect ACS. No acute findings on ECG. Normal LVEF by echo. Continue aspirin , statin, BB. (2) Elevated INR Current Visit: Yes Status: Acute Presented with supratherapeutic INR, now normalized. Patient tolerating aspirin. 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 Appears he may be a fall risk and presently he has clinically deteriorated. Continue aspirin for now. (3) Afib Current Visit: Yes Status: Acute Reported longstanding hx of atrial fibrillation presented with rate controlled atrial fibrillation. Heart rates were recently uncontrolled in setting of possible developing infectious etiology. Overnight, average heart rates much better, in the 90's. Recommend continuing both lopressor and cardizem for rate control. Suspect that once underlying infection is treated/improves, so too will heart rates. In regards to anticoagulation, coumadin was held on admission due to supratherapeutic INR, 8.0. Recent hospitalization with sepsis, d/c'ed on po antibiotics, unclear when INR last checked as outpt. GI has been following. Now on aspirin. Would appreciate GI recommendations for prison anticoagulation from their standpoint which can be done prior to discharge or as an outpatient. He has clinically deteriorated and is potentially a fall risk. Continue aspirin for now. Qualifiers: Atrial fibrillation type: persistent Qualified Code(s): I48.1 - Persistent atrial fibrillation Discussion w patient/family: The assessment and plan as outlined above was discussed with the patient's who expressed understanding and agreement. All questions were answered. Thank you for involving us in the care of your patient. Please call with any questions. Subjective Principal diagnosis: AMS Interval history: Patient confused today. Conversing very little. Not oriented to place or time. Somewhat diaphoretic. Low grade temperatures overnight. at bedside. Objective Vital Signs, Last 4 Hours Temp Pulse Resp BP Pulse Ox 08/09/17 07:50 98.9 F 93 20 121/64 98 General: Other (No acute distress, oriented to person only, confused/mumbling, somewhat diaphoretic) HEENT: Atraumatic, Normocephaly Neck: No JVD Cardiac: Other (irregularly irregular, normal rate, no murmur) Lungs: Other (poor inspiratory effort) Neuro: Other (disoriented) Abdomen: Soft, Non-Tender, Other (soft bowel sounds) Extremities: No Edema (Right side in boot) Results 08/09/17 06:01 08/09/17 06:01 Lab Results 08/09/17 08/09/17 08/09/17 06:01 06:01 08:38 WBC 12.0 H Hgb 9.0 L Hct 28.6 L Plt Count 208 INR 1.6 Sodium 148 H Potassium 4.2 Chloride 116 H Carbon Dioxide 25 BUN 18 Creatinine 1.28 Glucose 224 H Calcium 8.9 - Imaging and Cardiology Other Results: CTA reviewed - EKG Interpretation EKG results cardiology: other (Overnight telemetry demonstrates average HR 91 bpm, no concerning dysrhythmia) - VTE Documentation of Mechanical Device: Intermittent pneumatic compression device Consult Discharge Plan - Plan Referrals: Garth Little DO [Primary Care Provider] -
[2017-08-09] MEDS: Ondansetron 4 MG/2 ML VIAL IVP PRN (15:23)
[2017-08-09] MEDS: Insulin DETEMIR 100 UNIT/ML X5UNITS SQ SCH (20:34)
--- NOTE | 2017-08-09 23:54 | Event Note ---
Date of Encounter: 08/09/17 Time of Encounter: 19:56 Notified by pts. nurse WESLEY Frederick that pts. abdomen was firm and distended. No documented BM since last night. Reports active bowel sounds in all four quadrants. CT of the abdomen/pelvis ordered to r/o blockage prior to stool softener/stimulation. Will await results.
[2017-08-10] MEDS: Ipratropium/Albuterol Neb 3 ML IH SCH ×7 (00:01→23:31)
[2017-08-10] MEDS: Piperacillin/Tazobactam 3.375 GM in 0.9 % Sodium Chloride Mini Bag 100 ML IVPB SCH ×3 (04:23→20:48)
[2017-08-10 04:29] LABS: Basophils % 0.2 %; Eosinophils # 0.2 K/mcL (0.0-0.6); Eosinophils % 2.4 %; Hemoglobin 7.9 g/dL (12.9-16.9); Immature Granulocytes % 0.6 % (0-4); Lymphocytes % 11.4 %; Mean Corpuscular HGB Conc 30.4 g/dL (31.6-35.5); Mean Corpuscular Volume 95.6 fL (83.0-100.0); Mean Platelet Volume 9.9 fL (9.4-12.4); Monocytes # 0.8 K/mcL (0.0-1.3); Monocytes % 8.4 %; Neutrophils # 6.9 K/mcL (1.6-8.9); Platelet Count 185 K/mcL (140-400); Red Blood Count 2.72 M/mcL (4.19-5.50); Red Cell Distribution Width 18.6 % (11.5-14.5)
[2017-08-10 04:51] LABS: BUN/Creatinine Ratio 14 (6-26); Blood Urea Nitrogen 14 mg/dL (8-23); Calcium 8.6 mg/dL (8.6-10.3); Carbon Dioxide 27 mEq/L (23-29); Chloride 114 mEq/L (98-107); Glucose 212 mg/dL (70-105); Osmolality,Calculated 307 (280-300); Potassium 3.9 mEq/L (3.5-5.1); Sodium 145 mEq/L (136-145); eGFR For African Americans > 60 (> 60); eGFR For Non-African Americans > 60 (> 60)
[2017-08-10] MEDS: Pantoprazole 40 MG VIAL IVP SCH ×2 (06:03→17:35)
[2017-08-10] MEDS: Insulin LISPRO 300 UNITS/3 ML VIAL SQ SCH ×4 (08:45→20:26)
[2017-08-10] MEDS: Sennosides/Docusate Sodium TABLET PO SCH ×2 (08:47→20:47)
[2017-08-10] MEDS: Aspirin 81 MG TAB.CHEW PO SCH (08:48)
[2017-08-10] MEDS: Diltiazem CD (24hr) 240 MG CAPSULE PO SCH (08:51)
--- NOTE | 2017-08-10 12:54 | Internal Med Progress Note ---
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 Patient has been started on free water. Monitor sodium levels Na today 145 Continue free water D/C IVF (3) Elevated troponin Current Visit: Yes Status: Acute Assessment and plan: Trops on admission 0.77.. trended down No CP Resumed home meds - ASA, Statin and BB 2D echo showed no acute findings. Etiology likely 2/2 to demand ischemia (4) VIRIDIANA (acute kidney injury) Current Visit: Yes Status: Resolved Assessment and plan: Due to dehydration Resolved D/C IVF (5) Elevated INR Current Visit: Yes Status: Resolved Assessment and plan: Resolved INR 1.6 08/09 Admitting INR 8.0 (6) High ankle sprain of right lower extremity Current Visit: Yes Status: Acute Assessment and plan: previous worked up a gonzalez, no fracture - as per family however X ray of ankle here showed fractures of the medial malleolus and distal fibula Has boot on and podiatry recommened outpatient follow up in one week after discharge for repeat xrays Qualifiers: Encounter type: initial encounter Qualified Code(s): S93.431A - Sprain of tibiofibular ligament of right ankle, initial encounter (7) Hypothyroid Current Visit: Yes Status: Chronic Assessment and plan: continue home Rx Qualifiers: Hypothyroidism type: unspecified Qualified Code(s): E03.9 - Hypothyroidism , unspecified (8) Afib Current Visit: Yes Status: Chronic Assessment and plan: A fib with RVR. Holding anticoagulation 2/2 to GI bleed. Continue Lopessor,Diltiazem no anticoagulation due to Suspected GIB Qualifiers: Atrial fibrillation type: persistent Qualified Code(s): I48.1 - Persistent atrial fibrillation (9) CHF (congestive heart failure) Current Visit: Yes Status: Chronic Assessment and plan: Has diastolic CHF Not in exacerbation resumed home meds except diuretics Qualifiers: Heart failure type: unspecified Heart failure chronicity: unspecified Qualified Code(s): I50.9 - Heart failure, unspecified (10) Hypertension Current Visit: Yes Status: Chronic Assessment and plan: currently stable, continue home rx Qualifiers: Hypertension type: essential hypertension Qualified Code(s): I10 - Essential (primary) hypertension (11) Goals of care, counseling/discussion Current Visit: Yes Status: Chronic Assessment and plan: is PoA. [facility] [phone]. has PoA and DNR/DNI/CCA paper work. (12) Fall Current Visit: Yes Status: Acute Assessment and plan: un witness fall. Patient is high risk due to INR of 8.0, confusion and PMHx. CT of head - no acute ICH Fall precautions Qualifiers: Encounter type: initial encounter Qualified Code(s): W19.XXXA - Unspecified fall, initial encounter (13) DVT prophylaxis Current Visit: Yes Status: Acute Assessment and plan: EPCD. Coumadin currently held (14) Acute metabolic encephalopathy Current Visit: Yes Status: Acute Assessment and plan: Possibly delirium Continue conservative management Avid benzos and haldol low dose risperidone if persistent CT head came back WNL x 2 (15) Acute upper GI bleed Current Visit: Yes Status: Acute Assessment and plan: GI following. Continue BID PPI. Hb continues to drop Now 7.9 For EGD a.m, GI reconsulted on phone today (16) Sepsis Current Visit: Yes Status: Acute Assessment and plan: Sepsis with UTI and HCAP. Seen by ID. Completed course of cefepime initially. Possibly new HCAP developing. CXR showed new infiltrate CT showed new right sided pneumonia Continue zosyn Continue incentive spirometry and O2 supplementation No leukocytosis (17) Pneumonia Current Visit: Yes Status: Acute Assessment and plan: Query HCAP. see management for sepsis Qualifiers: Pneumonia type: due to unspecified organism Laterality: unspecified laterality Lung location: unspecified part of lung Qualified Code(s): J18.9 - Pneumonia, unspecified organism (18) Hypernatremia Current Visit: Yes Status: Acute Assessment and plan: See plan for hyponatremia. On free water (19) Anemia Current Visit: Yes Status: Acute Assessment and plan: hgb on admissions 11.6. Now 7.9 RptHb ordered for pm,with type and screen GI consulted on phone For EGD a.m NPO MN No melena at this time Continue to monitor Qualifiers: Anemia type: unspecified type Qualified Code(s): D64.9 - Anemia, unspecified - Time Spent With Patient Total time spent is greater than 50% in coordination of care (as documented) at patient's floor/unit and/or counseling patient: - Subjective Interval history: Patient is seen and evaluated at the bedside with his spouse this morning, he is somnolent but able to be awakened, states his name, date of breath, today's date, and his location. He is alert and oriented 3 upon awakening. The patient was admitted following a mechanical fall with a nondisplaced right fibular fracture, supratherapeutic INR, hyponatremia, E coli UTI, staph epidermidis bacteremia, elevated troponins, acute kidney injury, most of which have resolved. He has a medical history of hypertension, atrial fibrillation. The patient also developed pneumonia inpatient and is currently on Zosyn and levofloxacin. The patient developed hematemesis and is on Protonix twice a day. Hemoglobin today noted to be 7.9 was greater than 10 on admission. No melena stools, patient is currently constipated. Lactate is normal. Chem and CBC otherwise normal Gastroenterology has been consulted for possible endoscopy. The patient's pain discharged. He is otherwise hemodynamically stable. Family at the bedside educated about the plan today. - Constitutional Vitals: Temp Pulse Resp BP Pulse Ox 99.3 F 89 16 101/60 95 08/10/17 10:40 08/10/17 10:40 08/10/17 10:40 08/10/17 10:40 08/10/17 10:40 General appearance: Present: cooperative, A&O X 3, pleasant, obese, answers questions appropriately - Head Head exam: Present: atraumatic, normocephalic - Eye Eye exam: Present: PERRL, conjuntiva pink, sclera anicteric Pupils: Present: PERRL - Neck Neck exam general surgery: Present: supple, trachea midline. Absent: lymphadenopathy - Respiratory Respiratory exam: Present: rales, rhonchi - Cardiovascular Cardiovascular exam: Present: RRR, +S1, +S2. Absent: diastolic murmur, gallop, rubs, systolic murmur - GI/Abdominal GI/Abdominal exam: Present: normal bowel sounds, soft, no peritoneal signs. Absent: distended, tenderness - Extremities Exam Extremities exam: Present: warm, radial pulses palpable and symmetrical. Absent : calf tenderness, cyanotic, pedal edema Additional comments: R leg in soft cast. - Neurological Exam Neurological exam: Present: alert, CN II-XII intact, oriented X3, no focal deficits. Absent: pronater drift, facial droop, speech deficit - Skin Skin exam: Present: dry, intact Internal Medicine: Result - Labs CBC & Chem 7: 08/10/17 04:00 08/10/17 04:00 Labs: Short CBC 08/10/17 Range/Units 04:00 WBC 9.0 (4.3-11.1) K/mcL Hgb 7.9 L (12.9-16.9) g/dL Hct 26.0 L (37.5-50.1) % Plt Count 185 (140-400) K/mcL Neutrophils # 6.9 (1.6-8.9) K/mcL BMP 08/10/17 04:00 Sodium 145 Potassium 3.9 Chloride 114 H Carbon Dioxide 27 BUN 14 Creatinine 1.00 Glucose 212 H Calcium 8.6 - ABG Interpretation ABG results: PT/INR, D-dimer PT 17.7 Seconds (9.4-12.1) H 08/09/17 08:38 - Impressions Impressions Abdomen/Pelvis CT 08/10/17 20:09 IMPRESSION: 1. No acute findings identified in the abdomen and pelvis. Assessment limited due to respiratory motion. 2. Colonic diverticulosis D/ / 08/10/2017 07:22:17 Jose Kaur MD / jose Interpreting Provider: Jose Kaur MD - VTE Documentation of Mechanical Device: Intermittent pneumatic compression device Consult Discharge Plan - Plan Referrals: Garth Little DO [Primary Care Provider] - (will go to [facility])
--- NOTE | 2017-08-10 14:52 | Palliative - Consult Note ---
Date of Encounter: 08/10/17 Time of Encounter: 12:30 - Assessment and Plan (1) VIRIDIANA (acute kidney injury) Current Visit: Yes Status: Resolved Assessment and plan: BUN 14, Creatinine 1.0. Nephrology signed off as VIRIDIANA improved with resolution of dehydration. (2) COPD (chronic obstructive pulmonary disease) Current Visit: Yes Status: Acute Assessment and plan: Patient reports some dyspnea with activity. Oxygen saturation 95% on 3L NC. Qualifiers: COPD type: unspecified COPD Qualified Code(s): J44.9 - Chronic obstructive pulmonary disease, unspecified (3) CHF (congestive heart failure) Current Visit: Yes Status: Chronic Qualifiers: Heart failure type: unspecified Heart failure chronicity: unspecified Qualified Code(s): I50.9 - Heart failure, unspecified (4) GERD (gastroesophageal reflux disease) Current Visit: Yes Status: Acute Qualifiers: Esophagitis presence: esophagitis presence not specified Qualified Code(s) : K21.9 - Gastro-esophageal reflux disease without esophagitis (5) Goals of care, counseling/discussion Current Visit: Yes Status: Chronic Assessment and plan: I spent 60 minutes face to face iwth the patient, of which more than 50%, 30 minutes) was spend in the counseling and coordination of care, including discharge planning and understanding of current medical state. Met with patient 's at length regarding plans to discharge to [facility] at discharge for continued rehab. CODE STATUS established at DNR CCA/DNI. Patient's reports plan to have scope tomorrow and re-evaluate for stability for discharge planning. Patient participated in physical therapy during conversation. Palliative care will follow up tomorrow. (6) Elevated troponin I level Current Visit: Yes Status: Acute (7) Sepsis Current Visit: Yes Status: Acute Assessment and plan: WBC improved to 9.0. Continue Zosyn as ordered. Qualifiers: Sepsis type: sepsis due to unspecified organism Qualified Code(s): A41.9 - Sepsis, unspecified organism Palliative-CN HPI - Data of Consult Patient: new to practice Consult date: 08/08/17 Requesting Physician: Neno Samayoa MD Primary Care Provider: Garth Little - Consult Narrative Palliative Care/Comfort Measures: Palliative care Reason for consult: Goals of care clarification History of present illness: Mr. Mack is a 82 year old male Arrived to [facility] ER on 08/03/17 for weakness/ AMS. PMH of UTI, CHF, AFib, COPD, DM, recent hx of right ankle injury sprain. Presented for AMS and generalized fatigue. CXR: No acute process and findings suggestive of COPD. ECG resulted with: ATRIAL FIBRILLATION, LOW QRS VOLTAGE IN EXTREMITY LEADS. Patient admitted to [facility] for elevated troponin, elevated INR, VIRIDIANA, high ankle sprain of BLE, Anemia, Hyponatremia, Leukocytosis, DM, Hypothyroid, Afib, COPD, CHF, GERD, HTN and Confusion. CT of head: Motion artifact limits overall exam; global atrophy and chronic microvascular ischemic changes, no acute intracranial abnormality. Nephrology consulted: hypovolemic, hyponatremic and continuing to follow patient initially; signed off once hyponatremia corrected. Cardiology consulted: mild elevation Troponin, possible diastolic CHF; continue medical management, signed off. Echo completed. Podiatry consulted: traumatic ecchymosis of right ankle; non weight bearing RLE- compression wrap with cast padding. Right ankle xray: fractures of the medial malleolus and distal fibula, no dislocation; no fractures seen in right foot. GI Consulted: recommended further endoscopic workup if develops active bleeding. ID consulted: recommended treating UTI with Bactrim and signed off. Barium Swallow performed: Recommend nectar thick liquids. Repeat head CT: Stable CT scan of the head without acute intracranial abnormality and generalized cortical atrophy and chronic microvascular ischemic changes. Continued medical management by primary team for duration of hospital stay to also include acute metabolic encephalopathy. Palliative care consulted for clarification of goals of care. Patient resting quietly with eyes closed upon arrival for assessment. Patients (Nita) and grandson (Grayson) present on arrival. Patient is alert and oriented, denies pain, nausea, vomiting, anxiety, or difficulty with bowel movements. Patient reports some dyspnea with movement; oxygen saturation 95% on 3L. Patients requested discussing goals of care outside of room as patient was trying to rest. Family reports recent delirium related to extended hospital stay, patient was seeing lizards on the wall yesterday. CC: Neno Samayoa MD Past Med Surg Social Fam HX - Past Medical History Medical history: atrial fibrillation, COPD, coronary artery disease, diabetes, hyperlipidemia, hypertension Psychiatric history: no psych history - Past Surgical History Surgical History: cancer surgery, prostatectomy - Social History Smoking Status: Former smoker Alcohol use: none Drug use: none Medications and Allergies Atorvastatin Calcium [Lipitor] 80 mg PO HS 08/03/17 [History] Budesonide/Formoterol 160/4.5 [Symbicort 160/4.5] 2 puff IH BIDR 08/03/17 [ History] Insulin DETEMIR [Levemir Flextouch] 40 - 50 unit SQ HS 08/03/17 [History] Insulin LISPRO [Humalog Kwikpen U-100] 0 unit SQ TID PRN 08/03/17 [History] Levothyroxine Sodium [Levoxyl] 175 mcg PO DAILY 08/03/17 [History] Losartan Potassium [Cozaar] 50 mg PO DAILY 08/03/17 [History] Metoprolol [Lopressor] 50 mg PO BID 08/03/17 [History] Metoprolol [Lopressor] 50 mg PO BID 08/03/17 [History] Omeprazole [PriLOSEC] 20 mg PO DAILY 08/03/17 [History] Potassium Chloride [K-Tab ER] 80 meq PO BID 08/03/17 [History] Spironolactone [Aldactone] 25 mg PO DAILY 08/03/17 [History] Tiotropium [Spiriva] 18 mcg IH DAILY 08/03/17 [History] Torsemide [Demadex] 100 mg PO BID 08/03/17 [History] Warfarin [Coumadin] 8.5 mg PO DAILY 08/03/17 [History] metOLazone [Metolazone] 10 mg PO DAILY 08/03/17 [History] 3 Allergy/AdvReac Type Severity Reaction Status Date / Time metformin [From Glucophage] Allergy Diarrhea Verified 12/11/14 11:57 Sulfa (Sulfonamide Allergy See Verified 08/05/17 17:59 Antibiotics) Comments - Constitutional Constitutional ROS PAL: frequent falls, lethargy, weight loss - EENT Ears: decreased hearing - Cardiovascular Cardiovascular ROS: irregular heart rhythm, no leg edema - Respiratory Respiratory: dyspnea, dyspnea on exertion - Gastrointestinal Gastrointestinal: coffee ground emesis, no abdominal pain - Musculoskeletal Musculoskeletal ROS IM: joint swelling - Neurological Neurological ROS: frequent falls - Psychiatric Psychiatric general PM: no anxiety Palliative Care-Exam - Constitutional Vitals: Temp Pulse Resp BP Pulse Ox 99.3 F 89 16 101/60 95 08/10/17 10:40 08/10/17 10:40 08/10/17 10:40 08/10/17 10:40 08/10/17 10:40 General appearance: Present: no acute distress, obese - Head Head Exam: Present: atraumatic, normal inspection - Expanded Head Exam Head exam expanded IM: Absent: general tenderness - Eye Eye exam: Present: EOMI, normal appearance, PERRL. Absent: periorbital swelling , periorbital tenderness Pupils: Present: normal accommodation, PERRL - ENT ENT exam: Present: mucous membranes dry - Expanded ENT Exam Mouth Exam: Absent: drooling - Neck Neck exam: Present: full ROM, normal inspection - Respiratory Respiratory exam: Present: CTAB. Absent: accessory muscle use, respiratory distress - Cardiovascular Cardiovascular exam: Present: irregular rhythm - Expanded Cardiovascular Exam Peripheral pulses: 2+: Radial (L), Radial (R), Posterior Tibialis (L), Dorsalis Pedis (L) PM - GI/Abdominal Exam GI/Abdominal exam: Present: diminished bowel sounds, distended. Absent: tenderness - Rectal Rectal Exam: Present: deferred - Catheter Type: Urethral ([place]) - Extremities Exam Extremities exam: Absent: normal inspection (RLE wrapped as has fracture.) - Neurological Exam Neurological exam: Present: alert, oriented X3 - Expanded Neurological Exam Patient oriented to: Present: person, place, time Coma Scale Eye Opening: To Voice Coma Scale Motor Response: Obeys Commands Coma Scale Verbal Response: Oriented Coma Scale Total: 14 - Psychiatric Psychiatric exam: Present: flat affect Internal Medicine - CN: Reslt - Labs CBC & Chem 7: 08/10/17 04:00 08/10/17 04:00 Labs: Short CBC 08/10/17 Range/Units 04:00 WBC 9.0 (4.3-11.1) K/mcL Hgb 7.9 L (12.9-16.9) g/dL Hct 26.0 L (37.5-50.1) % Plt Count 185 (140-400) K/mcL Neutrophils # 6.9 (1.6-8.9) K/mcL BMP 08/10/17 04:00 Sodium 145 Potassium 3.9 Chloride 114 H Carbon Dioxide 27 BUN 14 Creatinine 1.00 Glucose 212 H Calcium 8.6 - ABG Interpretation ABG results: PT/INR, D-dimer PT 17.7 Seconds (9.4-12.1) H 08/09/17 08:38 - Impressions Impressions Abdomen/Pelvis CT 08/10/17 20:09 IMPRESSION: 1. No acute findings identified in the abdomen and pelvis. Assessment limited due to respiratory motion. 2. Colonic diverticulosis D/ / 08/10/2017 07:22:17 Jose Kaur MD / jose Interpreting Provider: Jose Kaur MD Consult Discharge Plan - Plan Referrals: Garth Little DO [Primary Care Provider] - (will go to [facility]) Palliative Quality Palliative Quality: Screen for Code Status: Yes, Screen for Goals of Care: Yes, Screen for Pain: Yes, If Pain Regimen Started, Initiate Bowel Regimen: NA, Screen for Nausea/Vomitting: Yes Code Status: 08/03/17 06:15 Resuscitation Status: Active [RES] Routine Comment: Resuscitation Status: [id number]
[2017-08-10] MEDS ORDERED: Acetaminophen 325 MG TABLET PO PRN (15:19)
[2017-08-10 16:10] LABS: Hematocrit 26.7 % (37.5-50.1); Hemoglobin 8.4 g/dL (12.9-16.9)
[2017-08-10] MEDS: Insulin DETEMIR 100 UNIT/ML X5UNITS SQ SCH (20:49)
[2017-08-11] MEDS: Ipratropium/Albuterol Neb 3 ML IH SCH ×2 (03:48→07:27)
[2017-08-11] MEDS: Piperacillin/Tazobactam 3.375 GM in 0.9 % Sodium Chloride Mini Bag 100 ML IVPB SCH ×3 (04:25→21:43)
[2017-08-11 04:41] LABS: Basophils % 0.3 %; Eosinophils # 0.2 K/mcL (0.0-0.6); Eosinophils % 2.7 %; Hematocrit 25.5 % (37.5-50.1); Hemoglobin 8.2 g/dL (12.9-16.9); Immature Granulocytes % 0.6 % (0-4); Lymphocytes % 12.7 %; Mean Corpuscular HGB Conc 32.2 g/dL (31.6-35.5); Mean Corpuscular Hemoglobin 30.6 pg (28.0-33.3); Mean Corpuscular Volume 95.1 fL (83.0-100.0); Mean Platelet Volume 9.9 fL (9.4-12.4); Monocytes # 0.6 K/mcL (0.0-1.3); Monocytes % 7.9 %; Neutrophils # 5.9 K/mcL (1.6-8.9); Nucleated Red Blood Cells 0.3 /100 WBC (0); Platelet Count 184 K/mcL (140-400); Red Blood Count 2.68 M/mcL (4.19-5.50); Red Cell Distribution Width 18.6 % (11.5-14.5); Segmented Neutrophils % 75.8 %
[2017-08-11 04:59] LABS: BUN/Creatinine Ratio 12 (6-26); Blood Urea Nitrogen 11 mg/dL (8-23); Calcium 8.7 mg/dL (8.6-10.3); Carbon Dioxide 29 mEq/L (23-29); Chloride 113 mEq/L (98-107); Glucose 180 mg/dL (70-105); Osmolality,Calculated 304 (280-300); Potassium 3.7 mEq/L (3.5-5.1); Sodium 145 mEq/L (136-145); eGFR For African Americans > 60 (> 60); eGFR For Non-African Americans > 60 (> 60)
[2017-08-11] MEDS: Pantoprazole 40 MG VIAL IVP SCH ×2 (06:13→17:07)
[2017-08-11] MEDS: Insulin LISPRO 300 UNITS/3 ML VIAL SQ SCH ×3 (08:44→17:42)
[2017-08-11] MEDS: Diltiazem CD (24hr) 240 MG CAPSULE PO SCH (08:45)
[2017-08-11] MEDS ORDERED: *HR* Metoprolol 5 MG/5 ML VIAL IVP ONE ×2 (11:18→11:22)
[2017-08-11] MEDS ORDERED: 0.9 % Sodium Chloride 250 ML IVC ONE (11:19)
[2017-08-11] MEDS ORDERED: 0.9 % Sodium Chloride 250 ML ONE (11:22)
[2017-08-11] MEDS ORDERED: Levalbuterol Neb 0.63 MG/3 ML IH PRN ×2 (11:32→15:02)
[2017-08-11] MEDS ORDERED: Levalbuterol Neb 0.63 MG/3 ML ONE (11:34)
[2017-08-11] MEDS: Aspirin 81 MG TAB.CHEW PO SCH (11:37)
[2017-08-11] MEDS: Sennosides/Docusate Sodium TABLET PO SCH ×2 (11:38→21:44)
--- NOTE | 2017-08-11 12:35 | Internal Med Progress Note ---
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 Patient has been started on free water. Monitor sodium levels Na today 145 Continue free water D/C IVF 08/10 (3) Elevated troponin Current Visit: Yes Status: Acute Assessment and plan: Trops on admission 0.77.. trended down No CP Resumed home meds - ASA, Statin and BB 2D echo showed no acute findings. Etiology likely 2/2 to demand ischemia (4) VIRIDIANA (acute kidney injury) Current Visit: Yes Status: Resolved Assessment and plan: Due to dehydration Resolved D/C IVF (5) Elevated INR Current Visit: Yes Status: Resolved Assessment and plan: Resolved INR 1.6 08/09 Admitting INR 8.0 Coumadin stillheld, per cardio reinitiation of coumadin is dependent on GI eval, patient is getting EGD today (6) High ankle sprain of right lower extremity Current Visit: Yes Status: Acute Assessment and plan: previous worked up a gonzalez, no fracture - as per family however X ray of ankle here showed fractures of the medial malleolus and distal fibula Has boot on and podiatry recommened outpatient follow up in one week after discharge for repeat xrays Qualifiers: Encounter type: initial encounter Qualified Code(s): S93.431A - Sprain of tibiofibular ligament of right ankle, initial encounter (7) Hypothyroid Current Visit: Yes Status: Chronic Assessment and plan: continue home Rx Qualifiers: Hypothyroidism type: unspecified Qualified Code(s): E03.9 - Hypothyroidism , unspecified (8) Afib Current Visit: Yes Status: Chronic Assessment and plan: A fib with RVR. Holding anticoagulation 2/2 to suspected GI bleed. Continue Lopessor,Diltiazem Gave 250cc this a.m for Afib with RVR Continue to monitor Qualifiers: Atrial fibrillation type: persistent Qualified Code(s): I48.1 - Persistent atrial fibrillation (9) CHF (congestive heart failure) Current Visit: Yes Status: Chronic Assessment and plan: Has diastolic CHF Will resume TOrsemide at low dose this a.m Continue to monitor Chem Qualifiers: Heart failure type: unspecified Heart failure chronicity: unspecified Qualified Code(s): I50.9 - Heart failure, unspecified (10) Hypertension Current Visit: Yes Status: Chronic Assessment and plan: currently stable, continue home rx Qualifiers: Hypertension type: essential hypertension Qualified Code(s): I10 - Essential (primary) hypertension (11) Goals of care, counseling/discussion Current Visit: Yes Status: Chronic Assessment and plan: is PoA. [facility] [phone]. has PoA and DNR/DNI/CCA paper work. (12) Fall Current Visit: Yes Status: Acute Assessment and plan: un witness fall. Patient is high risk due to INR of 8.0, confusion and PMHx. CT of head - no acute ICH Fall precautions Qualifiers: Encounter type: initial encounter Qualified Code(s): W19.XXXA - Unspecified fall, initial encounter (13) DVT prophylaxis Current Visit: Yes Status: Acute Assessment and plan: EPCD. Coumadin currently held (14) Acute metabolic encephalopathy Current Visit: Yes Status: Resolved Assessment and plan: Resolved Possibly delirium Continue conservative management Avid benzos and haldol low dose risperidone if persistent CT head came back WNL x 2 (15) Acute upper GI bleed Current Visit: Yes Status: Suspected Assessment and plan: Suspected GI following. Continue BID PPI. Hb stable at 8.4 without transfusion For EGD today (16) Sepsis Current Visit: Yes Status: Resolved Assessment and plan: Sepsis with UTI and HCAP. Seen by ID. Completed course of cefepime initially. Possibly new HCAP developing. CXR showed new infiltrate CT showed new right sided pneumonia Continue zosyn Continue incentive spirometry and O2 supplementation No leukocytosis Qualifiers: Sepsis type: sepsis due to unspecified organism Qualified Code(s): A41.9 - Sepsis, unspecified organism (17) Pneumonia Current Visit: Yes Status: Acute Assessment and plan: Query HCAP. see management for sepsis Qualifiers: Pneumonia type: due to unspecified organism Laterality: unspecified laterality Lung location: unspecified part of lung Qualified Code(s): J18.9 - Pneumonia, unspecified organism (18) Hypernatremia Current Visit: Yes Status: Resolved Assessment and plan: See plan for hyponatremia. On free water (19) Anemia Current Visit: Yes Status: Acute Assessment and plan: hgb on admissions 11.6. Stable at 8 this a.m Hx of hematemesis For EGD today No melena at this time Continue to monitor Qualifiers: Anemia type: unspecified type Qualified Code(s): D64.9 - Anemia, unspecified - Time Spent With Patient Total time spent is greater than 50% in coordination of care (as documented) at patient's floor/unit and/or counseling patient: - Subjective Interval history: Patient is seen and evaluated at the bedside with his spouse this morning, He is awake, alert and oriented 3 upon awakening. The patient was admitted following a mechanical fall with a nondisplaced right fibular fracture, supratherapeutic INR, hyponatremia, E coli UTI, staph epidermidis bacteremia, elevated troponins, acute kidney injury, most of which have resolved. He has a medical history of hypertension, atrial fibrillation. The patient also developed pneumonia inpatient and is currently on Zosyn and levofloxacin. The patient developed hematemesis and is on Protonix twice a day. he is wheezing diffusely on exam today Hb is stable at 8.4 He is awaiting EGD by GI-Confirmed from GI they are aware and following - Constitutional Vitals: Temp Pulse Resp BP Pulse Ox 99.1 F 116 24 125/71 96 08/11/17 11:08 08/11/17 11:08 08/11/17 11:45 08/11/17 11:08 08/11/17 11:45 General appearance: Present: cooperative, A&O X 3, pleasant, obese, answers questions appropriately - Head Head exam: Present: atraumatic, normocephalic - Eye Eye exam: Present: PERRL, conjuntiva pink, sclera anicteric Pupils: Present: PERRL - Neck Neck exam general surgery: Present: supple, trachea midline. Absent: lymphadenopathy - Respiratory Respiratory exam: Present: decreased breath sounds, wheezes - Cardiovascular Cardiovascular exam: Present: irregular rhythm, +S1, +S2, tachycardia. Absent: diastolic murmur, gallop, rubs, systolic murmur - GI/Abdominal GI/Abdominal exam: Present: normal bowel sounds, soft, no peritoneal signs. Absent: distended, tenderness - Extremities Exam Extremities exam: Present: warm, radial pulses palpable and symmetrical. Absent : calf tenderness, cyanotic, pedal edema Additional comments: RLE in boots - Neurological Exam Neurological exam: Present: alert, CN II-XII intact, oriented X3, no focal deficits. Absent: pronater drift, facial droop, speech deficit - Skin Skin exam: Present: dry, intact Internal Medicine: Result - Labs CBC & Chem 7: 08/11/17 04:20 08/11/17 04:00 Labs: Short CBC 08/10/17 08/11/17 Range/Units 15:56 04:20 WBC 7.8 (4.3-11.1) K/mcL Hgb 8.4 L 8.2 L (12.9-16.9) g/dL Hct 26.7 L 25.5 L (37.5-50.1) % Plt Count 184 (140-400) K/mcL Neutrophils # 5.9 (1.6-8.9) K/mcL BMP 08/11/17 04:00 Sodium 145 Potassium 3.7 Chloride 113 H Carbon Dioxide 29 BUN 11 Creatinine 0.92 Glucose 180 H Calcium 8.7 - ABG Interpretation ABG results: PT/INR, D-dimer PT 17.7 Seconds (9.4-12.1) H 08/09/17 08:38 - VTE Documentation of Mechanical Device: Intermittent pneumatic compression device Consult Discharge Plan - Plan Referrals: Garth Little DO [Primary Care Provider] - (will go to [facility])
--- NOTE | 2017-08-11 12:37 | Anesthesia Evaluation PreOp ---
Date of Encounter: 08/11/17 Time of Encounter: 12:35 - Past History Planned Operation: EGD Cardiac History: CHF, Arrhythmia (afib), Other (Impressions: Technically difficult study due to poor windows and patient would not turn on left side for images. LVEF 60-65%. Not all LV segments were well visualized, but overall LVEF appears normal. Normal LV chamber size. Indeterminate diastolic function. Normal right ventricular structure and function. Aortic valve not well visualized. Mild aortic stenosis by Doppler. Mean gradient 16 mmHg. Mild pulmonary hypertension. 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 History: Other (confusion: head CT showed no acute intracranial abnormality) Other Medical History: Renal (VIRIDIANA), Diabetes Type II, GERD, Other (anemia) Anesthesia History: No Prior Anesthetic Complications, Past Anesthesia ( prostatectomy) Alcohol Use: none Drug use: none Medications and Allergies Atorvastatin Calcium [Lipitor] 80 mg PO HS 08/03/17 [History] Budesonide/Formoterol 160/4.5 [Symbicort 160/4.5] 2 puff IH BIDR 08/03/17 [ History] Insulin DETEMIR [Levemir Flextouch] 40 - 50 unit SQ HS 08/03/17 [History] Insulin LISPRO [Humalog Kwikpen U-100] 0 unit SQ TID PRN 08/03/17 [History] Levothyroxine Sodium [Levoxyl] 175 mcg PO DAILY 08/03/17 [History] Losartan Potassium [Cozaar] 50 mg PO DAILY 08/03/17 [History] Metoprolol [Lopressor] 50 mg PO BID 08/03/17 [History] Metoprolol [Lopressor] 50 mg PO BID 08/03/17 [History] Omeprazole [PriLOSEC] 20 mg PO DAILY 08/03/17 [History] Potassium Chloride [K-Tab ER] 80 meq PO BID 08/03/17 [History] Spironolactone [Aldactone] 25 mg PO DAILY 08/03/17 [History] Tiotropium [Spiriva] 18 mcg IH DAILY 08/03/17 [History] Torsemide [Demadex] 100 mg PO BID 08/03/17 [History] Warfarin [Coumadin] 8.5 mg PO DAILY 08/03/17 [History] metOLazone [Metolazone] 10 mg PO DAILY 08/03/17 [History] 3 Allergy/AdvReac Type Severity Reaction Status Date / Time metformin [From Glucophage] Allergy Diarrhea Verified 12/11/14 11:57 Sulfa (Sulfonamide Allergy See Verified 08/05/17 17:59 Antibiotics) Comments - Meds/Allergy Pre-op Review Medications Reviewed: Yes Allergies Reviewed: Yes Beta Blockers on Current Med List: Yes If Beta Blockers taken, Date/Time (Last Dose taken): 841am 08/11/17 Anesthesia Results - Labs 08/11/17 04:20 08/11/17 04:00 - Imaging EKG: report reviewed ( Interpretive Statements ATRIAL FIBRILLATION WITH RAPID VENTRICULAR RESPONSE LOW QRS VOLTAGE IN EXTREMITY LEADS Electronically Signed On 08-04-2017 20:27:08 EDT by Jordon Pozo) Anesthesia Exam Vital Signs/O2 Sat, Most Current Temp Pulse Resp BP Pulse Ox 99.1 F 116 24 125/71 96 08/11/17 11:08 08/11/17 11:08 08/11/17 11:45 08/11/17 11:08 08/11/17 11:45 Weight: 111kg NPO (# of Hours): >8 - HEENT Pupil (Motor): Pupils equal - PULVERIZER TENDER LOC: Confused - Cardiac Rhythm: Irregular - Pulmonary Breath Sounds: bilateral Clear Respiratory Effort: Symmetrical Anesthesia Assess/Plan ASA Score: 4 Modified Maria Teresa Scale for Level of Consciousness: Cooperative, oriented, and tranquil Anesthetic Plan: MAC (pt is dni/dnr will accept a brief intubation in the periop period until he is stable) Monitoring Plan: Standard Monitors Recovery Plan: PACU
[2017-08-11] MEDS ORDERED: *HR* Propofol 200 MG/20 ML VIAL IVP ONE (12:41)
[2017-08-11] MEDS ORDERED: Lidocaine -MPF 2% 2 ML VIAL ONE (12:41)
[2017-08-11] MEDS: *HR* LORazepam 2 MG/ML VIAL IVP PRN (12:48)
--- NOTE | 2017-08-11 14:05 | Anesthesia Evaluation Post Op ---
Date of Encounter: 08/11/17 Time of Encounter: 14:05 - Vital Signs Vital Signs: Vital Signs/O2 Sat, Most Current Temp Pulse Resp BP Pulse Ox 98.5 F 110 24 105/72 96 08/11/17 13:14 08/11/17 13:14 08/11/17 13:14 08/11/17 13:14 08/11/17 13:14 - Lungs Lungs: Rhonchi - Airway Airway: Non-obstructed - Cardiovascular Irregular Rate, Baseline Rhythm - Mental Status Mental Status: Confused, Baseline Status - Nausea Vomiting Nausea Vomiting: Not Present - Hydration Hydration: NPO - Discharge PostOp Status: Transfer Patient to floor
--- NOTE | 2017-08-11 14:14 | Palliative Progress Note ---
Date of Encounter: 08/11/17 Time of Encounter: 09:45 - Assessment and plan (1) VIRIDIANA (acute kidney injury) Current Visit: Yes Status: Resolved Assessment and plan: BUN 11 Cr 0.92. Continue to monitor. (2) COPD (chronic obstructive pulmonary disease) Current Visit: Yes Status: Acute Assessment and plan: Patient oxygen saturation 96% during assessment, while on Bipap. Qualifiers: COPD type: unspecified COPD Qualified Code(s): J44.9 - Chronic obstructive pulmonary disease, unspecified (3) CHF (congestive heart failure) Current Visit: Yes Status: Chronic Qualifiers: Heart failure type: unspecified Heart failure chronicity: unspecified Qualified Code(s): I50.9 - Heart failure, unspecified (4) Goals of care, counseling/discussion Current Visit: Yes Status: Chronic Assessment and plan: Plan colonoscopy tomorrow. senior living plan to discharge to [facility]. (5) Elevated troponin I level Current Visit: Yes Status: Acute (6) Sepsis Current Visit: Yes Status: Resolved Assessment and plan: WBC improved to 7.8. Continue IV Antibiotics from Primary care team. Qualifiers: Sepsis type: sepsis due to unspecified organism Qualified Code(s): A41.9 - Sepsis, unspecified organism (7) Abdominal pain Current Visit: Yes Status: Acute Assessment and plan: Patient has not had bowel movement since 08/08/17. Plan to have colonoscopy tomorrow. (8) Anxiety Current Visit: Yes Status: Acute Assessment and plan: Patient having increased anxiety. Requested Romi RN administer PRN Ativan to reduce anxiety; had not been given in last 24 hours. - Time Spent With Patient Total time spent is greater than 50% in coordination of care (as documented) at patient's floor/unit and/or counseling patient: - Subjective Interval history: Patient laying in bed with eyes open, alert and oriented times 3 during assessment. Patient's and daughter at bedside, reported that EGD scheduled for today. Patient anxious and heart rate in 110s. Patient denies nausea, or vomiting during assessment. Patient having tachypneic breathing and reports RUQ abdominal pain; unable to rate on pain scale. Abdomen is notably distended. During examination, GI RESEARCH FELLOW Tenzin approached patient's for consent for EGD , with plan for between 12-3pm. Patient's expressed that they feel abdominal distention from flatulence. Spoke with RESEARCH FELLOW from GI and agreed that EGD would give best report on cause of abdominal swelling if in upper GI tract. 1220: Reassessed patient with improved respiratory rate; however, continued complaint of anxiety related to EGD. Heart rate increased to 150-180. Spoke with Romi OLSON and patient had been given Metoprolol. Recommended use of Ativan to assist with continued anxiety. - Constitutional Vitals: Abnormal lab results RBC 2.68 M/mcL (4.19-5.50) L 08/11/17 04:20 Hgb 8.2 g/dL (12.9-16.9) L 08/11/17 04:20 Hct 25.5 % (37.5-50.1) L 08/11/17 04:20 RDW 18.6 % (11.5-14.5) H 08/11/17 04:20 Nucleated RBCs/100 WBC 0.3 /100 WBC (0) H 08/11/17 04:20 PT 17.7 Seconds (9.4-12.1) H 08/09/17 08:38 APTT 51.6 Seconds (26.0-36.0) H 08/04/17 04:30 Chloride 113 mEq/L (98-107) H 08/11/17 04:00 Glucose 180 mg/dL (70-105) H 08/11/17 04:00 POC Glucose 164 mg/dL (70-99) H 08/10/17 20:19 Calculated Osmolality 304 (280-300) H 08/11/17 04:00 Uric Acid 9.6 mg/dL (2.3-7.6) H 08/03/17 09:45 Phosphorus 1.8 mg/dL (2.7-4.5) L 08/06/17 06:20 AST 46 Units/L (13-39) H 08/04/17 04:30 B-Natriuretic Peptide 149 pg/mL (Less than 100) H 08/04/17 04:30 Albumin 3.1 g/dL (3.5-5.7) L 08/04/17 04:30 Albumin/Globulin Ratio 0.9 (1.1-2.2) L 08/04/17 04:30 TSH 0.104 mcIU/mL (0.340-5.600) L 08/03/17 09:45 Urine Blood Trace (Negative) H 08/03/17 11:00 Ur Leukocyte Esterase Small (Negative) H 08/03/17 11:00 Ur Squamous Epith Cells Moderate per lpf (None-Few) H 08/03/17 11:00 Ur Culture Indicated? YES (NO) A 08/03/17 11:00 Protein/Creatinin Ratio 0.31 mg/mg (0.00-0.20) H 08/03/17 11:00 Staphylococcus sp PCR DETECTED (Not Detect) A 08/03/17 07:18 mecA-Methicil Res Gene DETECTED (Not Detect) A 08/03/17 07:18 General appearance: Present: cooperative, mild distress (Moderate distress noted.) - Head Head exam: Present: atraumatic, normal inspection - Eye Eye exam: Present: PERRL. Absent: periorbital swelling, periorbital tenderness Pupils: Present: normal accommodation, PERRL - ENT ENT exam: Present: mucous membranes dry, normal external ear exam - Neck Neck exam: Present: full ROM, normal inspection - Respiratory Respiratory exam: Present: accessory muscle use, CTAB, respiratory distress - Cardiovascular Cardiovascular exam: Present: +S1, +S2 - GI/Abdominal GI/Abdominal exam: Present: diminished bowel sounds, distended, firm, tenderness - Rectal Rectal exam: Present: deferred - Extremities Exam Extremities exam: Present: full ROM - Back Exam Back exam: Present: full ROM, normal inspection - Neurological Exam Neurological exam: Present: alert, altered, oriented X3, strengths equal and symetr throughout - Psychiatric Psychiatric exam: Present: anxious - Skin Skin exam: Present: dry, intact, warm Palliative Quality Palliative Quality: Screen for Code Status: Yes, Screen for Goals of Care: Yes, Screen for Pain: Yes, If Pain Regimen Started, Initiate Bowel Regimen: NA, Screen for Nausea/Vomitting: Yes Code Status: 08/03/17 06:15 Resuscitation Status: Active [RES] Routine Comment: Resuscitation Status: [id number] - Labs CBC & Chem 7: 08/11/17 04:20 08/11/17 04:00 Labs: Laboratory Results - last 24 hr 08/10/17 08/10/17 08/10/17 10:44 15:56 15:56 WBC RBC Hgb 8.4 L Hct 26.7 L MCV MCH MCHC RDW Plt Count MPV Immature Gran % Seg Neutrophils % Lymphocytes % Monocytes % Eosinophils % Basophils % Neutrophils # Lymphocytes # Monocytes # Eosinophils # Basophils # Nucleated RBCs/100 WBC Sodium Potassium Chloride Carbon Dioxide BUN Creatinine Est GFR ( Amer) Est GFR (Non-Af Amer) BUN/Creatinine Ratio Glucose POC Glucose 274 H Calculated Osmolality Calcium Blood Type A POSITIVE Antibody Screen NEGATIVE 08/10/17 08/10/17 08/11/17 16:26 20:19 04:00 WBC RBC Hgb Hct MCV MCH MCHC RDW Plt Count MPV Immature Gran % Seg Neutrophils % Lymphocytes % Monocytes % Eosinophils % Basophils % Neutrophils # Lymphocytes # Monocytes # Eosinophils # Basophils # Nucleated RBCs/100 WBC Sodium 145 Potassium 3.7 Chloride 113 H Carbon Dioxide 29 BUN 11 Creatinine 0.92 Est GFR ( Amer) > 60 Est GFR (Non-Af Amer) > 60 BUN/Creatinine Ratio 12 Glucose 180 H POC Glucose 138 H 164 H Calculated Osmolality 304 H Calcium 8.7 Blood Type Antibody Screen 08/11/17 04:20 WBC 7.8 RBC 2.68 L Hgb 8.2 L Hct 25.5 L MCV 95.1 MCH 30.6 MCHC 32.2 RDW 18.6 H Plt Count 184 MPV 9.9 Immature Gran % 0.6 Seg Neutrophils % 75.8 Lymphocytes % 12.7 Monocytes % 7.9 Eosinophils % 2.7 Basophils % 0.3 Neutrophils # 5.9 Lymphocytes # 1.0 Monocytes # 0.6 Eosinophils # 0.2 Basophils # 0.0 Nucleated RBCs/100 WBC 0.3 H Sodium Potassium Chloride Carbon Dioxide BUN Creatinine Est GFR ( Amer) Est GFR (Non-Af Amer) BUN/Creatinine Ratio Glucose POC Glucose Calculated Osmolality Calcium Blood Type Antibody Screen - ABG Interpretation ABG results: PT/INR, D-dimer PT 17.7 Seconds (9.4-12.1) H 08/09/17 08:38 Consult Discharge Plan - Plan Referrals: Garth Little DO [Primary Care Provider] - (will go to ECF)
[2017-08-11] MEDS: Torsemide 20 MG TABLET PO SCH (15:21)
[2017-08-11] MEDS: Levalbuterol Neb 0.63 MG/3 ML IH SCH ×2 (19:38→23:19)
[2017-08-11] MEDS: Budesonide/Formoterol 160/4.5 MDI IH SCH (19:40)
[2017-08-12] MEDS: *HR* LORazepam 2 MG/ML VIAL IVP PRN ×2 (02:01→16:30)
[2017-08-12] MEDS: Insulin LISPRO 300 UNITS/3 ML VIAL SQ SCH ×5 (02:05→21:18)
[2017-08-12] MEDS: Insulin DETEMIR 100 UNIT/ML X5UNITS SQ SCH ×2 (02:05→21:19)
[2017-08-12] MEDS: Levalbuterol Neb 0.63 MG/3 ML IH SCH ×5 (03:44→20:27)
[2017-08-12 05:09] LABS: Basophils % 0.3 %; Eosinophils # 0.2 K/mcL (0.0-0.6); Eosinophils % 2.7 %; Hematocrit 25.5 % (37.5-50.1); Hemoglobin 7.9 g/dL (12.9-16.9); Immature Granulocytes % 0.5 % (0-4); Lymphocytes % 12.9 %; Mean Corpuscular Hemoglobin 29.8 pg (28.0-33.3); Mean Corpuscular Volume 96.2 fL (83.0-100.0); Monocytes # 0.6 K/mcL (0.0-1.3); Monocytes % 8.5 %; Neutrophils # 5.6 K/mcL (1.6-8.9); Platelet Count 195 K/mcL (140-400); Red Blood Count 2.65 M/mcL (4.19-5.50); Red Cell Distribution Width 18.7 % (11.5-14.5); Segmented Neutrophils % 75.1 %
[2017-08-12 05:38] LABS: BUN/Creatinine Ratio 13 (6-26); Blood Urea Nitrogen 13 mg/dL (8-23); Calcium 8.5 mg/dL (8.6-10.3); Carbon Dioxide 30 mEq/L (23-29); Chloride 110 mEq/L (98-107); Glucose 178 mg/dL (70-105); Osmolality,Calculated 309 (280-300); Potassium 3.4 mEq/L (3.5-5.1); Sodium 147 mEq/L (136-145); eGFR For African Americans > 60 (> 60); eGFR For Non-African Americans > 60 (> 60)
[2017-08-12] MEDS: Pantoprazole 40 MG VIAL IVP SCH ×2 (05:38→16:25)
[2017-08-12] MEDS: Piperacillin/Tazobactam 3.375 GM in 0.9 % Sodium Chloride Mini Bag 100 ML IVPB SCH ×2 (05:38→12:01)
[2017-08-12] MEDS ORDERED: Tiotropium 18 MCG inhalation IH SCH (07:00)
[2017-08-12] MEDS: Budesonide/Formoterol 160/4.5 MDI IH SCH ×2 (07:37→20:27)
[2017-08-12] MEDS: Tiotropium 18 MCG inhalation IH SCH (07:38)
[2017-08-12] MEDS ORDERED: 0.9 % Sodium Chloride 250 ML ONE (08:06)
[2017-08-12] MEDS: Spironolactone 25 MG TABLET PO SCH (08:19)
[2017-08-12] MEDS: Torsemide 20 MG TABLET PO SCH (08:19)
[2017-08-12] MEDS: Sennosides/Docusate Sodium TABLET PO SCH ×2 (08:19→20:25)
[2017-08-12] MEDS: Diltiazem CD (24hr) 240 MG CAPSULE PO SCH (08:20)
[2017-08-12] MEDS: Aspirin 81 MG TAB.CHEW PO SCH (08:20)
--- NOTE | 2017-08-12 11:27 | Palliative Progress Note ---
Date of Encounter: 08/12/17 Time of Encounter: 07:00 - Assessment and plan (1) VIRIDIANA (acute kidney injury) Current Visit: Yes Status: Resolved Assessment and plan: BUN is 13 creatinine is 1.01 GFR is greater than 60 this is resolved (2) COPD (chronic obstructive pulmonary disease) Current Visit: Yes Status: Acute Assessment and plan: Sats 97% on 2 L continue current therapy per hospitalist team Qualifiers: COPD type: unspecified COPD Qualified Code(s): J44.9 - Chronic obstructive pulmonary disease, unspecified (3) CHF (congestive heart failure) Current Visit: Yes Status: Chronic Assessment and plan: Continue current therapy per hospitalist team Qualifiers: Heart failure type: unspecified Heart failure chronicity: unspecified Qualified Code(s): I50.9 - Heart failure, unspecified (4) Goals of care, counseling/discussion Current Visit: Yes Status: Chronic Assessment and plan: CODE STATUS established DNR CCA, DNI. Goals of care will anoscopy I understand has been canceled for today the patient will be discharged to [facility] later today. - Time Spent With Patient Total time spent is greater than 50% in coordination of care (as documented) at patient's floor/unit and/or counseling patient: - Subjective Interval history: Patient is having no pain this morning, still has had no bowel movement, status post EGD yesterday supposedly for colonoscopy today. I was later informed no colonoscopy. Patient will probably be discharged today. - Constitutional Vitals: Abnormal lab results RBC 2.65 M/mcL (4.19-5.50) L 08/12/17 04:45 Hgb 7.9 g/dL (12.9-16.9) L 08/12/17 04:45 Hct 25.5 % (37.5-50.1) L 08/12/17 04:45 MCHC 31.0 g/dL (31.6-35.5) L 08/12/17 04:45 RDW 18.7 % (11.5-14.5) H 08/12/17 04:45 Nucleated RBCs/100 WBC 0.3 /100 WBC (0) H 08/11/17 04:20 PT 17.7 Seconds (9.4-12.1) H 08/09/17 08:38 APTT 51.6 Seconds (26.0-36.0) H 08/04/17 04:30 Sodium 147 mEq/L (136-145) H 08/12/17 04:45 Potassium 3.4 mEq/L (3.5-5.1) L 08/12/17 04:45 Chloride 110 mEq/L (98-107) H 08/12/17 04:45 Carbon Dioxide 30 mEq/L (23-29) H 08/12/17 04:45 Glucose 178 mg/dL (70-105) H 08/12/17 04:45 POC Glucose 192 mg/dL (70-99) H 08/11/17 20:38 Calculated Osmolality 309 (280-300) H 08/12/17 04:45 Uric Acid 9.6 mg/dL (2.3-7.6) H 08/03/17 09:45 Calcium 8.5 mg/dL (8.6-10.3) L 08/12/17 04:45 Phosphorus 1.8 mg/dL (2.7-4.5) L 08/06/17 06:20 AST 46 Units/L (13-39) H 08/04/17 04:30 B-Natriuretic Peptide 149 pg/mL (Less than 100) H 08/04/17 04:30 Albumin 3.1 g/dL (3.5-5.7) L 08/04/17 04:30 Albumin/Globulin Ratio 0.9 (1.1-2.2) L 08/04/17 04:30 TSH 0.104 mcIU/mL (0.340-5.600) L 08/03/17 09:45 Urine Blood Trace (Negative) H 08/03/17 11:00 Ur Leukocyte Esterase Small (Negative) H 08/03/17 11:00 Ur Squamous Epith Cells Moderate per lpf (None-Few) H 08/03/17 11:00 Ur Culture Indicated? YES (NO) A 08/03/17 11:00 Protein/Creatinin Ratio 0.31 mg/mg (0.00-0.20) H 08/03/17 11:00 Staphylococcus sp PCR DETECTED (Not Detect) A 08/03/17 07:18 mecA-Methicil Res Gene DETECTED (Not Detect) A 08/03/17 07:18 General appearance: Present: no acute distress - Respiratory Respiratory exam: Present: decreased breath sounds - Cardiovascular Cardiovascular exam: Present: RRR - GI/Abdominal GI/Abdominal exam: Present: normal bowel sounds, soft. Absent: tenderness - Extremities Exam Extremities exam: Absent: pedal edema - Neurological Exam Neurological exam: Present: alert - Psychiatric Psychiatric exam: Absent: agitated, anxious - Skin Skin exam: Present: dry, warm Palliative Quality Palliative Quality: Screen for Code Status: Yes, Screen for Goals of Care: Yes, Screen for Pain: Yes, If Pain Regimen Started, Initiate Bowel Regimen: NA, Screen for Nausea/Vomitting: Yes Code Status: 08/03/17 06:15 Resuscitation Status: Active [RES] Routine Comment: Resuscitation Status: [id number] - Labs CBC & Chem 7: 08/12/17 04:45 08/12/17 04:45 Labs: Laboratory Results - last 24 hr 08/10/17 08/11/17 08/11/17 15:56 07:19 11:13 WBC RBC Hgb Hct MCV MCH MCHC RDW Plt Count MPV Immature Gran % Seg Neutrophils % Lymphocytes % Monocytes % Eosinophils % Basophils % Neutrophils # Lymphocytes # Monocytes # Eosinophils # Basophils # Sodium Potassium Chloride Carbon Dioxide BUN Creatinine Est GFR ( Amer) Est GFR (Non-Af Amer) BUN/Creatinine Ratio Glucose POC Glucose 128 H 185 H Calculated Osmolality Calcium Blood Type A POSITIVE Antibody Screen NEGATIVE Crossmatch See Detail 08/11/17 08/11/17 08/12/17 16:12 20:38 04:45 WBC 7.5 RBC 2.65 L Hgb 7.9 L Hct 25.5 L MCV 96.2 MCH 29.8 MCHC 31.0 L RDW 18.7 H Plt Count 195 MPV 10.0 Immature Gran % 0.5 Seg Neutrophils % 75.1 Lymphocytes % 12.9 Monocytes % 8.5 Eosinophils % 2.7 Basophils % 0.3 Neutrophils # 5.6 Lymphocytes # 1.0 Monocytes # 0.6 Eosinophils # 0.2 Basophils # 0.0 Sodium Potassium Chloride Carbon Dioxide BUN Creatinine Est GFR ( Amer) Est GFR (Non-Af Amer) BUN/Creatinine Ratio Glucose POC Glucose 185 H 192 H Calculated Osmolality Calcium Blood Type Antibody Screen Crossmatch 08/12/17 04:45 WBC RBC Hgb Hct MCV MCH MCHC RDW Plt Count MPV Immature Gran % Seg Neutrophils % Lymphocytes % Monocytes % Eosinophils % Basophils % Neutrophils # Lymphocytes # Monocytes # Eosinophils # Basophils # Sodium 147 H Potassium 3.4 L Chloride 110 H Carbon Dioxide 30 H BUN 13 Creatinine 1.01 Est GFR ( Amer) > 60 Est GFR (Non-Af Amer) > 60 BUN/Creatinine Ratio 13 Glucose 178 H POC Glucose Calculated Osmolality 309 H Calcium 8.5 L Blood Type Antibody Screen Crossmatch - ABG Interpretation ABG results: PT/INR, D-dimer PT 17.7 Seconds (9.4-12.1) H 08/09/17 08:38 Consult Discharge Plan - Plan Referrals: Garth Little DO [Primary Care Provider] - (will go to ECF)
--- NOTE | 2017-08-12 12:34 | Discharge Summary ---
- NOTES TO OUTPATIENT PROVIDER Notes to Outpatient Provider: Patient was managed for Sepsis secondary to Pneumonia, Elevated INR, VIRIDIANA, Hypernatremia, Suspected GIB (Ruled out by endoscopy). Home medications-Torsemide/Spironolacttone have been resumed at lower doses , Metolazone has been held, Patient has been started on lopressor iin addition to his home dose of Diltiazem. Warfarin was discontinued due to Elevated INR with hematemesis, patient and his family have opted not to use Warfarin again for now. He is transferred to SNF for rehab. Orders not resulted at time of discharge: Pending orders 08/08/17 11:50 Culture,Blood [BC] Routine Date of Encounter: 08/12/17 Time of Encounter: 12:30 - Discharge Diagnosis (1) Diabetes mellitus with neuropathy Priority: Secondary Status: Chronic Assessment and Plan: Fingersticks have been acceptable on current dose of insulin, will recommend continuing the same at the nursing facility. Monitor fingersticks, continue diabetic diet with nectar thickened liquids. Qualifiers: Diabetes mellitus type: type 2 Diabetes mellitus prison insulin use: unspecified prison insulin use status Qualified Code(s): E11.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, unspecified (2) Hyponatremia Priority: Primary Status: Resolved Assessment and Plan: Hyponatremia which has resolved and patient is now hypernatremic. Patient has been started on free water. Monitor sodium levels Hypernatemia resolved, but kindly ensure patient is receiving free water I recommend check Chem in 2 days at SNF to ensure resolution (3) Elevated troponin Priority: Primary Status: Acute Assessment and Plan: Trops on admission 0.77.. trended down No Chest pain Continue home meds Statin and BB 2D echo showed no acute findings. Etiology likely 2/2 to demand ischemia (4) VIRIDIANA (acute kidney injury) Priority: Primary Status: Resolved Assessment and Plan: Due to dehydration Resolved (5) Elevated INR Priority: Primary Status: Resolved Assessment and Plan: Resolved INR 1.6 08/09 Admitting INR 8.0 Coumadin held throughout admission EGD does not show any active bleed Colonosocpy 01/2016 done showed polyps-lymhoid tissue, patient refused colonoscopy today he also does not want to be given warfarin for now Follow up with own electronic sensing equipment assembler (6) High ankle sprain of right lower extremity Priority: Primary Status: Acute Assessment and Plan: previous worked up a gonzalez, no fracture - as per family however X ray of ankle here showed fractures of the medial malleolus and distal fibula Has boot on and podiatry recommended outpatient follow up in one week after discharge for repeat xrays Ensure follow up with Podiatry For non-weight bearing on that limb Qualifiers: Encounter type: initial encounter Qualified Code(s): S93.431A - Sprain of tibiofibular ligament of right ankle, initial encounter (7) Hypothyroid Priority: Secondary Status: Chronic Assessment and Plan: continue home dose of levothyroixine Qualifiers: Hypothyroidism type: unspecified Qualified Code(s): E03.9 - Hypothyroidism , unspecified (8) Afib Priority: Secondary Status: Chronic Assessment and Plan: Continue Metoprolol and Diltiazem Warfarin held Qualifiers: Atrial fibrillation type: persistent Qualified Code(s): I48.1 - Persistent atrial fibrillation (9) CHF (congestive heart failure) Priority: Secondary Status: Chronic Assessment and Plan: Has diastolic CHF Continue Torsemide, Spironolactone, Loasrtan at low dose Monitor Chem Qualifiers: Heart failure type: unspecified Heart failure chronicity: unspecified Qualified Code(s): I50.9 - Heart failure, unspecified (10) Hypertension Priority: Secondary Status: Chronic Assessment and Plan: Controlled on current medications, continue same Qualifiers: Hypertension type: essential hypertension Qualified Code(s): I10 - Essential (primary) hypertension (11) Goals of care, counseling/discussion Priority: Secondary Status: Chronic Assessment and Plan: DNR-CCA-DNI (12) Fall Priority: Primary Status: Acute Assessment and Plan: Head CT no acute findings For rehab at [facility] Qualifiers: Encounter type: initial encounter Qualified Code(s): W19.XXXA - Unspecified fall, initial encounter (13) DVT prophylaxis Priority: Primary Status: Acute (14) Acute metabolic encephalopathy Priority: Primary Status: Resolved Assessment and Plan: resolved (15) Acute upper GI bleed Priority: Primary Status: Suspected (16) Sepsis Priority: Primary Status: Resolved (17) Pneumonia Priority: Secondary Status: Acute Assessment and Plan: has received total 10 hale of antibiotics Complete 4 more days of Augmentin Qualifiers: Pneumonia type: due to unspecified organism Laterality: unspecified laterality Lung location: unspecified part of lung Qualified Code(s): J18.9 - Pneumonia, unspecified organism (18) Hypernatremia Priority: Primary Status: Resolved (19) Anemia Priority: Secondary Status: Acute Qualifiers: Anemia type: unspecified type Qualified Code(s): D64.9 - Anemia, unspecified Hospital course: Mr. Mack is a 82 year old male with multiple medical comorbidities was admitted for sepsis, secondary to pneumonia, supratherapeutic INR, A. fib with RVR, acute on chronic anemia, hyponatremia a KI, dehydration, elevated troponin , CHF. Patient is seen and evaluated at the bedside with family members this morning. He is awake, alert, oriented 3, receiving blood transfusion at time of evaluation. Refusing colonoscopy was scheduled to have been done earlier today. Spoke with patient's PCP office, patient had a colonoscopy January 2016 with benign mucosa and polyps. Polyps with its contending thyroid tissue only. The patient is medically stable to be discharged to the [facility]. After blood transfusion. See each diagnosis for details of hospital course. Plan of care discussed with patient and his family who agree with plan Discharge discussed with: patient, family, nurse, social work, case management, healthcare network consultant - Time Spent with Patient Total time spent providing and/or coordinating discharge services: Greater than 30 minutes - Discharge Medications Home Medications: Atorvastatin Calcium [Lipitor] 80 mg PO HS 08/03/17 [History] Budesonide/Formoterol 160/4.5 [Symbicort 160/4.5] 2 puff IH BIDR 08/03/17 [ History] Insulin LISPRO [Humalog Kwikpen U-100] 0 unit SQ TID PRN 08/03/17 [History] Levothyroxine Sodium [Levoxyl] 175 mcg PO DAILY 08/03/17 [History] Metoprolol [Lopressor] 50 mg PO BID 08/03/17 [History] Omeprazole [PriLOSEC] 20 mg PO DAILY 08/03/17 [History] Spironolactone [Aldactone] 25 mg PO DAILY 08/03/17 [History] Tiotropium [Spiriva] 18 mcg IH DAILY 08/03/17 [History] Acetaminophen [Tylenol] 650 mg PO Q6HR PRN tablet 08/12/17 [Rx] Aspirin 81 mg PO DAILY tab.chew 08/12/17 [Rx] Diltiazem CD (24hr) [Cardizem CD] 240 mg PO DAILY cap.er.24h 08/12/17 [Rx] Insulin DETEMIR [Levemir] 20 unit SQ HS [id number] 08/12/17 [Rx] Levothyroxine [Synthroid] 175 mcg PO 0630 tablet 08/12/17 [Rx] Losartan [Cozaar] 12.5 mg PO DAILY tablet 08/12/17 [Rx] Sennosides/Docusate Sodium [Senna Plus] 2 each PO BID tablet 08/12/17 [Rx] Torsemide [Demadex] 40 mg PO DAILY tablet 08/12/17 [Rx] Allergies/Adverse Reactions: 3 Allergy/AdvReac Type Severity Reaction Status Date / Time metformin [From Glucophage] Allergy Diarrhea Verified 12/11/14 11:57 Sulfa (Sulfonamide Allergy See Verified 08/05/17 17:59 Antibiotics) Comments Date of admission: 08/03/17 05:51 Primary care physician: Garth Little Consults: 08/03/17 06:20 Consult to Nephrology [CONS] Routine Consulting Provider: [facility] [place]/CEE/CHELSEA/VINCENZO Reason for Consult: hyponatremia/ams Call Completed: No 08/03/17 08:42 Consult to Invasive Line Access Team [CONS] Routine Reason for Consult: Limited access Line Type: EPIV 08/03/17 08:58 Consult to Podiatry [CONS] Routine Consulting Provider: [facility] Reason for Consult: Rt ankle strain Time Notified: 08:59 Call Completed: Yes 08/03/17 09:04 Consult to College Intern [CONS] Routine Reason for SW Consult: Rehab placement 08/03/17 14:17 Consult to Physical Therapy [CONS] Routine Comment: Evaluate, develop and implement POC Reason for Consult: Eval for rehab placement Does patient have active BEDREST order?: No Is patient medically & hemodynamically stable?: Yes 08/03/17 14:18 Consult to Occupational Therapy [CONS] Routine Comment: Evaluate, develop and implement POC Reason for Consult: Eval for rehab placement Does patient have active BEDREST order?: No Is patient medically & hemodynamically stable?: Yes 08/04/17 08:25 Consult to Gastroenterology [CONS] Routine Consulting Provider: Gastroenter[facility] [place] Reason for Consult: GI bleed Time Notified: 08:26 Call Completed: Yes 08/05/17 07:41 Consult to Infectious Diseases [CONS] Routine Consulting Provider: Infectious Disease [place] Reason for Consult: mRSA sepsis Call Completed: Yes 08/06/17 10:38 Consult to Speech Therapy [CONS] Routine Comment: Evaluate, develop and implement POC Reason for Consult: Patietn decreased mental status, letting food fall from mouth Time Notified: 10:42 Call Completed: Yes 08/08/17 08:16 Consult to Palliative Care [CONS] Routine Comment: Consulting Provider: Palliative Care [place] Reason for Consult: clarification of goals of care Call Completed: Yes Discharging clinician: Neno Samayoa Anticipated date of discharge: 08/12/17 - Constitutional Vitals: Temp Pulse Resp BP Pulse Ox 97.8 F 88 18 114/71 97 08/12/17 11:16 08/12/17 11:16 08/12/17 11:17 08/12/17 11:16 08/12/17 11:17 General appearance: Present: cooperative, A&O X 3, pleasant, obese, answers questions appropriately - Head Head exam: Present: atraumatic, normocephalic - Eye Eye exam: Present: PERRL, conjuntiva pink, sclera anicteric Pupils: Present: PERRL - Neck Neck exam general surgery: Present: supple, trachea midline. Absent: lymphadenopathy - Respiratory Respiratory exam: Present: decreased breath sounds. Absent: stridor, wheezes, tachypnea - Cardiovascular Cardiovascular exam: Present: RRR, +S1, +S2. Absent: diastolic murmur, gallop, rubs, systolic murmur - GI/Abdominal GI/Abdominal exam: Present: normal bowel sounds, soft, no peritoneal signs. Absent: distended, tenderness - Extremities Exam Extremities exam: Present: warm, radial pulses palpable and symmetrical. Absent : calf tenderness, cyanotic, pedal edema Additional comments: Right foot in boots - Neurological Exam Neurological exam: Present: alert, CN II-XII intact, oriented X3, no focal deficits. Absent: pronater drift, facial droop, speech deficit - Skin Skin exam: Present: dry - Patient Status Disposition: Transfer SNF Condition: Fair Functional capacity at discharge: bed bound Overall status at discharge: patient is progressing back to baseline - Discharge Instructions Follow Up With: Garth Little DO [Primary Care Provider] - (will go to [facility]) - Diet and Activity Activity: as per physical therapy Diet: diabetic diet, low fat, low cholesterol, low salt diet, other (nectar thickened) - VTE Documentation of Mechanical Device: Intermittent pneumatic compression device
--- NOTE | 2017-08-12 12:51 | Physician Discharge Referral ---
ExtendedCare Referral Info Transfer To: 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 (2) Hyponatremia Priority: Primary Status: Resolved (3) Elevated troponin Priority: Primary Status: Resolved (4) VIRIDIANA (acute kidney injury) Priority: Primary Status: Resolved (5) Elevated INR Priority: Primary Status: Resolved (6) High ankle sprain of right lower extremity Priority: Primary Status: Acute (7) Hypothyroid Priority: Secondary Status: Chronic (8) Afib Priority: Secondary Status: Chronic (9) CHF (congestive heart failure) Priority: Secondary Status: Chronic (10) Hypertension Priority: Secondary Status: Chronic (11) Goals of care, counseling/discussion Priority: Secondary Status: Chronic (12) Fall Priority: Primary Status: Acute (13) DVT prophylaxis Priority: Primary Status: Acute (14) Acute metabolic encephalopathy Priority: Primary Status: Resolved (15) Acute upper GI bleed Priority: Primary Status: Resolved (16) Sepsis Priority: Primary Status: Resolved (17) Pneumonia Priority: Primary Status: Acute (18) Hypernatremia Priority: Primary Status: Resolved (19) Anemia Priority: Primary Status: Acute Prognosis: Fair Aware of Diagnosis: Patient, Family Aware of Prognosis: Patient, Family - Transfer Medications Home Medications: Atorvastatin Calcium [Lipitor] 80 mg PO HS 08/03/17 [History] Budesonide/Formoterol 160/4.5 [Symbicort 160/4.5] 2 puff IH BIDR 08/03/17 [ History] Insulin LISPRO [Humalog Kwikpen U-100] 0 unit SQ TID PRN 08/03/17 [History] Levothyroxine Sodium [Levoxyl] 175 mcg PO DAILY 08/03/17 [History] Metoprolol [Lopressor] 50 mg PO BID 08/03/17 [History] Omeprazole [PriLOSEC] 20 mg PO DAILY 08/03/17 [History] Spironolactone [Aldactone] 25 mg PO DAILY 08/03/17 [History] Tiotropium [Spiriva] 18 mcg IH DAILY 08/03/17 [History] Acetaminophen [Tylenol] 650 mg PO Q6HR PRN tablet 08/12/17 [Rx] Amoxicillin/Clavulanate [Augmentin] 875 mg PO BIDWM tablet 08/12/17 [Rx] Aspirin 81 mg PO DAILY tab.chew 08/12/17 [Rx] Diltiazem CD (24hr) [Cardizem CD] 240 mg PO DAILY cap.er.24h 08/12/17 [Rx] Insulin DETEMIR [Levemir] 20 unit SQ HS [id number] 08/12/17 [Rx] Levothyroxine [Synthroid] 175 mcg PO 0630 tablet 08/12/17 [Rx] Losartan [Cozaar] 12.5 mg PO DAILY tablet 08/12/17 [Rx] Sennosides/Docusate Sodium [Senna Plus] 2 each PO BID tablet 08/12/17 [Rx] Torsemide [Demadex] 40 mg PO DAILY tablet 08/12/17 [Rx] Allergies/Adverse Reactions: 3 Allergy/AdvReac Type Severity Reaction Status Date / Time metformin [From Glucophage] Allergy Diarrhea Verified 12/11/14 11:57 Sulfa (Sulfonamide Allergy See Verified 08/05/17 17:59 Antibiotics) Comments - Respiratory Orders Oxygen / L per min Smoking Cessation: Smoking cessation has been advised. For more information, call the [place] Tobacco Quit Line at 9-857-LGES-NOW. - Advance Directives Code Status: DNR-Arrest/Don't Intubate - Mobility Orders Other (per PT) - Rehabiliation Orders Rehab Potential: Fair Rehab Orders: Evaluation for Physical Therapy, Evaluation for Occupational Therapy CERTIFICATION: I certify that the transfer of the above named patient to an Extended Care Facility is necessary for the continuing treatment of the diagnosis listed. The above information is true and accurate reflection of patient's current condition. Confidential - Redisclosure prohibited without a patient's written consent.
--- NOTE | 2017-08-12 16:58 | Event Note ---
Date of Encounter: 08/12/17 Time of Encounter: 17:00 spoke to nurse , pt and family do not to have colon done tomorrow.
[2017-08-12] MEDS ORDERED: SODIUM CHLORIDE/NAHCO3/KCL/PEG 4,000 ML SOLN.RECON PO ONE (17:00)
[2017-08-13] MEDS: Levalbuterol Neb 0.63 MG/3 ML IH SCH ×5 (00:50→15:25)
[2017-08-13] MEDS: *HR* LORazepam 2 MG/ML VIAL IVP PRN (03:00)
[2017-08-13] MEDS: Pantoprazole 40 MG VIAL IVP SCH (05:20)
[2017-08-13] MEDS: Tiotropium 18 MCG inhalation IH SCH (07:34)
[2017-08-13] MEDS: Budesonide/Formoterol 160/4.5 MDI IH SCH (07:34)
[2017-08-13] MEDS: Sennosides/Docusate Sodium TABLET PO SCH (07:58)
[2017-08-13] MEDS: Spironolactone 25 MG TABLET PO SCH (07:58)
[2017-08-13] MEDS: Torsemide 20 MG TABLET PO SCH (07:59)
[2017-08-13] MEDS: Insulin LISPRO 300 UNITS/3 ML VIAL SQ SCH ×3 (07:59→16:29)
[2017-08-13] MEDS: Diltiazem CD (24hr) 240 MG CAPSULE PO SCH (07:59)
[2017-08-13] MEDS: Aspirin 81 MG TAB.CHEW PO SCH (08:01)
[2017-08-13 09:01] LABS: Basophils % 0.1 %; Eosinophils # 0.2 K/mcL (0.0-0.6); Hematocrit 31.3 % (37.5-50.1); Immature Granulocytes % 0.6 % (0-4); Lymphocytes % 12.5 %; Mean Corpuscular HGB Conc 31.6 g/dL (31.6-35.5); Mean Corpuscular Hemoglobin 29.3 pg (28.0-33.3); Mean Corpuscular Volume 92.6 fL (83.0-100.0); Mean Platelet Volume 10.1 fL (9.4-12.4); Monocytes # 0.6 K/mcL (0.0-1.3); Monocytes % 7.6 %; Neutrophils # 6.3 K/mcL (1.6-8.9); Platelet Count 203 K/mcL (140-400); Red Blood Count 3.38 M/mcL (4.19-5.50); Red Cell Distribution Width 19.4 % (11.5-14.5); Segmented Neutrophils % 77.2 %
[2017-08-13 09:03] LABS: Hemoglobin 9.9 g/dL (12.9-16.9)
[2017-08-13 09:14] LABS: BUN/Creatinine Ratio 12 (6-26); Blood Urea Nitrogen 10 mg/dL (8-23); Calcium 8.5 mg/dL (8.6-10.3); Carbon Dioxide 31 mEq/L (23-29); Chloride 108 mEq/L (98-107); Glucose 208 mg/dL (70-105); Osmolality,Calculated 309 (280-300); Potassium 2.9 mEq/L (3.5-5.1); Sodium 147 mEq/L (136-145); eGFR For African Americans > 60 (> 60); eGFR For Non-African Americans > 60 (> 60)
--- NOTE | 2017-08-13 15:24 | Internal Med Progress Note ---
Date of Encounter: 08/13/17 Time of Encounter: 15:22 - Assessment and plan (1) Diabetes mellitus with neuropathy Current Visit: Yes Status: Chronic Assessment and plan: Fingersticks have been acceptable on current dose of insulin, will recommend continuing the same at the nursing facility. Monitor fingersticks, continue diabetic diet with nectar thickened liquids. Qualifiers: Diabetes mellitus type: type 2 Diabetes mellitus fci insulin use: unspecified fci insulin use status Qualified Code(s): E11.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, unspecified (2) Hyponatremia Current Visit: Yes Status: Resolved Assessment and plan: Hyponatremia which has resolved and patient is now hypernatremic. Patient has been started on free water. Monitor sodium levels Hypernatemia resolved, but kindly ensure patient is receiving free water I recommend check Chem in 2 days at SNF to ensure resolution (3) Elevated troponin Current Visit: Yes Status: Resolved Assessment and plan: Trops on admission 0.77.. trended down No Chest pain Continue home meds Statin and BB 2D echo showed no acute findings. 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 (6) High ankle sprain of right lower extremity Current Visit: Yes Status: Acute Assessment and plan: previous worked up a gonzalez, no fracture - as per family however X ray of ankle here showed fractures of the medial malleolus and distal fibula Has boot on and podiatry recommended outpatient follow up in one week after discharge for repeat xrays Ensure follow up with Podiatry For non-weight bearing on that limb Qualifiers: Encounter type: initial encounter Qualified Code(s): S93.431A - Sprain of tibiofibular ligament of right ankle, initial encounter (7) Hypothyroid Current Visit: Yes Status: Chronic Assessment and plan: continue home dose of levothyroixine Qualifiers: Hypothyroidism type: unspecified Qualified Code(s): E03.9 - Hypothyroidism , unspecified (8) Afib Current Visit: Yes Status: Chronic Assessment and plan: Continue Metoprolol and Diltiazem Warfarin held Qualifiers: Atrial fibrillation type: persistent Qualified Code(s): I48.1 - Persistent atrial fibrillation (9) CHF (congestive heart failure) Current Visit: Yes Status: Chronic Assessment and plan: Has diastolic CHF Continue Torsemide, Spironolactone, Loasrtan at low dose Monitor Chem Qualifiers: Heart failure type: unspecified Heart failure chronicity: unspecified Qualified Code(s): I50.9 - Heart failure, unspecified (10) Hypertension Current Visit: Yes Status: Chronic Assessment and plan: Controlled on current medications, continue same Qualifiers: Hypertension type: essential hypertension Qualified Code(s): I10 - Essential (primary) hypertension (11) Goals of care, counseling/discussion Current Visit: Yes Status: Chronic Assessment and plan: DNR-CCA-DNI (12) Fall Current Visit: Yes Status: Acute Assessment and plan: Head CT no acute findings For rehab at [facility] Qualifiers: Encounter type: initial encounter Qualified Code(s): W19.XXXA - Unspecified fall, initial encounter (13) DVT prophylaxis Current Visit: Yes Status: Acute Assessment and plan: EPCD. Coumadin currently held (14) Acute metabolic encephalopathy Current Visit: Yes Status: Resolved Assessment and plan: resolved (15) Acute upper GI bleed Current Visit: Yes Status: Resolved Assessment and plan: Suspected EGD with esophageal erosions, and no bleeding Continue PPI (16) Sepsis Current Visit: Yes Status: Resolved Assessment and plan: Resolved Sepsis with UTI and HCAP. Seen by ID. Completed course of cefepime initially. Possibly new HCAP developing. CXR showed new infiltrate CT showed new right sided pneumonia had had total 11 days of antibiotics, 3 cinthia hale po at SNF to complete 14 days of therapy (17) Pneumonia Current Visit: Yes Status: Acute Assessment and plan: has received total 11 hale of antibiotics Complete 3 more days of Augmentin Qualifiers: Pneumonia type: due to unspecified organism Laterality: unspecified laterality Lung location: unspecified part of lung Qualified Code(s): J18.9 - Pneumonia, unspecified organism (18) Hypernatremia Current Visit: Yes Status: Resolved Assessment and plan: See plan for hyponatremia. On free water (19) Anemia Current Visit: Yes Status: Acute Assessment and plan: Stable Qualifiers: Anemia type: unspecified type Qualified Code(s): D64.9 - Anemia, unspecified (20) Hypokalemia Current Visit: Yes Status: Acute Assessment and plan: K 2.9, possibly due to diuresis Replaced with 40meq potassium, recommend rechecking Chem at SNF to ensure correction Discharged on daily Potassium - Time Spent With Patient Total time spent is greater than 50% in coordination of care (as documented) at patient's floor/unit and/or counseling patient: - Subjective Interval history: Patient is seen and evaluated at the bedside with his spouse this morning, He is awake, alert and oriented 3 upon awakening. The patient was admitted following a mechanical fall with a nondisplaced right fibular fracture, supratherapeutic INR, hyponatremia, E coli UTI, staph epidermidis bacteremia, elevated troponins, acute kidney injury, most of which have resolved. He has a medical history of hypertension, atrial fibrillation. He is seen and examined at the bedside He is awaiting placement K 2.9 replaced, replaced, he is otherwise improving and can be discharged to SNF when accepted - Constitutional Vitals: Temp Pulse Resp BP Pulse Ox 98.1 F 96 8 110/70 96 08/13/17 07:13 08/13/17 07:13 08/13/17 12:10 08/13/17 07:13 08/13/17 12:10 General appearance: Present: cooperative, A&O X 3, pleasant, obese, answers questions appropriately - Head Head exam: Present: atraumatic, normocephalic - Eye Eye exam: Present: PERRL, conjuntiva pink, sclera anicteric Pupils: Present: PERRL - Neck Neck exam general surgery: Present: supple, trachea midline. Absent: lymphadenopathy - Respiratory Respiratory exam: Present: CTAB. Absent: accessory muscle use, rales, rhonchi, wheezes - Cardiovascular Cardiovascular exam: Present: RRR, +S1, +S2. Absent: diastolic murmur, gallop, rubs, systolic murmur - GI/Abdominal GI/Abdominal exam: Present: normal bowel sounds, soft, no peritoneal signs. Absent: distended, tenderness - Extremities Exam Extremities exam: Present: warm, radial pulses palpable and symmetrical. Absent : calf tenderness, cyanotic, pedal edema Additional comments: R leg in boots - Neurological Exam Neurological exam: Present: alert, CN II-XII intact, oriented X3, no focal deficits. Absent: pronater drift, facial droop, speech deficit - Skin Skin exam: Present: dry, intact Internal Medicine: Result - Labs CBC & Chem 7: 08/13/17 08:46 08/13/17 08:46 Labs: Short CBC 08/13/17 Range/Units 08:46 WBC 8.1 (4.3-11.1) K/mcL Hgb 9.9 L D (12.9-16.9) g/dL Hct 31.3 L (37.5-50.1) % Plt Count 203 (140-400) K/mcL Neutrophils # 6.3 (1.6-8.9) K/mcL BMP 08/13/17 08:46 Sodium 147 H Potassium 2.9 L Chloride 108 H Carbon Dioxide 31 H BUN 10 Creatinine 0.84 Glucose 208 H Calcium 8.5 L - ABG Interpretation ABG results: PT/INR, D-dimer PT 17.7 Seconds (9.4-12.1) H 08/09/17 08:38 - Impressions Impressions Abdomen/Pelvis CT 08/10/17 20:09 IMPRESSION: 1. No acute findings identified in the abdomen and pelvis. Assessment limited due to respiratory motion. 2. Colonic diverticulosis D/ / 08/10/2017 07:22:17 Jose Kaur MD / [email or web address] Interpreting Provider: Jose Kaur MD - VTE Documentation of Mechanical Device: Intermittent pneumatic compression device Consult Discharge Plan - Plan Instructions: Heart Failure (DC), Atrial Fibrillation (DC) Referrals: Garth Little DO [Primary Care Provider] - (will go to [facility])
[2017-08-13 16:19] VITALS: BP 102/63
== END 2017-08-13 18:28 | DRG 871 ==
LOC: EMEROO 02:17 → ICNU 02:17 → SUATTDRO 05:51 → ICNU 06:02 → 2SOUTHHOLD 08-05 23:00 → 2ANU 08-06 19:51
PROVIDERS: ADMIT Internal Medicine; ATTEND Internal Medicine

== ENCOUNTER 2021-01-17 10:27 | Observation (INO) ==
[2021-01-17 11:21] LABS: Basophils # 0.1 K/mcL (0.0-0.2); Basophils % 0.4 %; Eosinophils # 0.2 K/mcL (0.0-0.6); Eosinophils % 1.5 %; Hematocrit 29.2 % (37.5-50.1); Hemoglobin 9.3 g/dL (12.9-16.9); Immature Granulocytes % 0.6 % (0-4); Lymphocytes # 0.9 K/mcL (0.6-4.6); Lymphocytes % 6.9 %; Mean Corpuscular HGB Conc 31.8 g/dL (31.6-35.5); Mean Corpuscular Hemoglobin 30.2 pg (28.0-33.3); Mean Corpuscular Volume 94.8 fL (83.0-100.0); Mean Platelet Volume 9.9 fL (9.4-12.4); Monocytes % 7.9 %; Neutrophils # 10.7 K/mcL (1.6-8.9); Platelet Count 285 K/mcL (140-400); Red Blood Count 3.08 M/mcL (4.19-5.50); Red Cell Distribution Width 13.9 % (11.5-14.5); Segmented Neutrophils % 82.7 %
[2021-01-17 11:30] LABS: INR 2.6; Prothrombin Time 28.4 Seconds (9.4-12.1)
[2021-01-17 11:32] LABS: Activated Partial Thrombo Time 32.6 Seconds (26.0-36.0)
[2021-01-17 11:42] LABS: Alanine Aminotransferase 11 Units/L (7-52); Albumin 2.8 g/dL (3.5-5.7); Alkaline Phosphatase 44 Units/L (34-104); Aspartate Amino Transferase 13 Units/L (13-39); BUN/Creatinine Ratio 24 (6-26); Bilirubin,Direct 0.2 mg/dL (0.0-0.2); Bilirubin,Indirect 0.6 mg/dL (0.0-1.0); Bilirubin,Total 0.8 mg/dL (0.3-1.0); Blood Urea Nitrogen 22 mg/dL (8-23); Calcium 8.3 mg/dL (8.6-10.3); Carbon Dioxide 29 mEq/L (23-29); Chloride 100 mEq/L (98-107); Globulin 2.9 g/dL (2.4-3.5); Glucose 237 mg/dL (70-105); Osmolality,Calculated 293 (280-300); Potassium 3.7 mEq/L (3.5-5.1); Sodium 136 mEq/L (136-145); Total Protein 5.7 g/dL (6.4-8.9); eGFR For African Americans > 60 (> 60); eGFR For Non-African Americans > 60 (> 60)
[2021-01-17 11:44] LABS: Troponin I < 0.03 ng/mL (< 0.04)
[2021-01-17] MEDS ORDERED: Isovue-370 500 ML BOTTLE IVP ONE (11:47)
[2021-01-17] MEDS ORDERED: Azithromycin 250 MG TABLET PO ONE (14:41)
[2021-01-17] MEDS ORDERED: cefTRIAXone 2,000 MG in Water for inj. (sterile) 20 ML IVP ONE (14:41)
[2021-01-17] MEDS ORDERED: Ketorolac 30 MG/ML VIAL IVP ONE (15:16)
[2021-01-17] MEDS ORDERED: Naloxone 0.4 MG/ML INJ IVP PRN (15:51)
[2021-01-17] MEDS ORDERED: Perflutren Lipid Microsphere 1.3 ML in 0.9 % Sodium Chloride 8.7 ML IVP PRN (16:32)
[2021-01-17 16:53] LABS: Bacteria,Urine Few per hpf (None-Few); Bilirubin,Urine Negative (Negative); Blood,Urine Negative (Negative); Clarity,Urine Clear (Clear); Color,Urine Light-Yellow (Yellow); Glucose,Urine (UA) >=1000 mg/dL (Normal); Ketones,Urine Negative (Negative); Leukocyte Esterase,Urine Small (Negative); Mucus,Urine Few per lpf (None-Few); Nitrite,Urine Negative (Negative); Protein,Urine Negative (Neg-Trace); RBC,Urine 0-3 per hpf (0-3); Specific Gravity,Urine > 1.030 (1.010-1.025); Squamous Epithelial Cell,Urine Few per hpf (None-Few); Urobilinogen,Urine Normal (Normal); WBC,Urine 15-30 per hpf (0-3)
[2021-01-17] MEDS ORDERED: Piperacillin/Tazobactam 3.375 GM in 0.9 % Sodium Chloride Mini Bag 100 ML IVPB SCH (17:00)
[2021-01-17] MEDS ORDERED: *HR* OxyCODONE/APAP 5/325 TABLET PO PRN (17:18)
[2021-01-17] MEDS ORDERED: Dextrose Gel 15 GM/37.5 ML TUBE PO PRN ×4 (17:44)
[2021-01-17] MEDS ORDERED: *HR* Dextrose 50 % in Water (Syg) 50 ML SYRINGE IVP PRN (17:44)
[2021-01-17] MEDS ORDERED: D5% in Water 1,000 ML IVC PRN (17:44)
[2021-01-17] MEDS: Insulin LISPRO 300 UNITS/3 ML VIAL SUBQ SCH (17:59)
[2021-01-17] MEDS ORDERED: *HR* Heparin 5,000 UNIT/ML VIAL SQ SCH (18:00)
[2021-01-17] MEDS ORDERED: Warfarin perPT PO PRN (18:00)
[2021-01-17] MEDS ORDERED: Piperacillin/Tazobactam 4.5 GM in 0.9 % Sodium Chloride Mini Bag 100 ML IVPB SCH (18:02)
[2021-01-17] MEDS ORDERED: *HR* Warfarin 5 MG TABLET PO ONE (18:30)
[2021-01-17] MEDS: Sennosides/Docusate Sodium TABLET PO SCH (20:03)
[2021-01-17] MEDS: Budesonide/Formoterol 160/4.5 1 PUFF INH IH SCH (20:58)
[2021-01-17] MEDS ORDERED: traZODone 50 MG TABLET PO SCH (21:00)
[2021-01-18] MEDS: Insulin LISPRO 300 UNITS/3 ML VIAL SUBQ SCH ×3 (00:08→18:47)
[2021-01-18] MEDS: Piperacillin/Tazobactam 3.375 GM in 0.9 % Sodium Chloride Mini Bag 100 ML IVPB SCH ×3 (01:02→18:48)
[2021-01-18 02:13] LABS: Basophils % 0.2 %; Eosinophils # 0.2 K/mcL (0.0-0.6); Eosinophils % 2.4 %; Hematocrit 25.5 % (37.5-50.1); Immature Granulocytes % 0.8 % (0-4); Lymphocytes # 1.4 K/mcL (0.6-4.6); Lymphocytes % 14.8 %; Mean Corpuscular HGB Conc 31.8 g/dL (31.6-35.5); Mean Corpuscular Hemoglobin 29.9 pg (28.0-33.3); Mean Corpuscular Volume 94.1 fL (83.0-100.0); Mean Platelet Volume 9.9 fL (9.4-12.4); Monocytes # 0.9 K/mcL (0.0-1.3); Monocytes % 9.2 %; Neutrophils # 6.8 K/mcL (1.6-8.9); Platelet Count 264 K/mcL (140-400); Red Blood Count 2.71 M/mcL (4.19-5.50); Red Cell Distribution Width 13.9 % (11.5-14.5); Segmented Neutrophils % 72.6 %; White Blood Count 9.3 K/mcL (4.3-11.1)
[2021-01-18 02:15] LABS: Hemoglobin 8.1 g/dL (12.9-16.9)
[2021-01-18 02:22] LABS: INR 2.8; Prothrombin Time 31.1 Seconds (9.4-12.1)
[2021-01-18 02:32] LABS: BUN/Creatinine Ratio 22 (6-26); Blood Urea Nitrogen 23 mg/dL (8-23); Calcium 8.1 mg/dL (8.6-10.3); Carbon Dioxide 30 mEq/L (23-29); Chloride 101 mEq/L (98-107); Chol/HDL Ratio 3.5 (0-4.9); Cholesterol 85 mg/dL (< 200); Glucose 152 mg/dL (70-105); HDL Cholesterol 24 mg/dL (40-59); LDL Cholesterol,Calculated 46 mg/dL (< 100); Magnesium 2.2 mg/dL (1.6-2.6); Osmolality,Calculated 295 (280-300); Potassium 3.3 mEq/L (3.5-5.1); Sodium 139 mEq/L (136-145); Triglycerides 76 mg/dL (< 150); eGFR For African Americans > 60 (> 60); eGFR For Non-African Americans > 60 (> 60)
[2021-01-18 02:36] LABS: Iron 32 mcg/dL (65-175)
[2021-01-18 02:49] LABS: Ferritin 111 ng/mL (20-250)
[2021-01-18 03:34] LABS: % Iron Saturation 16 % (20-55); Transferrin 140 mg/dL (203-362)
[2021-01-18] MEDS ORDERED: Tiotropium 10 INH DOSE IH ONE (07:23)
[2021-01-18] MEDS: Budesonide/Formoterol 160/4.5 1 PUFF INH IH SCH ×2 (07:25→19:49)
[2021-01-18] MEDS ORDERED: Regadenoson 0.4 MG/5 ML SYRINGE IVP ONE (08:33)
[2021-01-18] MEDS ORDERED: Loratadine 10 MG TABLET PO SCH (09:00)
[2021-01-18] MEDS ORDERED: INSULIN GLARGINE HUM REC ANLOG SQ SCH (09:00)
[2021-01-18] MEDS ORDERED: polyethylene glycoL 3350 17 GM POWD.PACK PO SCH (09:00)
[2021-01-18] MEDS ORDERED: [UNRECOGNIZED DRUG - OTHER] SQ SCH (09:00)
[2021-01-18] MEDS ORDERED: WARFARIN SODIUM 6 MG PO SCH (09:00)
[2021-01-18] MEDS ORDERED: Spironolactone 25 MG TABLET PO SCH (09:00)
[2021-01-18] MEDS ORDERED: Tiotropium 10 INH DOSE IH SCH (10:00)
[2021-01-18 11:13] VITALS: BP 122/66; PULSE 84; TEMP 97.5
[2021-01-18] MEDS: Sennosides/Docusate Sodium TABLET PO SCH (13:19)
[2021-01-18] MEDS ORDERED: *HR* Warfarin 5 MG TABLET PO ONE (18:00)
[2021-01-18 19:53] VITALS: O2SAT 99
== END 2021-01-18 21:00 ==
LOC: 3BNU 10:27 → EMEROOARM 10:27 → 3BNU 17:10
PROVIDERS: ADMIT Internal Medicine; ATTEND Internal Medicine